=== PATIENT | male | born 1940 | race Caucasian/White ===

== ENCOUNTER 2017-12-27 15:54 | Emergency (ER) | payer MEDICARE ==
--- NOTE | 2017-12-27 16:52 | ED ---
HPI Cardiac - HPI Summary HPI Summary: This patient is a 77 year old M [facility] sister after his PCP sent him for an abnormal EKG. Pt saw Dr Tobias for a routine physical this morning and was sent here. The patient rates the pain 0/10 in severity. Patient denies SOB, CP, palpitations, fever, cough, ABD pain, LE edema , and recent illness. Pt has chronic ARRIETA s/p triple bypass. Pt states that he feels fine and has no complaints at this time. - History of Current Complaint Chief Complaint: EDDysrhythmPalp Stated Complaint: SENT OVER BY DR TOBIAS Time Seen by Provider: 12/27/17 16:41 Hx Obtained From: Patient Onset/Duration: Still Present Current Severity: None Pain Intensity: 0 Pain Scale Used: 0-10 Numeric Chest Pain Radiates: No Aggravating Factor(s): Nothing Alleviating Factor(s): Nothing Associated Signs and Symptoms: Positive: Negative - SOB, CP, palpitations, fever , cough, ABD pain, LE edema, and recent illness - Allergy/Home Medications Allergies/Adverse Reactions: Allergies Allergy/AdvReac Type Severity Reaction Status Date / Time No Known Allergies Allergy Verified 07/04/15 12:27 Home Medications: Home Medications Atorvastatin* [Lipitor*] 20 mg PO QPM 12/27/17 [History Confirmed 12/27/17] Cholecalciferol (Vitamin D3) [Vitamin D3] 1,000 unit PO DAILY 12/27/17 [History Confirmed 12/27/17] Cyanocobalamin INJ * [Vitamin B12 INJ *] 1,000 mcg IM .EVERY 3 MONTHS 12/27/17 [ History Confirmed 12/27/17] Glimepiride 1 mg PO AC 12/27/17 [History Confirmed 12/27/17] Lisinopril TAB* [Prinivil TAB*] 10 mg PO DAILY 12/27/17 [History Confirmed 12/27] Metoprolol Tartrate TAB* [Lopressor TAB*] 50 mg PO BID 12/27/17 [History Confirmed 12/27/17] amLODIPine TAB* [Norvasc 5 mg TAB*] 5 mg PO DAILY 12/27/17 [History Confirmed ] PMH/Surg Hx/FS Hx/Imm Hx Endocrine/Hematology History: Reports: Hx Diabetes - DM 2, Hx Thyroid Disease - HYPOTHYROIDISM Denies: Hx Systemic Lupus Erythematosus Cardiovascular History: Reports: Hx Coronary Artery Disease, Hx Hypercholesterolemia - HLD, Hx Hypertension - not on meds, Hx Valvular Heart Disease - SEVERE AORTIC REGURITATION, HX MECHANICAL (NOW BOVINE) VALVE, Other Cardiovascular Problems/Disorders - borderline diabetic, on metformin only Denies: Hx Congestive Heart Failure, Hx Pacemaker/ICD Respiratory History: Denies: Hx Asthma Musculoskeletal History: Denies: Hx Rheumatoid Arthritis Sensory History: Reports: Hx Hearing Aid - DOES NOT WEAR, Hx Hearing Problem - [place], HEARING AIDES NOT WITH PT Psychiatric History: Denies: Hx Panic Disorder - Surgical History Surgery Procedure, Year, and Place: CAROTID ARTERY (NO STENTS) SEPTEMBER 2014;. CABG 2002 WITH MECHANICAL AORTIC VALVE ;. MECHANICAL VALVE REPLACEMENT AT [facility] 10/2012 TO BOVINE VALVE; ( CURRENTLY ONLY HAS A BOVINE VALVE ) NO HEART STENTS CAN FIND THIS SURGERY INFORMATION IN SCANNED IN REPORTS; Hx Anesthesia Reactions: No Infectious Disease History: No Infectious Disease History: Denies: Traveled Outside the [place] in Last 30 Days - Social History Alcohol Use: None Substance Use Type: Reports: None Smoking Status (MU): Never Smoked Tobacco Review of Systems Negative: Fever Negative: Chest Pain Negative: Shortness Of Breath Negative: Abdominal Pain Negative: Edema All Other Systems Reviewed And Are Negative: Yes Physical Exam - Summary Physical Exam Summary: Appearance: Well-appearing, Well-nourished, lying in bed comfortably Skin: Warm, dry, no obvious rash Eyes: sclera anicteric, no conjunctival pallor ENT: mucous membranes moist, pharynx appears normal Neck: Supple, nontender Respiratory: Clear to auscultation, no signs of respiratory distress Cardiovascular: Normal S1, S2. No murmurs. Normal distal pulses in tibial and radial bilaterally. Abdomen: Soft, nontender, normal active bowel sounds present Musculoskeletal: Normal, Strength/ROM Intact Neurological: A&Ox3, awake and alert, mentation is normal, speech is fluent and appropriate Psychiatric: affect is normal, does not appear anxious or depressed Triage Information Reviewed: Yes Vital Signs On Initial Exam: Initial Vitals Temp Pulse Resp BP Pulse Ox 97.6 F 60 16 145/64 98 12/27/17 16:05 12/27/17 16:05 12/27/17 16:05 12/27/17 16:05 12/27/17 16:05 Vital Signs Reviewed: Yes Diagnostics - Vital Signs Vital Signs Temp Pulse Resp BP Pulse Ox 12/27/17 16:05 97.6 F 60 16 145/64 98 - Laboratory Result Diagrams: 12/27/17 16:56 12/27/17 16:56 Lab Statement: Any lab studies that have been ordered have been reviewed, and results considered in the medical decision making process. - EKG 1610 Cardiac Rate: NL EKG Rhythm: Sinus Bradycardia - at 63 BPM EKG Interpretation: diffuse t wave changes Disposition - Course Assessment/Plan: This patient is a 77 year old M presenting to [facility] accompanied by his sister after his PCP sent him for an abnormal EKG. Pt saw Dr Tobias for a routine physical this morning and was sent here. The patient rates the pain 0/10 in severity. Patient denies SOB, CP, palpitations, fever, cough, ABD pain, LE edema, and recent illness. Pt has chronic ARRIETA s/p triple bypass. Pt states that he feels fine and has no complaints at this time. An EKG reveals diffuse t wave inversions and NSR. Blood work obtained. Patient will be discharged follow up from PCP. The patient is agreeable with this plan. - Diagnoses Provider Diagnoses: Acute electrocardiogram changes Discharge - Sign-Out/Discharge Documenting (check all that apply): Patient Departure - Discharge Plan Condition: Good Disposition: HOME Patient Education Materials: Coronary Artery Disease (DC) Referrals: Amos Tobias MD [Primary Care Provider] - Additional Instructions: You have not had any symptoms referable to your heart recently and your blood tests are good, there is no sign of any heart damage recently. 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 - Attestation Statements Document Initiated by Scribe: Yes Documenting Scribe: Rm Pineda Provider For Whom Zakiya is Documenting (Include Credential): Chalo Mcknight MD Scribe Attestation: IRm, scribed for Chalo Mcknight MD on 12/27/17 at 1919.
[2017-12-27 17:09] LABS: ABS Basophils 0.1 10^3/ul (0-0.2); ABS Eosinophils 0.1 10^3/ul (0-0.6); ABS Lymphocytes 1.3 10^3/ul (1.0-4.8); ABS Monocytes 0.6 10^3/ul (0-0.8); ABS Neutrophils 3.3 10^3/ul (1.5-7.7); ABS Nucleated RBC 0 10^3/ul; Eosinophil % 2.3 % (0-6); Hematocrit 38 % (42-52); Hemoglobin 12.3 g/dl (14.0-18.0); Mean Corpuscular HGB Conc 33 g/dl (31-36); Mean Corpuscular Hemoglobin 32 pg (27-31); Mean Corpuscular Volume 97 fL (80-94); Mean Platelet Volume 7.3 um3 (7.4-10.4); Nucleated Red Blood Cells % 0.1; Platelet Count 188 10^3/ul (150-450); Red Blood Count 3.85 10^6/ul (4.00-5.40); Red Cell Distribution Width 15 % (10.5-15); White Blood Count 5.4 10^3/ul (3.5-10.8)
[2017-12-27 17:22] LABS: EGFR Non-African American 35.6 (>60)
[2017-12-27 20:33] VITALS: BP 152/84
== END 2017-12-27 20:20 | disposition home or self-care (01) ==
LOC: ED 15:54
DX: R94.31 Abnormal electrocardiogram [ECG] [EKG] (principal); R00.1 Bradycardia, unspecified; I25.10 Atherosclerotic heart disease of native coronary artery without angina pectoris; I10 Essential (primary) hypertension; E11.9 Type 2 diabetes mellitus without complications; E03.9 Hypothyroidism, unspecified; Z79.899 Other long term (current) drug therapy
CPT/HCPCS: 36415; 80048; 84484; 85025; 93005; 99284

== ENCOUNTER 2018-06-14 19:23 | Emergency (ER) | payer MEDICARE ==
[2018-06-14 19:37] VITALS: BP 125/58
== END 2018-06-14 23:28 | disposition left against medical advice (07) ==
LOC: ED 19:23
DX: R06.02 Shortness of breath (principal); Z53.21 Procedure and treatment not carried out due to patient leaving prior to being seen by health care provider

== ENCOUNTER 2018-06-15 08:16 | Inpatient (IN) | payer MEDICARE ==
--- NOTE | 2018-06-15 09:41 | ED ---
Shortness of Breath - HPI Summary HPI Summary: A 77 y/o male presents to [facility] with a chief complaint of SOB for the past few days. He reports that his left leg is swollen and his SOB is worsened when he walks and is better at rest. He denies chest pain. At triage he rated his pain as a 0/10 in severity. Vital signs while in room HR: 66bpm, O2 Sat: 92, BP: 110 /53 - History of Current Complaint Chief Complaint: EDShortnessOfBreath Time Seen by Provider: 06/15/18 08:55 Hx Obtained From: Patient Onset/Duration: Sudden Onset, Lasting Days Timing: Constant Current Severity: Mild Dyspnea At: Exertion Aggrevating Factors: Movement Alleviating Factors: Other - rest Associated Signs & Symptoms: Edema - Allergy/Home Medications Allergies/Adverse Reactions: Allergies Allergy/AdvReac Type Severity Reaction Status Date / Time No Known Allergies Allergy Verified 06/15/18 08:18 PMH/Surg Hx/FS Hx/Imm Hx Endocrine/Hematology History: Reports: Hx Diabetes - DM 2, Hx Thyroid Disease - HYPOTHYROIDISM Denies: Hx Systemic Lupus Erythematosus Cardiovascular History: Reports: Hx Coronary Artery Disease, Hx Hypercholesterolemia - HLD, Hx Hypertension - not on meds, Hx Valvular Heart Disease - SEVERE AORTIC REGURITATION, HX MECHANICAL (NOW BOVINE) VALVE, Other Cardiovascular Problems/Disorders - borderline diabetic, on metformin only Denies: Hx Congestive Heart Failure, Hx Pacemaker/ICD Respiratory History: Denies: Hx Asthma Musculoskeletal History: Denies: Hx Rheumatoid Arthritis Sensory History: Reports: Hx Hearing Aid - DOES NOT WEAR, Hx Hearing Problem - [place], HEARING AIDES NOT WITH PT Psychiatric History: Denies: Hx Panic Disorder - Surgical History Surgery Procedure, Year, and Place: CAROTID ARTERY (NO STENTS) SEPTEMBER 2014;. CABG 2002 WITH MECHANICAL AORTIC VALVE ;. MECHANICAL VALVE REPLACEMENT AT [facility] 10/2012 TO BOVINE VALVE; ( CURRENTLY ONLY HAS A BOVINE VALVE ) NO HEART STENTS CAN FIND THIS SURGERY INFORMATION IN SCANNED IN REPORTS; Hx Anesthesia Reactions: No Infectious Disease History: No Infectious Disease History: Denies: Traveled Outside the [place] in Last 30 Days - Family History Known Family History: Negative: Blood Disorder - Social History Alcohol Use: None Substance Use Type: Reports: None Smoking Status (MU): Never Smoked Tobacco Review of Systems Negative: Fever Negative: Chest Pain Positive: Shortness Of Breath All Other Systems Reviewed And Are Negative: Yes Physical Exam - Summary Physical Exam Summary: Appearance: The patient is well-nourished in no acute distress and in no acute pain. Skin: The skin is warm and dry and skin color reflects adequate perfusion. HEENT: The head is normocephalic and atraumatic. The pupils are equal and reactive. The conjunctivae are clear and without drainage. Nares are patent and without drainage. Mouth reveals moist mucous membranes and the throat is without erythema and exudate. The external ears are intact. The ear canals are patent and without drainage. The tympanic membranes are intact. Neck: The neck is supple with full range of motion and non-tender. There are no carotid bruits. There is no neck vein distension. Respiratory: Chest is non-tender. Crackles [address] bil[address]. Cardiovascular: Heart is borderline tachycardic. There is no murmur or rub auscultated. Pulses are symmetrical and equal. Abdomen: The abdomen is soft and non-tender. There are normal bowel sounds heard in all four quadrants and there is no organomegaly palpated. Musculoskeletal: There is no back tenderness noted. Extremities are non-tender with full range of motion. There is good capillary refill. Bilateral pitting edema, left leg is worse than right. Neurological: Patient is alert and oriented to person, place and time. The patient has symmetrical motor strength in all four extremities. Cranial nerves are grossly intact. Deep tendon reflexes are symmetrical and equal in all four extremities. Psychiatric: The patient has an appropriate affect and does not exhibit any anxiety or depression. Triage Information Reviewed: Yes Vital Signs On Initial Exam: Initial Vitals Temp Pulse Resp BP Pulse Ox 97.3 F 67 20 121/58 96 06/15/18 08:18 06/15/18 08:18 06/15/18 08:18 06/15/18 08:18 06/15/18 08:18 Vital Signs Reviewed: Yes Diagnostics - Vital Signs Vital Signs Temp Pulse Resp BP Pulse Ox 06/15/18 09:26 94 06/15/18 09:14 69 24 135/63 96 06/15/18 09:00 66 20 91 06/15/18 08:46 20 06/15/18 08:45 70 96 06/15/18 08:44 65 110/53 95 03/21/19 08:18 97.3 F 67 20 121/58 96 - Laboratory Result Diagrams: 06/15/18 09:40 06/15/18 09:40 Lab Statement: Any lab studies that have been ordered have been reviewed, and results considered in the medical decision making process. - Radiology CXR Radiology Interpretation Completed By: Radiologist Summary of Radiographic Findings: Pulmonary edema with associated RIGHT larger than LEFT pleural effusions new compared. with the prior exam. ED physician has reviewed this imaging report. - EKG 09:34 Cardiac Rate: NL - 68 bpm EKG Rhythm: Sinus Rhythm Ectopy: PVCs EKG Comparison: No Significant Change Summary of EKG Findings: Normal sinus rhythm at 68 bpm, PVCs, no change from previous EKG done 12/27/17. Course/Dx - Diagnoses Provider Diagnoses: CHF (congestive heart failure) - Physician Notifications Discussed Care of Patient With: Magalie Urias Time Discussed With Above Provider: 11:19 Instructed by Provider To: Admit As Inpatient Discharge - Sign-Out/Discharge Documenting (check all that apply): Patient Departure - admit Patient Received Moderate/Deep Sedation with Procedure: No - Discharge Plan Condition: Fair Disposition: ADMITTED TO [facility] Referrals: Amos Reed MD [Primary Care Provider] - - Attestation Statements Document Initiated by Scribe: Yes Documenting Scribe: Jef Blackwood Provider For Whom Scribe is Documenting (Include Credential): Chalo Alvarenga MD Scribe Attestation: Jef Mansfield, scribed for Chalo Alvarenga MD on 06/15/18 at 1121. Status of Scribe Document: Ready
[2018-06-15 10:13] LABS: ABS Basophils 0.1 10^3/ul (0-0.2); ABS Eosinophils 0.1 10^3/ul (0-0.6); ABS Lymphocytes 0.8 10^3/ul (1.0-4.8); ABS Monocytes 0.6 10^3/ul (0-0.8); ABS Neutrophils 4.2 10^3/ul (1.5-7.7); ABS Nucleated RBC 0 10^3/ul; Eosinophil % 1.3 %; Hematocrit 33 % (36-46); Hemoglobin 10.7 g/dL (14.0-18.0); Lymphocyte % 14.5 %; Mean Corpuscular HGB Conc 32 g/dL (31-36); Mean Corpuscular Hemoglobin 32 pg (27-31); Mean Corpuscular Volume 98 fL (80-94); Mean Platelet Volume 7.4 fL (7.4-10.4); Nucleated Red Blood Cells % 0.1; Platelet Count 195 10^3/uL (150-450); Red Blood Count 3.39 10^6 /uL (4.18-5.48); Red Cell Distribution Width 16 % (10.5-15); White Blood Count 5.8 10^3/uL (3.5-10.8)
[2018-06-15 10:37] LABS: ALT 23 U/L (7-52); AST 27 U/L (13-39); Albumin 3.6 g/dL (3.2-5.2); Albumin/Globulin Ratio 1.3 (1-3); Alkaline Phosphatase 141 U/L (34-104); BUN/Creatinine Ratio 22.4 (8-20); Blood Urea Nitrogen 46 mg/dL (6-24); C Reactive Protein 11.96 mg/L (<8.01); CO2 Carbon Dioxide 18 mmol/L (22-32); Calcium 8.7 mg/dL (8.6-10.3); Chloride 107 mmol/L (101-111); EGFR African American 38.3 (>60); EGFR Non-African American 31.6 (>60); Globulin 2.7 g/dL (2-4); Glucose 73 mg/dL (70-100); Sodium 134 mmol/L (135-145); Total Protein 6.3 g/dL (6.4-8.9)
[2018-06-15 11:03] LABS: Anion Gap 9 mmol/L (2-11); Potassium 5.6 mmol/L (3.5-5.0); Troponin I 0.04 ng/mL (<0.04)
[2018-06-15 11:46] LABS: Urine Appearance Clear; Urine Blood 1+ (Negative); Urine Color Yellow; Urine Ketones Negative (Negative); Urine Nitrite Negative (Negative); Urine Protein 1+(30 mg/dL) (Negative); Urine Urobilinogen Negative (Negative)
[2018-06-15 11:47] LABS: Urine Bilirubin Negative (Negative); Urine Glucose Negative (Negative)
[2018-06-15] MEDS ORDERED: Acetaminophen TAB* 325 MG PO PRN (12:16)
[2018-06-15] MEDS ORDERED: Dextrose 50% Syringe 50 ML* 25 GM/50 ML SYRINGE IV PUSH PRN (12:22)
[2018-06-15] MEDS ORDERED: Furosemide IV* 10 MG/ML 10 ML VIAL (100 MG) IV ONE (12:40)
--- NOTE | 2018-06-15 14:47 | ECHO ---
Patient: VITALIY KAY [facility] Rec#: [id number] : 1940 Date: 06/15/2018 Age: 77y Height: 163 cm / 64.2 in Weight: 86 kg / 189.5 lbs Sex: M BSA: 1.92 Room#: [facility] Admit Date#: 06/15/2018 Type: Inpatient Referring: Dione Woodard Reading: Quincy Carey MD Commercial Light Fixture Assembler: Sara Horvath RDCS CC: Amos Reed MD CC: Marcos Palencia MD Transthoracic Echocardiogram Indication: Congestive heart failure BP: 121/63 HR: 75 Rhythm: NSR with PVCs Findings History: DMII, hypothyroidism, CAD, HLD, HTN, AVR (Bovine) 2012, CABG. Technical Comments: The study quality is fair. Completed at 1400. Left Ventricle: The left ventricular chamber size is mildly dilated. Mild concentric left ventricular hypertrophy is observed. There are multiple regional wall motion abnormalities. There is moderately decreased left ventricular systolic function. The estimated ejection fraction is 35-40%. Post surgical hypokinesis of the interventricular septum is observed consistent with valve replacement. The assessment of diastolic function is non-diagnostic. Left Atrium: The left atrium is moderate to severely dilated. Right Ventricle: The right ventricle is mild to moderately dilated. The right ventricular global systolic function is moderately reduced. Right Atrium: The right atrium is moderate to severely dilated. Aortic Valve: The aortic valve structure is not well visualized. There is a trace of aortic regurgitation. There is mild aortic stenosis. The mean gradient of the aortic valve is 12 mmHg. The peak instantaneous gradient of the aortic valve is 23 mmHg. A bovine bio-prosthetic aortic valve is present. which appears to be normally functioning. Mitral Valve: There is mitral annular calcification. Mild mitral leaflet calcification is visualized. There is mild to moderate mitral regurgitation. Tricuspid Valve: The tricuspid valve leaflets are normal. There is mild to moderate tricuspid regurgitation. The right ventricular systolic pressure is estimated at 52 mmHg. There is evidence of moderate pulmonary hypertension. Pulmonic Valve: The pulmonic valve structure is not well visualized. There is no evidence of pulmonic regurgitation. There is no pulmonic stenosis. Pericardium: There is no significant pericardial effusion. Aorta: There is no dilatation of the ascending aorta. There is no dilatation of the aortic arch. The aortic root is normal in size. Pulmonary Artery: The main pulmonary artery is not well visualized. Venous: The inferior vena cava is not visualized. Conclusions There is moderately decreased left ventricular systolic function. The estimated ejection fraction is 35-40%. There are multiple regional wall motion abnormalities. The left ventricular chamber size is mildly dilated. Mild concentric left ventricular hypertrophy is observed. The left atrium is moderate to severely dilated. The right ventricle is mild to moderately dilated. The right ventricular global systolic function is moderately reduced. The right atrium is moderate to severely dilated. A bovine bio-prosthetic aortic valve is present which appears to be normally functioning. There is mild to moderate mitral regurgitation. There is mild to moderate tricuspid regurgitation. There is evidence of moderate pulmonary hypertension. Since the prior echocardiogram completed 08/19/16, pertinennt changes are prior normal right and left ventricular sized noted, prior normal right and left ventricular function noted and prior no pulmonary hypertension noted Measurements Name Value Normal Range RVIDd (AP) 2D 3.4 cm (0.9 - 2.6) RVDdMajor (2D) 5.2 cm (2.2 - 4.4) RAd ISD 4CH 6 cm (3.4 - 4.9) RA (A4C)W 5.3 cm (2.9 - 4.6) IVSd (2D) 1.1 cm (0.6 - 1) LVPWd (2D) 1.1 cm (0.6 - 1) LVIDd (2D) 5.6 cm (3.6 - 5.4) LVIDs (2D) 4.6 cm - LV FS (2D) 18 % (25 - 45) Aortic Annulus 2 cm (1.4 - 2.6) Ao root diameter (2D) 3 cm (2.1 - 3.5) Ascending Ao 3.2 cm (2.1 - 3.4) Aortic arch 3.1 cm (1.8 - 3.4) LA dimension (AP) 2D 4.9 cm (2.3 - 3.8) LAd ISD 4CH 6.5 cm (2.9 - 5.3) LA ISD 4CH W 5.8 cm (2.5 - 4.5) Name Value Normal Range LA ESV BP (A/L) index 49 ml/m2 - Name Value Normal Range MV E-wave Vmax 1.1 m/sec - MV deceleration time 162 msec - MV A-wave Vmax 0.4 m/sec - MV E:A ratio 3 ratio - LV septal e' Vmax 0.05 m/sec - LV lateral e' Vmax 0.06 m/sec - LV E:e' septal ratio 22 ratio - LV E:e' lateral ratio 18.3 ratio - Name Value Normal Range AV Vmax 2.4 m/sec - AV VTI 49 cm - AV peak gradient 23 mmHg - AV mean gradient 12 mmHg - LVOT diameter 2 cm - LVOT Vmax 0.6 m/sec - LVOT VTI 15 cm - LVOT peak gradient 2 mmHg - LVOT mean gradient 1 mmHg - DOI (VTI) 0.31 ratio - MIRELLA (continuity VTI) 0.93 cm2 - DARYL Vmax 1.5 m/sec - Name Value Normal Range MR Vmax 5.2 m/sec - MR VTI 155 cm - MR flow (PISA) 108.1 ml/sec - MR ERO 0.21 cm2 - MR PISA radius 0.7 cm - MR alias Vmax 35.1 cm/sec - Name Value Normal Range TR Vmax 3.3 m/sec - TR peak gradient 44 mmHg - RAP 8 mmHg - RVSP 52 mmHg - Name Value Normal Range PV Vmax 1.1 m/sec - PV peak gradient 5 mmHg -
[2018-06-15] MEDS: Aspirin EC TAB* 81 MG TAB.EC PO SCH (16:26)
[2018-06-15] MEDS: Heparin VIAL(*) 5000 UNITS/ML VIAL (FIVE THOUSAND) SUBCUT SCH ×2 (16:26→21:18)
[2018-06-15 16:36] LABS: Troponin I 0.05 ng/mL (<0.04)
--- NOTE | 2018-06-15 16:56 | HP ---
CC: Dr. Reed; Dr. Palencia * HISTORY AND PHYSICAL: DATE OF ADMISSION: 06/15/18 PROVIDER: Dione Woodard NP PRIMARY CARE PROVIDER: Dr. Reed. ATTENDING PHYSICIAN WHILE IN THE HOSPITAL: Dr. Magalie Urias * (dictated by Dione Woodard NP). CHIEF COMPLAINT: Shortness of breath. HISTORY OF PRESENT ILLNESS: Mr. Walker is a 77-year-old male with a past medical history significant for hypertension, hyperlipidemia, aortic valve replacement, chronic ischemic heart disease, congestive heart failure, CAD, atrial fibrillation, hypothyroid, diabetes and B12 deficiency anemia, who presented to the emergency room with complaints of shortness of breath with exertion x1 week. The patient denies any other symptoms. Denies any fever or chills. Denies any chest pain. He does report increased lower extremity swelling. No cough, hemoptysis. Does report shortness of breath with exertion. Denies any nausea, vomiting, or diarrhea. Denies any abdominal pain, hematuria, dysuria, focal weakness, or sensory loss. Denies any arthralgias, myalgias, difficulty swallowing. He does have scabbed abrasions noted to bilateral lower extremities. Due to his increased shortness of breath, we were asked to see and evaluate him for admission. PAST MEDICAL HISTORY: Significant for: 1. Hypertension. 2. Hyperlipidemia. 3. Aortic valve replacement. 4. Chronic ischemic heart disease. 5. Congestive heart failure. 6. CAD. 7. Atrial fibrillation. 8. Hypothyroid. 9. Diabetes. 10. Vitamin B12 deficiency anemia. PAST SURGICAL HISTORY: 1. Left carotid endarterectomy. 2. CABG in October 2012. 3. LASIK eye surgery. 4. Aortic valve replacement in October 2012. HOME MEDICATIONS: 1. Atorvastatin 20 mg p.o. daily. 2. Aspirin 81 mg p.o. daily. 3. Lisinopril 10 mg p.o. daily. 4. Levothyroxine 75 mcg p.o. daily. 5. Glimepiride 1 mg p.o. a.c. 6. Vitamin B12 injection 1000 mcg every 3 months, is due for injection in June. 7. Vitamin D3 1000 units p.o. daily. 8. Metformin 1000 mg p.o. b.i.d. 9. Amlodipine 5 mg p.o. daily. 10. Metoprolol tartrate 50 mg p.o. b.i.d. ALLERGIES: No known drug allergies. FAMILY HISTORY: No reported history of coronary artery disease. Mother with a history of diabetes. Father with a history of colon cancer, and two sisters with breast cancer. SOCIAL HISTORY: Denies any tobacco use. Occasional alcohol use. No illicit drug use. He is retired. He is single. He lives with his 2 sisters. Surrogate decision maker in the event he is unable to make his own decisions is his sister, Kassidy. He is a full code. REVIEW OF SYSTEMS: A 14-point review of systems was completed. All pertinent positives are mentioned in the HPI. PHYSICAL EXAMINATION GENERAL: At this time, Mr. Walker is a 77-year-old male, he is alert and oriented , very hard of hearing, resting on the stretcher in the emergency room. He is not in any acute distress. HEENT: Head is atraumatic, normocephalic. Eyes: EOMs are intact. Sclerae anicteric and not pale. Oral mucosa appeared to be moist. NECK: Supple. He does have positive JVD. LUNGS: Diminished with expiratory wheezes and crackles at the bases bilaterally. HEART: S1, S2. He has irregular rate and rhythm. ABDOMEN: Soft and nontender. Bowel sounds are present x4. EXTREMITIES: Lower extremities, pedal pulses are +1 bilaterally. He has got + 2 pitting edema to bilateral lower extremities. Left leg is worse than right. NEUROLOGIC: He is awake, alert, oriented x3. Speech is clear. He has a severe hearing deficit with bilateral hearing aids. He has no gross focal deficits. SKIN: He has scattered abrasions noted to bilateral lower extremities. DIAGNOSTIC STUDIES/LAB DATA: WBCs are 5.8, RBCs 3.39, hemoglobin 10.7, hematocrit 33, platelet count 195. D-dimer is greater than 1050. Sodium 134, potassium 5.6, chloride 107, carbon dioxide was 18, anion gap 9, BUN 46, creatinine 2.05, glucose was 73, lactic acid was 1.1. ASTs were 27, ALTs were 23, alkaline phosphatase was 141. Troponin was 0.04. C-reactive protein was 11.96. BNP was greater than 1300. Urine, pH was 5, specific gravity 1.020, urine protein was 1+, ketones were negative, urine blood was 1+. Nitrites, bilirubin, urobilinogen, leukocyte esterase and glucose were all negative. He had a chest x-ray, radiologist's impression: Pulmonary edema associated with right larger than left pleural effusions. EKG shows minimal depression in V2 and flipped Ts. T-wave inversions in lead I, V4, V5 and V6 which are chronic. He had a venous Doppler. No evidence of right or left lower extremity DVT. He had transthoracic echocardiogram, which showed estimated ejection fraction 35% to 40%, moderately decreased left ventricular systolic function, multiple regions of wall motion abnormality, left ventricular chamber size is mildly dilated, left atrium is moderate to severely dilated, right ventricle is moderate to severely dilated. Right ventricular global systolic function is moderately reduced. ASSESSMENT AND PLAN: Mr. Walker is a 77-year-old male who presented to the emergency room for complaints of increased shortness of breath with exertion x1 week and lower extremity swelling, found to have congestive heart failure. He will be admitted inpatient for: 1. Acute congestive heart failure. I suspect this is the cause of his exertional shortness of breath. His BNP was greater than 1300. He does have + 2 to +3 pitting edema to bilateral lower extremities. There is no reported weight gain. The patient does appear comfortable resting in bed. I will give him a small dose of Lasix 20 mg IV. We will monitor on telemetry. I will place him on strict I's and O's and daily weights. We have ordered a transthoracic echocardiogram, which does show a decreased ejection fraction. 2. Diabetes. I will place him on fingersticks a.c. with lispro sliding scale. I will hold his glimepiride and metformin at this time. 3. Hypertension. I will continue him on metoprolol and lisinopril. We are going to hold his lisinopril as we are giving him diuretics and continue his amlodipine at 5 mg p.o. daily. 4. Hyperlipidemia. We will continue his atorvastatin. 5. Coronary artery disease. We will continue on aspirin, statin and beta sanaz as previously prescribed. 6. Hypothyroid. I will continue on his levothyroxine at 75 mcg p.o. daily. 7. Hyperkalemia. His potassium is 5.6 on admission. I will repeat a potassium level at 8 p.m. this evening as he did receive Lasix and I suspect this will bring his potassium level down. If it does not, we will consider a dose of Kayexalate to help bring the potassium down. 8. Elevated D-dimer. The patient does have an elevated D-dimer of greater than 1050 with reports of increased shortness of breath x1 week. His Wells score is 0 giving him a low risk. He has a negative venous ultrasound of the bilateral lower extremities . 9. Code status: He is a full code. 10. DVT prophylaxis: I will place him on heparin subcu. 11. Disposition: He will be placed on observation on telemetry. TIME SPENT: Time spent on this admission was 60 minutes, greater than half that time was spent [id number] with the patient obtaining my history and physical, performing my physical exam, the other half of the time was spent implementing my plan of care and reviewing my plan of care. I have discussed this with my attending, Dr. Magalie Urias; she is in agreement with my plan. DIONE WOODARD, MARCELO [id number]/CPS #: [id number] MIKE
[2018-06-15] MEDS: Insulin LISPRO* 1 UNITS UNIT SUBCUT SCH (17:08)
[2018-06-15] MEDS: Atorvastatin* 20 MG TAB PO SCH (17:08)
[2018-06-15 20:19] LABS: Potassium 5.2 mmol/L (3.5-5.0)
[2018-06-15] MEDS: Metoprolol Tartrate TAB* 50 mg PO SCH (21:18)
[2018-06-16 01:01] LABS: Troponin I 0.05 ng/mL (<0.04)
[2018-06-16] MEDS: Levothyroxine TAB* 75 MCG TAB PO SCH (05:03)
[2018-06-16] MEDS: Heparin VIAL(*) 5000 UNITS/ML VIAL (FIVE THOUSAND) SUBCUT SCH ×3 (05:03→21:08)
[2018-06-16 06:41] LABS: ABS Basophils 0.1 10^3/ul (0-0.2); ABS Eosinophils 0.1 10^3/ul (0-0.6); ABS Lymphocytes 0.8 10^3/ul (1.0-4.8); ABS Monocytes 0.6 10^3/ul (0-0.8); ABS Neutrophils 4.5 10^3/ul (1.5-7.7); ABS Nucleated RBC 0 10^3/ul; Eosinophil % 1.2 %; Hematocrit 33 % (36-46); Lymphocyte % 12.9 %; Mean Corpuscular HGB Conc 33 g/dL (31-36); Mean Corpuscular Hemoglobin 32 pg (27-31); Mean Corpuscular Volume 97 fL (80-94); Mean Platelet Volume 7.6 fL (7.4-10.4); Nucleated Red Blood Cells % 0; Platelet Count 201 10^3/uL (150-450); Red Blood Count 3.46 10^6 /uL (4.18-5.48); Red Cell Distribution Width 16 % (10.5-15)
[2018-06-16 07:09] LABS: Calcium 9.1 mg/dL (8.6-10.3); EGFR African American 38.3 (>60); EGFR Non-African American 31.6 (>60)
[2018-06-16 07:11] LABS: Potassium 5.2 mmol/L (3.5-5.0)
[2018-06-16] MEDS: Insulin LISPRO* 1 UNITS UNIT SUBCUT SCH ×3 (07:54→16:09)
[2018-06-16] MEDS: Metoprolol Tartrate TAB* 50 mg PO SCH ×2 (08:36→21:08)
[2018-06-16] MEDS: Aspirin EC TAB* 81 MG TAB.EC PO SCH (08:37)
[2018-06-16] MEDS: amLODIPine TAB* 5 MG PO SCH (08:37)
[2018-06-16] MEDS ORDERED: Furosemide IV* 10 MG/ML VIAL (40 MG) IV ONE (14:34)
--- NOTE | 2018-06-16 14:38 | PN ---
Subjective Date of Service: 06/16/18 Interval History: Mr. Walker is feeling well today. He offers no complaints. He is not sure why he is in the hospital because he has "always been pretty healthy." He is not sure what medications he is taking as his sisters manage his meds. He denies CP, SOB , dizziness. No complaints or concerns from nursing. Family History: Unchanged from Admission Social History: Unchanged from Admission Past Medical History: Unchanged from Admission Objective Active Medications: Acetaminophen (Tylenol Tab*) 650 mg PO Q4H PRN FEVER/PAIN Amlodipine Besylate (Norvasc Tab*) 5 mg PO DAILY MICHELE Aspirin (Aspirin Ec Tab*) 81 mg PO DAILY MICHELE Atorvastatin Calcium (Lipitor*) 20 mg PO QPM [facility] Dextrose (D50w Syringe 50 Ml*) 12.5 gm IV PUSH .FOR FS < 60 - SS PRN FS < 60 Heparin Sodium (Porcine) (Heparin Vial(*)) 5,000 units SUBCUT Q8HR MICHELE Insulin Human Lispro (Humalog*) 0 units SUBCUT AC MICHELE; Protocol Levothyroxine Sodium (Synthroid Tab*) 75 mcg PO 0600 [facility] Metoprolol Tartrate (Lopressor Tab*) 50 mg PO BID [facility] Vital Signs - 8 hr 06/16/18 06/16/18 07:37 07:46 Temperature 97.8 F Pulse Rate 79 Respiratory 18 16 Rate Blood Pressure 145/68 (mmHg) O2 Sat by Pulse 91 Oximetry Oxygen Devices in Use Now: None Appearance: Elderly male laying in bed in NAD Eyes: No Scleral Icterus Ears/Nose/Mouth/Throat: Mucous Membranes Moist Neck: NL Appearance and Movements; NL JVP, Trachea Midline Respiratory: Symmetrical Chest Expansion and Respiratory Effort, - - Crackles to bilat bases, otherwise clear Cardiovascular: NL Sounds; No Murmurs; No JVD, RRR Abdominal: NL Sounds; No Tenderness; No Distention Extremities: - - +2 to +3 pitting BLE Neurological: - - Oriented to self and place Lines/Tubes/Other Access: Clean, Dry and Intact Peripheral IV Nutrition: Taking PO's Result Diagrams: 06/16/18 05:57 06/16/18 05:57 Assess/Plan/Problems-Billing Assessment: Mr. Walker is a 77 yo M with PMH of CHF, HTN, ischemic heart disease, CAD, afib, HLD, and DM2; who presented to the ED with c/o SOB and was found to have an acute CHF exacerbation. - Patient Problems (1) Acute on chronic systolic congestive heart failure Code(s): I50.23 - ACUTE ON CHRONIC SYSTOLIC (CONGESTIVE) HEART FAILURE Comment : - Presented with SOB and +2 pitting BLE - CXR shows pulmonary edema, bilat pleural effusions R>L - Echo shows EF 35-40% (previously 55-60%), new moderate pHTN, new L and R ventricle dilation - Lasix 40mg IV x1 today (2) Atrial fibrillation Code(s): I48.91 - UNSPECIFIED ATRIAL FIBRILLATION Comment: - Rate controlled - CHADS-VASC2 score is 6 and it is not clear why he is not on anticoagulation - Continue metoprolol (3) Hypertension Code(s): I10 - ESSENTIAL (PRIMARY) HYPERTENSION Comment: - Normotensive, SBP 110-140s - Continue amlodipine, metoprolol (4) CAD (coronary artery disease) Code(s): I25.10 - ATHSCL HEART DISEASE OF [place] CORONARY ARTERY W/O ANG PCTRS Comment: - Continue aspirin, atorvastatin (5) Chronic ischemic heart disease Code(s): I25.9 - CHRONIC ISCHEMIC HEART DISEASE, UNSPECIFIED Comment: - Stable, trop at baseline - Continue aspirin (6) Diabetes mellitus, type 2 Comment: - A1c pending - Takes metformin at home, but GFR is borderline for discontinuation of therapy so he should likely not resume this at d/c - Hold glimepiride - Continue Lispro SS (7) Stage 3 chronic kidney disease Code(s): N18.3 - CHRONIC KIDNEY DISEASE, STAGE 3 (MODERATE) Comment: - Creatinine appears to be around baseline - CrCl 35 (8) Anemia, B12 deficiency Code(s): D51.9 - VITAMIN B12 DEFICIENCY ANEMIA, UNSPECIFIED Comment: - Slightly more anemic than baseline - Continue to trend (9) Hypothyroidism Code(s): E03.9 - HYPOTHYROIDISM, UNSPECIFIED Comment: - Continue levothyroxine (10) DVT prophylaxis Comment: - Heparin SQ (11) Full code status Code(s): Z78.9 - OTHER SPECIFIED HEALTH STATUS Comment: Status and Disposition: Inpatient for continued diuresis. Anticipate d/c home when medically stable. Attending: Jo Perdue
[2018-06-16 16:51] LABS: Potassium 4.9 mmol/L (3.5-5.0)
[2018-06-16] MEDS: Atorvastatin* 20 MG TAB PO SCH (17:31)
[2018-06-17] MEDS: Levothyroxine TAB* 75 MCG TAB PO SCH (04:56)
[2018-06-17] MEDS: Heparin VIAL(*) 5000 UNITS/ML VIAL (FIVE THOUSAND) SUBCUT SCH (04:56)
[2018-06-17 06:36] LABS: ABS Basophils 0.1 10^3/ul (0-0.2); ABS Eosinophils 0.1 10^3/ul (0-0.6); ABS Lymphocytes 1.1 10^3/ul (1.0-4.8); ABS Monocytes 0.8 10^3/ul (0-0.8); ABS Neutrophils 4.2 10^3/ul (1.5-7.7); ABS Nucleated RBC 0 10^3/ul; Eosinophil % 2.2 %; Hematocrit 35 % (36-46); Hemoglobin 11.4 g/dL (14.0-18.0); Lymphocyte % 17.4 %; Mean Corpuscular HGB Conc 33 g/dL (31-36); Mean Corpuscular Hemoglobin 32 pg (27-31); Mean Corpuscular Volume 97 fL (80-94); Mean Platelet Volume 7.4 fL (7.4-10.4); Nucleated Red Blood Cells % 0.1; Platelet Count 206 10^3/uL (150-450); Red Blood Count 3.63 10^6 /uL (4.18-5.48); Red Cell Distribution Width 16 % (10.5-15); White Blood Count 6.3 10^3/uL (3.5-10.8)
[2018-06-17 06:59] LABS: BUN/Creatinine Ratio 18.1 (8-20); Calcium 9.3 mg/dL (8.6-10.3); EGFR African American 41.1 (>60); EGFR Non-African American 33.9 (>60)
[2018-06-17 07:04] LABS: Potassium 5.5 mmol/L (3.5-5.0)
[2018-06-17] MEDS: Insulin LISPRO* 1 UNITS UNIT SUBCUT SCH (08:46)
[2018-06-17] MEDS: amLODIPine TAB* 5 MG PO SCH (09:07)
[2018-06-17] MEDS: Metoprolol Tartrate TAB* 50 mg PO SCH (09:07)
[2018-06-17] MEDS: Aspirin EC TAB* 81 MG TAB.EC PO SCH (09:08)
--- NOTE | 2018-06-17 10:57 | PN ---
Subjective Date of Service: 06/17/18 Interval History: Mr. Walker reports feeling much better today. He denies chest pain or SOb. His lower extremity edema is much improved. His family concur that he looks much better today. Family History: Unchanged from Admission Social History: Unchanged from Admission Past Medical History: Unchanged from Admission Objective Active Medications: Acetaminophen (Tylenol Tab*) 650 mg PO Q4H PRN Amlodipine Besylate (Norvasc Tab*) 5 mg PO DAILY MICHELE Aspirin (Aspirin Ec Tab*) 81 mg PO DAILY MICHELE Atorvastatin Calcium (Lipitor*) 20 mg PO QPM [facility] Dextrose (D50w Syringe 50 Ml*) 12.5 gm IV PUSH .FOR FS < 60 - SS PRN Heparin Sodium (Porcine) (Heparin Vial(*)) 5,000 units SUBCUT Q8HR MICHE[facility] Insulin Human Lispro (Humalog*) 0 units SUBCUT AC MICHELE; Protocol Levothyroxine Sodium (Synthroid Tab*) 75 mcg PO 0600 [facility] Metoprolol Tartrate (Lopressor Tab*) 50 mg PO BID [facility] Vital Signs: Temp Pulse Resp BP Pulse Ox 98.1 F 81 20 151/61 92 06/17/18 07:33 06/17/18 07:33 06/17/18 07:33 06/17/18 07:33 06/17/18 07:33 Oxygen Devices in Use Now: None Appearance: Male sitting up in chair in NAD Eyes: No Scleral Icterus Ears/Nose/Mouth/Throat: Mucous Membranes Moist Neck: Trachea Midline Respiratory: Symmetrical Chest Expansion and Respiratory Effort, Clear to Auscultation Cardiovascular: NL Sounds; No Murmurs; No JVD, - - +1-2 pitting edema B LEs Abdominal: NL Sounds; No Tenderness; No Distention Skin: No Rash or Ulcers Neurological: Alert and Oriented x 3, NL Muscle Strength and Tone, - - very [place] Nutrition: Taking PO's Result Diagrams: 06/17/18 06:04 06/17/18 06:04 Assess/Plan/Problems-Billing Assessment: Mr. Walker is a 77 yo M with PMH of CHF, HTN, ischemic heart disease, CAD, afib, HLD, and DM2; who presented to the ED with c/o SOB and was found to have an acute CHF exacerbation. - Patient Problems (1) Acute on chronic systolic congestive heart failure Comment: - Resolving - Presented with SOB and +2 pitting BLE - CXR shows pulmonary edema, bilat pleural effusions R>L - Echo shows EF 35-40% (previously 55-60%), new moderate pHTN, new L and R ventricle dilation - Patient will need daily furosemide and close follow up with Dr. Palencia, family aware (2) Stage 3 chronic kidney disease Comment: - Creatinine at baseline (3) Hypertension Comment: - Normotensive, SBP 110-140s - Continue amlodipine, metoprolol (4) Atrial fibrillation Comment: - Rate controlled - CHADS-VASC2 score is 6 and it is not clear why he is not on anticoagulation - Continue metoprolol (5) CAD (coronary artery disease) Comment: - Continue aspirin, atorvastatin (6) History of aortic valve replacement Comment: - noted (7) Diabetes mellitus, type 2 Comment: - A1c 6.1 - Takes metformin at home, but GFR is borderline for discontinuation of therapy so he should likely not resume this at d/c - Hold glimepiride - Continue Lispro SS (8) Anemia, B12 deficiency Comment: - Stable (9) Hypothyroidism Comment: - Continue levothyroxine (10) DVT prophylaxis Current Visit: Yes Status: Acute Comment: - Heparin SQ (11) Full code status Comment: Status and Disposition: Inpatient for continued diuresis. Discharge to home.
[2018-06-17 11:39] VITALS: BP 111/56
--- NOTE | 2018-06-17 14:10 | DS ---
CC: Dr. Reed; Dr. Palencia * HOSPITAL MEDICINE DISCHARGE SUMMARY: DATE OF ADMISSION: 06/15/18 DATE OF DISCHARGE: 06/17/18 PRIMARY CARE PROVIDER: Dr. Reed. CRIMINAL INTELLIGENCE SPECIALIST: Dr. Palencia. ATTENDING PHYSICIAN: Dr. Jo Perdue * (dictation provided by Sharee Burton NP) . PRIMARY DIAGNOSIS: Acute on chronic systolic congestive heart failure. SECONDARY DIAGNOSES: 1. Coronary artery bypass grafting in 2012. 2. Bovine aortic valve replacement in 2012. 3. Hypertension. 4. Hyperlipidemia. 5. Chronic ischemic heart disease. 6. Chronic congestive heart failure. 7. Coronary artery disease. 8. Hypothyroidism. 9. Type 2 diabetes, noninsulin dependent. 10. Vitamin B12 deficiency. MEDICATIONS AT THE TIME OF DISCHARGE: 1. Furosemide 20 mg p.o. daily (new medication). 2. Atorvastatin 20 mg p.o. daily. 3. Aspirin 81 mg p.o. daily. 4. Lisinopril 10 mg p.o. daily. 5. Levothyroxine 75 mcg p.o. daily. 6. Glimepiride 1 mg p.o. q.a.c. 7. Vitamin B12 injections 1000 mcg every 3 months, due for injection in June. 8. Vitamin D3 1000 units p.o. daily. 9. Metoprolol tartrate 50 mg p.o. b.i.d. 10. Hold metformin due to creatinine of 1.93. 11. Amlodipine 5 mg p.o. daily. HOSPITAL COURSE: Mr. Walker is a 77-year-old male with past medical history as outlined above, who presented to the emergency room on 06/15/18 with concern for shortness of breath and lower extremity swelling. Please see the dictated H and P from Dione Woodard NP, for complete details. In brief, the patient had noticed the swelling and shortness of breath for a few days. In the ED, he had a chest x-ray which showed pulmonary edema with right greater than left pleural effusions. He had labs which showed a BNP of greater than 1300. Based on his presentation, I suspected that he had an acute on chronic congestive heart failure exacerbation. The remainder of his workup included troponin which was 0.05, the first check was 0.04, repeat check showed they were stable at 0.05 x2. His BUN and creatinine were at baseline. His C-reactive protein was 11.96. For lower extremity edema, he did have a venous Doppler study that showed no evidence for right or left lower extremity DVT. Mr. Walker was admitted to the hospital and treated with furosemide for his suspected CHF. He had a transthoracic echocardiogram that showed new changes including a new ejection fraction of 35% to 40%, multiple regional wall motion abnormalities, right and left atrial dilatation as well as new moderate pulmonary hypertension. These changes were new when compared to last echocardiogram 08/19/16. Mr. Walker has been doing well today. He has been up and ambulating in his room without any difficulty. He shows significant improvement in his lower extremity edema. He is not hypoxic and not short of breath with minimal activity. The patient's family has assistance with me and they agreed that he looks much better than yesterday. Mr. Walker is medically stable for discharge to home. He will be following very closely with Dr. Palencia in the outpatient setting for the changes noted on his echocardiogram and for consideration of stress testing or possible cardiac catheterization; however, at this time, the patient is stable. He is not having acute coronary syndrome and can be worked up in the outpatient setting. DISPOSITION: Home. DIET: Low fat, low salt, low carb. ACTIVITY: As tolerated. 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 FOLLOWUP PLANS: 1. Please follow up with Dr. Palencia. The patient's family has been recommended to call on Tuesday a.m. for an appointment. 2. Please follow up with Dr. Reed per routine. 3. I asked the patient's family to follow up with Dr. Palencia regarding possibility of initiation of anticoagulation for the patient's atrial fibrillation, he was not on this on admission. Mr. Walker is medically stable for discharge to home. TIME SPENT: Approximately 60 minutes was spent on the discharge of this patient , more than half the time was spent with the patient at the bedside, reviewing the events leading up to this hospitalization and during this hospitalization, performing the physical examination, and reviewing my plan of care. SHAREE BURTON NP [id number]/[facility] #: [id number] MIKE
== END 2018-06-17 14:15 | disposition home or self-care (01) | DRG 291 ==
LOC: ED 08:16 → MEDTELE 12:16
PROVIDERS: ADMIT Hospitalist; ATTEND Hospitalist
DX: I13.0 Hypertensive heart and chronic kidney disease with heart failure and stage 1 through stage 4 chronic kidney disease, or unspecified chronic kidney disease (principal); I50.23 Acute on chronic systolic (congestive) heart failure; E03.9 Hypothyroidism, unspecified; I25.10 Atherosclerotic heart disease of native coronary artery without angina pectoris; E78.00 Pure hypercholesterolemia, unspecified; I27.20 Pulmonary hypertension, unspecified; N18.3 Chronic kidney disease, stage 3 (moderate); E11.22 Type 2 diabetes mellitus with diabetic chronic kidney disease; D51.9 Vitamin B12 deficiency anemia, unspecified; E78.5 Hyperlipidemia, unspecified; E87.5 Hyperkalemia; H91.90 Unspecified hearing loss, unspecified ear; I25.9 Chronic ischemic heart disease, unspecified; I48.91 Unspecified atrial fibrillation; Z83.3 Family history of diabetes mellitus; Z95.3 Presence of xenogenic heart valve; Z95.1 Presence of aortocoronary bypass graft; Z72.89 Other problems related to lifestyle; Z80.0 Family history of malignant neoplasm of digestive organs; Z79.82 Long term (current) use of aspirin; Z79.84 Long term (current) use of oral hypoglycemic drugs
CPT/HCPCS: 36415; 71046; 74018; 80048; 80051; 80053; 81003; 81015; 83036; 83605; 83880; 84132; 84484; 85025; 85379; 86140; 93005; 93306; 93970; 99284; A9270-GY; J1644; J1940

== ENCOUNTER 2018-07-06 09:14 | Inpatient (IN) | payer MEDICARE ==
--- NOTE | 2018-07-06 10:28 | ED ---
HPI Chest Pain - HPI Summary HPI Summary: Patient is a 77-year-old male who presents emergency department for an episode of vomiting and chest pain prior to arrival. Patient resides with his sister who is present. Sister states they were going to get breakfast when patient had one episode of vomiting outside and then developed right-sided chest pain that has since resolved. Patient's sister notes that patient was admitted last month for CHF and was started on Lasix 20 mg at home. Pt. states that his leg swelling has persisted and he is still complaining of shortness of breath with activities. Patient is not wearing his hearing aids and majority of history of present illness was obtained from patient's history. Pt. denies recent illness, cough, fever, abd. pain, diarrhea, urinary sxs. Pt. currently denies CP or SOB in the ED. Symptoms are moderate in severity. No current modifying factors. - History of Current Complaint Chief Complaint: EDChestPainROMI Time Seen by Provider: 07/06/18 09:30 Hx Obtained From: Patient Pain Intensity: 4 - Additional Pertinent History Primary Care Physician: TERRY - Allergy/Home Medications Allergies/Adverse Reactions: Allergies Allergy/AdvReac Type Severity Reaction Status Date / Time No Known Allergies Allergy Verified 07/06/18 09:24 PMH/Surg Hx/FS Hx/Imm Hx Previously Healthy: Yes Endocrine/Hematology History: Reports: Hx Diabetes - DM 2, Hx Thyroid Disease - HYPOTHYROIDISM Denies: Hx Systemic Lupus Erythematosus Cardiovascular History: Reports: Hx Coronary Artery Disease, Hx Hypercholesterolemia - HLD, Hx Hypertension - not on meds, Hx Valvular Heart Disease - SEVERE AORTIC REGURITATION, HX MECHANICAL (NOW BOVINE) VALVE, Other Cardiovascular Problems/Disorders - borderline diabetic, on metformin only Denies: Hx Congestive Heart Failure, Hx Pacemaker/ICD Respiratory History: Denies: Hx Asthma Musculoskeletal History: Denies: Hx Rheumatoid Arthritis Sensory History: Reports: Hx Hearing Aid - DOES NOT WEAR, Hx Hearing Problem Denies: Hx Contacts or Glasses Opthamlomology History: Denies: Hx Contacts or Glasses Psychiatric History: Denies: Hx Panic Disorder - Surgical History Surgery Procedure, Year, and Place: CAROTID ARTERY (NO STENTS) SEPTEMBER 2014;. CABG 2002 WITH MECHANICAL AORTIC VALVE ;. MECHANICAL VALVE REPLACEMENT AT [facility] 10/2012 TO BOVINE VALVE; ( CURRENTLY ONLY HAS A BOVINE VALVE ) NO HEART STENTS CAN FIND THIS SURGERY INFORMATION IN SCANNED IN REPORTS; Hx Anesthesia Reactions: No Infectious Disease History: No Infectious Disease History: Denies: Traveled Outside the [place] in Last 30 Days - Family History Known Family History: Negative: Blood Disorder - Social History Lives: With Family Alcohol Use: None Substance Use Type: Reports: None Smoking Status (MU): Never Smoked Tobacco Review of Systems Constitutional: Negative Negative: Fever, Chills Eyes: Negative ENT: Negative Positive: Chest Pain. Negative: Palpitations Positive: Shortness Of Breath, Cough Positive: Vomiting. Negative: Abdominal Pain, Diarrhea Genitourinary: Negative Skin: Negative Neurological: Negative All Other Systems Reviewed And Are Negative: Yes Physical Exam Triage Information Reviewed: Yes Vital Signs On Initial Exam: Initial Vitals Temp Pulse Resp BP Pulse Ox 97.4 F 73 16 125/63 94 07/06/18 09:18 07/06/18 09:18 07/06/18 09:18 07/06/18 09:18 07/06/18 09:18 Vital Signs Reviewed: Yes Appearance: Positive: Well-Appearing - Pt. sitting up in bed in NAD. Sister present. Pleasant. Skin: Positive: Warm, Dry Head/Face: Positive: Normal Head/Face Inspection Eyes: Positive: Normal, EOMI Respiratory/Lung Sounds: Positive: Other - Diminished breath sounds in bases Cardiovascular: Positive: Normal, RRR Abdomen Description: Positive: Nontender, Soft Musculoskeletal: Positive: Other - +2 pitting edema bilaterally. Neurological: Positive: Normal, CN Intact II-III Psychiatric: Positive: Affect/Mood Appropriate Diagnostics - Vital Signs Vital Signs Temp Pulse Resp BP Pulse Ox 07/06/18 10:00 71 13 94/59 93 07/06/18 09:46 92 07/06/18 09:30 77 99/65 93 07/06/18 09:18 97.4 F 73 16 125/63 94 - Laboratory Result Diagrams: 07/06/18 10:19 07/06/18 10:19 Lab Statement: Any lab studies that have been ordered have been reviewed, and results considered in the medical decision making process. Chest Pain Course/Dx - Course Course Of Treatment: Patient presenting for evaluation after an episode of chest pain and emesis. Patient currently denies chest pain or shortness of breath in the ER. He is afebrile. Oxygen saturation low 90s on room air. Patient was placed on monitor and workup ordered. ECG done at 0948 shows a sinus rhtyhm of 74bpm, left axis deviation, inverted t waves, no STEMI, similar to prior tracing. Labs show normal WBC, chronic anemia, renal insufficiency, troponin elevated at 0.05, BNP greater than 1300. Patient was given a dose of aspirin. Chest x-ray shows pleural effusion on the right, reading per radiology. IV lasix ordered. I spoke with Dr. Callaway and pt. has been accepted to her service. - Chest Pain Differential Diagnosis/HQI/PQRI: Acute RI, ACS, Angina, CHF, Lower Respiratory Infection - Diagnoses Provider Diagnoses: CHF (congestive heart failure), Elevated troponin I level Discharge - Sign-Out/Discharge Documenting (check all that apply): Patient Departure Patient Received Moderate/Deep Sedation with Procedure: No - Discharge Plan Condition: Stable Disposition: ADMITTED TO [facility] - Billing Disposition and Condition Condition: STABLE Disposition: Admitted to [facility]
[2018-07-06 10:36] LABS: Activated Partial Thrombo Time 30.5 seconds (26.0-36.3); INR 1.15 (0.77-1.02)
[2018-07-06 10:39] LABS: ABS Basophils 0.1 10^3/ul (0-0.2); ABS Eosinophils 0 10^3/ul (0-0.6); ABS Lymphocytes 0.8 10^3/ul (1.0-4.8); ABS Monocytes 0.8 10^3/ul (0-0.8); ABS Neutrophils 5.4 10^3/ul (1.5-7.7); ABS Nucleated RBC 0 10^3/ul; Eosinophil % 0.4 %; Hematocrit 30 % (36-46); Hemoglobin 10.1 g/dL (14.0-18.0); Lymphocyte % 10.7 %; Mean Corpuscular HGB Conc 33 g/dL (31-36); Mean Corpuscular Hemoglobin 32 pg (27-31); Mean Corpuscular Volume 96 fL (80-94); Mean Platelet Volume 7.4 fL (7.4-10.4); Nucleated Red Blood Cells % 0; Platelet Count 211 10^3/uL (150-450); Red Blood Count 3.15 10^6 /uL (4.18-5.48); Red Cell Distribution Width 16 % (10.5-15)
[2018-07-06 10:47] LABS: ALT 27 U/L (7-52); AST 25 U/L (13-39); Albumin 3.4 g/dL (3.2-5.2); Albumin/Globulin Ratio 1.1 (1-3); Alkaline Phosphatase 167 U/L (34-104); Anion Gap 8 mmol/L (2-11); BUN/Creatinine Ratio 22.6 (8-20); Blood Urea Nitrogen 45 mg/dL (6-24); CO2 Carbon Dioxide 24 mmol/L (22-32); Calcium 8.9 mg/dL (8.6-10.3); Chloride 105 mmol/L (101-111); EGFR African American 39.6 (>60); EGFR Non-African American 32.7 (>60); Glucose 147 mg/dL (70-100); Sodium 137 mmol/L (135-145); Total Protein 6.4 g/dL (6.4-8.9)
[2018-07-06 10:51] LABS: Troponin I 0.05 ng/mL (<0.04)
[2018-07-06] MEDS ORDERED: Aspirin 81 mg CHEW TAB* 81 MG TAB.CHEW PO ONE (11:23)
[2018-07-06] MEDS ORDERED: Furosemide IV* 10 MG/ML 2 ML VIAL (20 MG) IV SLOW PU ONE (11:29)
[2018-07-06 13:18] LABS: Troponin I 0.05 ng/mL (<0.04)
[2018-07-06] MEDS ORDERED: Acetaminophen TAB* 325 MG PO PRN (13:34)
[2018-07-06] MEDS: Heparin VIAL(*) 5000 UNITS/ML VIAL (FIVE THOUSAND) SUBCUT SCH ×2 (15:33→21:11)
--- NOTE | 2018-07-06 16:12 | HP ---
CC: Dr. Reed; Dr. Palencia * HISTORY AND PHYSICAL: DATE OF ADMISSION: 07/06/18 PROVIDER: Dione Woodard NP PRIMARY CARE PROVIDER: Dr. Reed. ATTENDING PHYSICIAN WHILE IN THE HOSPITAL: Dr. Lara King * (dictated by Dione Woodard NP). CHIEF COMPLAINT: Shortness of breath. HISTORY OF PRESENT ILLNESS: Mr. Walker is a 77-year-old male with past medical history significant for hypertension, hyperlipidemia, aortic valve replacement, chronic ischemic heart disease, history of diastolic congestive heart failure, CAD, atrial fibrillation, hypothyroid, diabetes, vitamin B12 deficiency and anemia, who presented to the emergency room by private vehicle with his sister whom he lives with, with the reported complaint per the sister of shortness of breath and right-sided chest pain after an episode of vomiting. The sister reports that the vomiting was reported by a neighbor as the patient was outside. The sister also reports that the patient complained of increased swelling to his lower legs. He denies any fever or chills. Currently denies any chest pain. He currently denies any shortness of breath. He denies any cough or hemoptysis. The sister does report that the patient does have memory issues. The patient denies any abdominal pain, hematuria, dysuria, focal weakness or sensory loss. Denies any joint or muscle aches, difficulty swallowing. He does have scab lesion noted to bilateral lower extremities. Due to the shortness of breath and right-sided chest pain, we were asked to see and evaluate him for admission. The sister also reports that [facility]. She does report when he walks, he does have to stop frequently to rest and catch his breath. The patient denies any shortness of breath with ambulation or exertion. The sister also reports that the patient was able to participate in his weekly bowling match yesterday without any difficulty. While in the emergency room, the patient had routine lab work drawn and was given Lasix 20 mg IV and aspirin 324 mg p.o. The patient reports that he is feeling well and that he does not feel short of breath. He is profoundly hard of hearing. The patient was recently admitted for diastolic congestive heart failure on 06/15/18. At that time, he was started on Lasix and his symptoms improved. He did follow up with Dr. Palencia on 06/20/18 and at that time, Dr. Palencia had recommended to continue Lasix 20 mg p.o. daily and a repeat echocardiogram in 4 weeks. At this time, Mr. Walker would be admitted for acute on chronic diastolic congestive heart failure. PAST MEDICAL HISTORY: Significant for: 1. Hypertension. 2. Hyperlipidemia. 3. Aortic valve replacement. 4. Chronic ischemic heart disease. 5. Diastolic congestive heart failure. 6. Coronary artery disease. 7. Atrial fibrillation 8. Hypothyroid. 9. Diabetes. 10. Vitamin D deficiency. 11. Chronic kidney disease. PAST SURGICAL HISTORY: 1. Left carotid endarterectomy. 2. CABG in October 2012. 3. LASIK eye surgery. 4. Aortic valve replacement in October 2012. HOME MEDICATIONS: Include: 1. Atorvastatin 20 mg p.o. daily. 2. Aspirin 81 mg p.o. daily. 3. Lisinopril 10 mg p.o. daily. 4. Levothyroxine 75 mcg p.o. daily. 5. Glimepiride 1 mg p.o. a.c. 6. Vitamin B12 injections 1000 mcg every 3 months. 7. Vitamin D3 1000 units p.o. daily. 8. Amlodipine 5 mg p.o. daily. 9. Metoprolol 50 mg p.o. b.i.d. ALLERGIES: No known drug allergies. FAMILY HISTORY: No reported history of coronary artery disease. Mother with a history of diabetes. Father with a history of colon cancer and 2 sisters with breast cancer. SOCIAL HISTORY: Denies any tobacco. Does report occasional alcohol use. Denies any illicit drug use. He is retired. He is single. He lives with his 2 sisters. Surrogate decision maker in the event he is unable to make his own decisions is his sister, Kassidy. He is a full code. REVIEW OF SYSTEMS: A 14-point review of systems was completed, all pertinent positives are mentioned in the HPI PHYSICAL EXAMINATION GENERAL: At this time, Mr. Walker is 77-year-old male. He is alert and oriented with some difficulty with short-term memory, very profoundly hard of hearing, sitting on the stretcher in the emergency room. He does appear to have some mild respiratory distress. HEENT: Head is atraumatic, normocephalic. Eyes: EOMs are intact. Sclerae anicteric, not pale. Oral mucosa appears to be moist. NECK: Supple. LUNGS: Diminished correction up on the right with crackles on the left base. HEART: S1 and S2, regular rate and rhythm. ABDOMEN: Soft and nontender. Bowel sounds are present x4. EXTREMITIES: Lower extremities, pedal pulses are +1 bilaterally. He does have +2 to +3 pitting edema in his bilateral lower extremities, left leg is worse than the right. NEUROLOGIC: He is awake, alert and oriented x3. His speech is clear. He does have a severe hearing deficit. He does not have any gross focal deficits. Thought process is intact. He does appear to have some memory issues, short term. SKIN: He does have scattered abrasions noted to bilateral lower extremities that are healing without redness. DIAGNOSTIC STUDIES/LAB DATA: WBCs are 7.0, RBC 3.15, hemoglobin 10.1, hematocrit 30, platelet count 211, INR 1.15. Sodium 137, potassium 5.0, chloride 105, carbon dioxide 24, anion gap was 8, BUN 45 and creatinine 1.99, which is at his baseline. GFR was 32.7, glucose is 147, lactic acid was 1.1, calcium 8.9, magnesium was 2.0, T-bilirubin was 1.5. ASTs are 25, ALTs are 27, alkaline phosphatase was 67. Troponin is 0.05 x2. BNP was greater than 1300. He had an x-ray of his chest, radiologist's impression: Cardiomegaly, pulmonary interstitial edema, right pleural effusion that is small to moderate with fluid tracking along the minor fissure. He had an electrocardiogram, which showed sinus rhythm at a rate of 74. He does have T-wave inversion in lead [address]- depression in V5 which appears to be consistent with his previous EKG on 06/15/18. ASSESSMENT AND PLAN: Mr. Walker is 77-year-old male, who presented to the emergency room with complaints of lower extremity swelling and shortness of breath. He was found to have acute diastolic congestive heart failure with a right pleural effusion. He will be admitted for: 1. Acute diastolic congestive heart failure. I suspect this is the cause of his shortness of breath. His BNP is greater than 1300. He does have +2 to +3 pitting edema to bilateral lower extremities, left worse than right. He does appear to have some mild shortness of breath. He was given Lasix 20 mg IV in the emergency room. We will monitor him on the telemetry. I will place him on strict Is and Os, daily weights. He recently had transthoracic echocardiogram during his last admission on 06/15/18, which showed a decreased EF of 35 to 40% . He also has an elevated troponin at 0.05 suspect this is related to demand ischemia from fluid overload. Will continue diuretics based on response and tolerance to the dose given in the ER. 2. Right pleural effusion. We will continue with diuresis. We may have to consider a thoracentesis if the patient's respiratory symptoms do not improve. 3. Diabetes. I will place him on fingersticks a.c. with lispro sliding scale. I am going to hold his glimepiride at this time. 4. Hypertension. I will continue him on metoprolol. I am going to hold his lisinopril. We will continue him on amlodipine 5 mg with holding parameters for systolic blood pressure less than 120. 5. Hyperlipidemia. I will continue on his atorvastatin. 6. Coronary artery disease. We will continue him on aspirin, statin, beta blockers as previously prescribed. 7. Hypothyroidism. He will continue on his levothyroxine 75 mcg p.o. daily. 8. Code status. He is full code. 9. DVT prophylaxis. We will place him on heparin subcu. 10. FEN. The patient can have heart-healthy, caffeine-okay diet. 11. Disposition. He will be placed in observation on telemetry. Condition on admission is guarded. TIME SPENT: Time spent on this admission was 60 minutes, greater than half the time was spent [id number] with the patient obtaining my history and physical, performing my physical exam, the other half time was spent implementing my plan of care and reviewing my plan of care. I have discussed this with my attending, Dr. Lara King, she is in agreement with my plan. DIONE EULALIA, CARTON CATCHER [id number]/[facility] #: [id number] MIKE
[2018-07-06 16:13] LABS: Troponin I 0.05 ng/mL (<0.04)
[2018-07-06] MEDS ORDERED: Dextrose 50% Syringe 50 ML* 25 GM/50 ML SYRINGE IV PUSH PRN (16:27)
[2018-07-06] MEDS: Insulin LISPRO* 1 UNITS UNIT SUBCUT SCH (17:13)
[2018-07-06] MEDS: Atorvastatin* 20 MG TAB PO SCH (17:13)
[2018-07-06] MEDS: Metoprolol Tartrate TAB* 50 mg PO SCH (21:11)
[2018-07-07] MEDS: Levothyroxine TAB* 75 MCG TAB PO SCH (05:41)
[2018-07-07] MEDS: Heparin VIAL(*) 5000 UNITS/ML VIAL (FIVE THOUSAND) SUBCUT SCH ×3 (05:41→20:26)
[2018-07-07] MEDS: Insulin LISPRO* 1 UNITS UNIT SUBCUT SCH ×3 (09:19→17:00)
[2018-07-07] MEDS: Cholecalciferol TAB* 1000 UNITS PO SCH (09:45)
[2018-07-07] MEDS: Aspirin EC TAB* 81 MG TAB.EC PO SCH (09:45)
[2018-07-07] MEDS: amLODIPine TAB* 5 MG PO SCH (09:48)
[2018-07-07] MEDS: Metoprolol Tartrate TAB* 50 mg PO SCH ×2 (09:51→20:26)
[2018-07-07] MEDS: Atorvastatin* 20 MG TAB PO SCH (17:45)
--- NOTE | 2018-07-07 17:55 | PN ---
Subjective Date of Service: 07/07/18 Interval History: Pt is feeling ok. He states he does not feel SOB. His aide today states he has walked several times and denies SOB each time. He has been coughing some, not bringing up any sputum. No abdominal issues. He notes his legs are still quite swollen. Objective Active Medications: Acetaminophen (Tylenol Tab*) 650 mg PO Q4H PRN PRN Reason: FEVER/PAIN Amlodipine Besylate (Norvasc Tab*) 5 mg PO DAILY [facility] Last Admin: 07/07/18 09:48 Dose: Not Given Aspirin (Aspirin Ec Tab*) 81 mg PO DAILY [facility] Last Admin: 07/07/18 09:45 Dose: 81 mg Atorvastatin Calcium (Lipitor*) 20 mg PO QPM [facility] Last Admin: 07/07/18 17:45 Dose: 20 mg Cholecalciferol (Vitamin D Tab*) 1,000 units PO DAILY [facility] Last Admin: 07/07/18 09:45 Dose: 1,000 units Dextrose (D50w Syringe 50 Ml*) 12.5 gm IV PUSH .FOR FS < 60 - SS PRN PRN Reason: FS < 60 Heparin Sodium (Porcine) (Heparin Vial(*)) 5,000 units SUBCUT Q8HR [facility] Last Admin: 07/07/18 14:09 Dose: 5,000 units Insulin Human Lispro (Humalog*) 0 units SUBCUT AC [facility]; Protocol Last Admin: 07/07/18 17:00 Dose: Not Given Levothyroxine Sodium (Synthroid Tab*) 75 mcg PO 0600 [facility] Last Admin: 07/07/18 05:41 Dose: 75 mcg Metoprolol Tartrate (Lopressor Tab*) 50 mg PO BID [facility] Last Admin: 07/07/18 09:51 Dose: 50 mg Vital Signs - 8 hr 07/07/18 07/07/18 14:21 15:19 Temperature 98.4 F 98.4 F Pulse Rate 82 73 Respiratory 16 20 Rate Blood Pressure 104/50 108/50 (mmHg) O2 Sat by Pulse 93 93 Oximetry Oxygen Devices in Use Now: Nasal Cannula Appearance: Elderly male sitting up in a chair, NAD Eyes: No Scleral Icterus Ears/Nose/Mouth/Throat: Mucous Membranes Moist Respiratory: Symmetrical Chest Expansion and Respiratory Effort, Clear to Auscultation - mildly diminished breath sounds in the bases Cardiovascular: RRR, - - II/ systolic murmur, 3+ LE edema Abdominal: NL Sounds; No Tenderness; No Distention Extremities: No Clubbing, Cyanosis Skin: No Nodules or Sclerosis Neurological: Alert and Oriented x 3 Result Diagrams: 07/06/18 10:19 07/06/18 10:19 Assess/Plan/Problems-Billing Mr Walker is a 77 yo M who has a h/o systolic CHF, HTN, CAD, CKD, afib and type II DM who presented to the ER with c/o SOB and was admitted for a diastolic CHF exacerbation. - Patient Problems (1) Acute on chronic systolic congestive heart failure Current Visit: Yes Status: Acute Code(s): I50.23 - ACUTE ON CHRONIC SYSTOLIC (CONGESTIVE) HEART FAILURE SNOMED Code(s): 841695914 Comment: SOB is improved though he continues to have marked LE edema. Will continue IV lasix. Possibly home tomorrow. (2) Atrial fibrillation Current Visit: Yes Status: Acute Code(s): I48.91 - UNSPECIFIED ATRIAL FIBRILLATION SNOMED Code(s): 14172609 Comment: HR is controlled. Continue metoprolol and ASA. Need to discuss with pt's sister why he is not on anticoagulation. (3) CAD (coronary artery disease) Current Visit: Yes Status: Acute Code(s): I25.10 - ATHSCL HEART DISEASE OF [place] CORONARY ARTERY W/O ANG PCTRS SNOMED Code(s): 20889403 Comment: Troponin mildly elevated likely secondary to demand ischemia. Continue aspirin, atorvastatin (4) Diabetes mellitus, type 2 Current Visit: Yes Status: Acute Comment: Continue glimepiride. Monitor FSBG and continue lispro sliding scale. (5) Hypertension Current Visit: Yes Status: Acute Code(s): I10 - ESSENTIAL (PRIMARY) HYPERTENSION SNOMED Code(s): 82354133 Comment: BP in good range. Continue current medication regimen. (6) Stage 3 chronic kidney disease Current Visit: Yes Status: Acute Code(s): N18.3 - CHRONIC KIDNEY DISEASE, STAGE 3 (MODERATE) SNOMED Code(s): 832340350 Comment: Creatinine at baseline-recheck BMP tomorrow. (7) Hypothyroidism Current Visit: Yes Status: Acute Code(s): E03.9 - HYPOTHYROIDISM, UNSPECIFIED SNOMED Code(s): 73275743 Comment: Continue levothyroxinen at current dose. (8) DVT prophylaxis Current Visit: Yes Status: Acute Code(s): MVU1257 - SNOMED Code(s): 241517073 Comment: Heparin SQ (9) Full code status Current Visit: Yes Status: Acute Code(s): Z78.9 - OTHER SPECIFIED HEALTH STATUS SNOMED Code(s): 128604414 Comment:
[2018-07-07] MEDS ORDERED: Furosemide IV* 10 MG/ML VIAL (40 MG) IV SLOW PU ONE (17:57)
[2018-07-07 22:07] LABS: Urine Appearance Clear; Urine Bilirubin Negative (Negative); Urine Blood Negative (Negative); Urine Color Straw; Urine Glucose Negative (Negative); Urine Ketones Negative (Negative); Urine Nitrite Negative (Negative); Urine Protein Negative (Negative); Urine Specific Gravity 1.006 (1.010-1.030); Urine Urobilinogen Negative (Negative)
[2018-07-08] MEDS: Levothyroxine TAB* 75 MCG TAB PO SCH (06:08)
[2018-07-08] MEDS: Heparin VIAL(*) 5000 UNITS/ML VIAL (FIVE THOUSAND) SUBCUT SCH ×3 (06:09→21:30)
[2018-07-08 06:34] LABS: BUN/Creatinine Ratio 25.6 (8-20); EGFR African American 40.6 (>60); EGFR Non-African American 33.5 (>60)
[2018-07-08] MEDS: Insulin LISPRO* 1 UNITS UNIT SUBCUT SCH ×3 (07:18→16:12)
[2018-07-08] MEDS: amLODIPine TAB* 5 MG PO SCH (08:38)
[2018-07-08] MEDS: Cholecalciferol TAB* 1000 UNITS PO SCH (08:39)
[2018-07-08] MEDS: Metoprolol Tartrate TAB* 50 mg PO SCH ×2 (08:39→21:29)
[2018-07-08] MEDS: Furosemide IV* 10 MG/ML VIAL (40 MG) IV SCH (08:39)
[2018-07-08] MEDS: Aspirin EC TAB* 81 MG TAB.EC PO SCH (08:39)
--- NOTE | 2018-07-08 16:53 | PN ---
Subjective Date of Service: 07/08/18 Interval History: Reports some improvement in breathing. Desaturated without oxygen on ambulation Objective Active Medications: Acetaminophen (Tylenol Tab*) 650 mg PO Q4H PRN PRN Reason: FEVER/PAIN Amlodipine Besylate (Norvasc Tab*) 5 mg PO DAILY [facility] Last Admin: 07/08/18 08:38 Dose: Not Given Aspirin (Aspirin Ec Tab*) 81 mg PO DAILY [facility] Last Admin: 07/08/18 08:39 Dose: 81 mg Atorvastatin Calcium (Lipitor*) 20 mg PO QPM [facility] Last Admin: 07/07/18 17:45 Dose: 20 mg Cholecalciferol (Vitamin D Tab*) 1,000 units PO DAILY [facility] Last Admin: 07/08/18 08:39 Dose: 1,000 units Dextrose (D50w Syringe 50 Ml*) 12.5 gm IV PUSH .FOR FS < 60 - SS PRN PRN Reason: FS < 60 Furosemide (Lasix Iv*) 40 mg IV DAILY [facility] Last Admin: 07/08/18 08:39 Dose: 40 mg Heparin Sodium (Porcine) (Heparin Vial(*)) 5,000 units SUBCUT Q8HR [facility] Last Admin: 07/08/18 12:46 Dose: 5,000 units Insulin Human Lispro (Humalog*) 0 units SUBCUT AC [facility]; Protocol Last Admin: 07/08/18 16:12 Dose: Not Given Levothyroxine Sodium (Synthroid Tab*) 75 mcg PO 0600 [facility] Last Admin: 07/08/18 06:08 Dose: 75 mcg Metoprolol Tartrate (Lopressor Tab*) 50 mg PO BID [facility] Last Admin: 07/08/18 08:39 Dose: 50 mg Vital Signs - 8 hr 07/08/18 07/08/18 07/08/18 11:46 15:16 15:29 Temperature 97.6 F 97.9 F Pulse Rate 70 68 Respiratory 14 16 Rate Blood Pressure 109/56 116/70 (mmHg) O2 Sat by Pulse 100 97 Oximetry Oxygen Devices in Use Now: Nasal Cannula Eyes: No Scleral Icterus Neck: NL Appearance and Movements; NL JVP Respiratory: Symmetrical Chest Expansion and Respiratory Effort, - - min crackles bases Cardiovascular: NL Sounds; No Murmurs; No JVD, RRR Abdominal: NL Sounds; No Tenderness; No Distention Extremities: - - 2+ Edema bilaterally Result Diagrams: 07/06/18 10:19 07/08/18 06:02 Assess/Plan/Problems-Billing Mr Walker is a 77 yo M who has a h/o systolic CHF, HTN, CAD, CKD, afib and type II DM who presented to the ER with c/o SOB and was admitted for a diastolic CHF exacerbation. - Patient Problems (1) Acute on chronic systolic congestive heart failure Current Visit: Yes Status: Acute Code(s): I50.23 - ACUTE ON CHRONIC SYSTOLIC (CONGESTIVE) HEART FAILURE SNOMED Code(s): 000664905 Comment: SOB is improved though he continues to have marked LE edema. Will continue IV lasix. Repeat CXR in am (2) Atrial fibrillation Current Visit: Yes Status: Acute Code(s): I48.91 - UNSPECIFIED ATRIAL FIBRILLATION SNOMED Code(s): 21330590 Comment: HR is controlled. Continue metoprolol and ASA. Need to discuss with pt's sister why he is not on anticoagulation. (3) CAD (coronary artery disease) Current Visit: Yes Status: Acute Code(s): I25.10 - ATHSCL HEART DISEASE OF [place] CORONARY ARTERY W/O ANG PCTRS SNOMED Code(s): 27989372 Comment: Troponin mildly elevated likely secondary to demand ischemia. Continue aspirin, atorvastatin (4) Diabetes mellitus, type 2 Current Visit: Yes Status: Acute Comment: Continue glimepiride. Monitor FSBG and continue lispro sliding scale. (5) Hypertension Current Visit: Yes Status: Acute Code(s): I10 - ESSENTIAL (PRIMARY) HYPERTENSION SNOMED Code(s): 05110630 Comment: BP in good range. Continue current medication regimen. (6) Hypothyroidism Current Visit: Yes Status: Acute Code(s): E03.9 - HYPOTHYROIDISM, UNSPECIFIED SNOMED Code(s): 78116367 Comment: Continue levothyroxinen at current dose. (7) Stage 3 chronic kidney disease Current Visit: Yes Status: Acute Code(s): N18.3 - CHRONIC KIDNEY DISEASE, STAGE 3 (MODERATE) SNOMED Code(s): 809495439 Comment: Creatinine at baseline-recheck BMP tomorrow.
[2018-07-08] MEDS: Atorvastatin* 20 MG TAB PO SCH (16:54)
[2018-07-09] MEDS: Levothyroxine TAB* 75 MCG TAB PO SCH (05:30)
[2018-07-09] MEDS: Heparin VIAL(*) 5000 UNITS/ML VIAL (FIVE THOUSAND) SUBCUT SCH ×3 (05:30→21:13)
[2018-07-09 07:20] LABS: ABS Basophils 0.1 10^3/ul (0-0.2); ABS Eosinophils 0.1 10^3/ul (0-0.6); ABS Lymphocytes 1.4 10^3/ul (1.0-4.8); ABS Monocytes 0.8 10^3/ul (0-0.8); ABS Neutrophils 3.4 10^3/ul (1.5-7.7); ABS Nucleated RBC 0 10^3/ul; Eosinophil % 2.3 %; Hematocrit 33 % (36-46); Hemoglobin 10.8 g/dL (14.0-18.0); Lymphocyte % 24.3 %; Mean Corpuscular HGB Conc 33 g/dL (31-36); Mean Corpuscular Hemoglobin 32 pg (27-31); Mean Corpuscular Volume 96 fL (80-94); Mean Platelet Volume 7.7 fL (7.4-10.4); Nucleated Red Blood Cells % 0.1; Platelet Count 219 10^3/uL (150-450); Red Blood Count 3.41 10^6 /uL (4.18-5.48); Red Cell Distribution Width 15 % (10.5-15); White Blood Count 5.9 10^3/uL (3.5-10.8)
[2018-07-09 07:36] LABS: BUN/Creatinine Ratio 26.6 (8-20); Calcium 9.1 mg/dL (8.6-10.3); EGFR African American 45.4 (>60); EGFR Non-African American 37.5 (>60)
[2018-07-09 07:39] LABS: Potassium 5.1 mmol/L (3.5-5.0)
[2018-07-09] MEDS: Insulin LISPRO* 1 UNITS UNIT SUBCUT SCH ×3 (10:17→17:28)
[2018-07-09] MEDS: amLODIPine TAB* 5 MG PO SCH (10:18)
[2018-07-09] MEDS: Cholecalciferol TAB* 1000 UNITS PO SCH (10:22)
[2018-07-09] MEDS: Metoprolol Tartrate TAB* 50 mg PO SCH ×2 (10:22→21:13)
[2018-07-09] MEDS: Furosemide IV* 10 MG/ML VIAL (40 MG) IV SCH ×2 (10:22→17:39)
[2018-07-09] MEDS: Aspirin EC TAB* 81 MG TAB.EC PO SCH (10:22)
--- NOTE | 2018-07-09 13:27 | PN ---
Subjective Date of Service: 07/09/18 Interval History: Was ambulated yesterday and was sob. On iv lasix. Objective Active Medications: Acetaminophen (Tylenol Tab*) 650 mg PO Q4H PRN PRN Reason: FEVER/PAIN Amlodipine Besylate (Norvasc Tab*) 5 mg PO DAILY [facility] Last Admin: 07/09/18 10:18 Dose: Not Given Aspirin (Aspirin Ec Tab*) 81 mg PO DAILY [facility] Last Admin: 07/09/18 10:22 Dose: 81 mg Atorvastatin Calcium (Lipitor*) 20 mg PO QPM [facility] Last Admin: 07/08/18 16:54 Dose: 20 mg Cholecalciferol (Vitamin D Tab*) 1,000 units PO DAILY [facility] Last Admin: 07/09/18 10:22 Dose: 1,000 units Dextrose (D50w Syringe 50 Ml*) 12.5 gm IV PUSH .FOR FS < 60 - SS PRN PRN Reason: FS < 60 Furosemide (Lasix Iv*) 40 mg IV DAILY [facility] Last Admin: 07/09/18 10:22 Dose: 40 mg Heparin Sodium (Porcine) (Heparin Vial(*)) 5,000 units SUBCUT Q8HR [facility] Last Admin: 07/09/18 05:30 Dose: 5,000 units Insulin Human Lispro (Humalog*) 0 units SUBCUT AC [facility]; Protocol Last Admin: 07/09/18 12:41 Dose: 1 units Levothyroxine Sodium (Synthroid Tab*) 75 mcg PO 0600 [facility] Last Admin: 07/09/18 05:30 Dose: 75 mcg Metoprolol Tartrate (Lopressor Tab*) 50 mg PO BID [facility] Last Admin: 07/09/18 10:22 Dose: 50 mg Vital Signs - 8 hr 07/09/18 07/09/18 07:53 11:27 Temperature 97.5 F 97.4 F Pulse Rate 72 73 Respiratory 16 16 Rate Blood Pressure 112/61 99/53 (mmHg) O2 Sat by Pulse 96 96 Oximetry Oxygen Devices in Use Now: Nasal Cannula Eyes: No Scleral Icterus Ears/Nose/Mouth/Throat: NL Teeth, Lips, Gums Neck: NL Appearance and Movements; NL JVP Respiratory: Symmetrical Chest Expansion and Respiratory Effort, - - min crackles bases dec bilateral air entry Cardiovascular: NL Sounds; No Murmurs; No JVD, RRR Abdominal: NL Sounds; No Tenderness; No Distention Lymphatic: No Cervical Adenopathy Extremities: No Edema, - - 2+ Edema bilaterally Neurological: Alert and Oriented x 3 Result Diagrams: 07/09/18 06:27 07/09/18 06:27 Assess/Plan/Problems-Billing Mr Walker is a 77 yo M who has a h/o systolic CHF, HTN, CAD, CKD, afib and type II DM who presented to the ER with c/o SOB and was admitted for a diastolic CHF exacerbation. - Patient Problems (1) Acute on chronic systolic congestive heart failure Current Visit: Yes Status: Acute Code(s): I50.23 - ACUTE ON CHRONIC SYSTOLIC (CONGESTIVE) HEART FAILURE SNOMED Code(s): 799166236 Comment: Repeat CXR with ongoing interstial edema LE edema ongoing Will increase lasix to 40 mg iv bid today and can decide on further dosing based on response Prior echo with poor ef 35-40% with dilated LA and cardiomyopathy Will repeat Echo If stablized can possibly go home in 1-2 days (2) Atrial fibrillation Current Visit: Yes Status: Acute Code(s): I48.91 - UNSPECIFIED ATRIAL FIBRILLATION SNOMED Code(s): 45456324 Comment: HR is controlled. Continue metoprolol and ASA. Need to discuss with pt's sister why he is not on anticoagulation. (3) CAD (coronary artery disease) Current Visit: Yes Status: Acute Code(s): I25.10 - ATHSCL HEART DISEASE OF [place] CORONARY ARTERY W/O ANG PCTRS SNOMED Code(s): 64654536 Comment: Troponin mildly elevated likely secondary to demand ischemia. Continue aspirin, atorvastatin (4) Diabetes mellitus, type 2 Current Visit: Yes Status: Acute Comment: Continue glimepiride. Monitor FSBG and continue lispro sliding scale. (5) Hypertension Current Visit: Yes Status: Acute Code(s): I10 - ESSENTIAL (PRIMARY) HYPERTENSION SNOMED Code(s): 34819626 Comment: BP in good range. Continue current medication regimen. (6) Hypothyroidism Current Visit: Yes Status: Acute Code(s): E03.9 - HYPOTHYROIDISM, UNSPECIFIED SNOMED Code(s): 81114088 Comment: Continue levothyroxinen at current dose. (7) Stage 3 chronic kidney disease Current Visit: Yes Status: Acute Code(s): N18.3 - CHRONIC KIDNEY DISEASE, STAGE 3 (MODERATE) SNOMED Code(s): 818557054 Comment: Creatinine at baseline-recheck BMP tomorrow.
[2018-07-09] MEDS: Atorvastatin* 20 MG TAB PO SCH (17:39)
[2018-07-10] MEDS: Heparin VIAL(*) 5000 UNITS/ML VIAL (FIVE THOUSAND) SUBCUT SCH (06:03)
[2018-07-10] MEDS: Levothyroxine TAB* 75 MCG TAB PO SCH (06:04)
[2018-07-10 07:03] LABS: ABS Basophils 0.1 10^3/ul (0-0.2); ABS Eosinophils 0.1 10^3/ul (0-0.6); ABS Lymphocytes 1.4 10^3/ul (1.0-4.8); ABS Neutrophils 3.9 10^3/ul (1.5-7.7); ABS Nucleated RBC 0 10^3/ul; Eosinophil % 1.6 %; Hematocrit 34 % (36-46); Lymphocyte % 21.4 %; Mean Corpuscular HGB Conc 33 g/dL (31-36); Mean Corpuscular Hemoglobin 31 pg (27-31); Mean Corpuscular Volume 96 fL (80-94); Mean Platelet Volume 7.3 fL (7.4-10.4); Nucleated Red Blood Cells % 0; Platelet Count 235 10^3/uL (150-450); Red Blood Count 3.55 10^6 /uL (4.18-5.48); Red Cell Distribution Width 16 % (10.5-15); White Blood Count 6.4 10^3/uL (3.5-10.8)
[2018-07-10 07:07] LABS: Calcium 9.4 mg/dL (8.6-10.3); Potassium 4.7 mmol/L (3.5-5.0)
[2018-07-10 07:13] LABS: EGFR African American 40.3 (>60); EGFR Non-African American 33.3 (>60)
[2018-07-10] MEDS: Insulin LISPRO* 1 UNITS UNIT SUBCUT SCH ×2 (08:39→13:03)
[2018-07-10] MEDS: Furosemide IV* 10 MG/ML VIAL (40 MG) IV SCH (08:40)
[2018-07-10] MEDS: Aspirin EC TAB* 81 MG TAB.EC PO SCH (09:44)
[2018-07-10] MEDS: Metoprolol Tartrate TAB* 50 mg PO SCH (09:44)
[2018-07-10] MEDS: Cholecalciferol TAB* 1000 UNITS PO SCH (09:44)
[2018-07-10] MEDS: amLODIPine TAB* 5 MG PO SCH (09:45)
[2018-07-10 12:54] VITALS: BP 112/34
== END 2018-07-10 13:00 | disposition home or self-care (01) | DRG 291 ==
LOC: ED 09:14 → MEDTELE 13:34 → ED 14:20 → MEDTELE 16:45 → OBSVTOIN 07-08 13:09
PROVIDERS: ADMIT Internal Medicine; ATTEND Internal Medicine
DX: I13.0 Hypertensive heart and chronic kidney disease with heart failure and stage 1 through stage 4 chronic kidney disease, or unspecified chronic kidney disease (principal); I50.43 Acute on chronic combined systolic (congestive) and diastolic (congestive) heart failure; E03.9 Hypothyroidism, unspecified; I25.10 Atherosclerotic heart disease of native coronary artery without angina pectoris; E78.00 Pure hypercholesterolemia, unspecified; E78.5 Hyperlipidemia, unspecified; H91.90 Unspecified hearing loss, unspecified ear; I25.9 Chronic ischemic heart disease, unspecified; I48.91 Unspecified atrial fibrillation; E11.22 Type 2 diabetes mellitus with diabetic chronic kidney disease; N18.3 Chronic kidney disease, stage 3 (moderate); Z97.4 Presence of external hearing-aid; Z95.1 Presence of aortocoronary bypass graft; Z95.3 Presence of xenogenic heart valve; Z83.3 Family history of diabetes mellitus; Z80.0 Family history of malignant neoplasm of digestive organs; Z72.89 Other problems related to lifestyle
CPT/HCPCS: 36415; 71045; 71046; 80048; 80053; 81003; 83605; 83735; 83880; 84484; 85025; 85610; 85730; 93005; 99284; A9270-GY; G8978-GP-CI; G8979-GP-CI; G8980-GP-CI; G8987-GO-CI; G8988-GO-CI; J1644; J1940

== ENCOUNTER 2018-08-06 22:21 | Observation (INO) | payer MEDICARE ==
--- NOTE | 2018-08-06 22:44 | ED ---
Syncope/Near Syncope - HPI Summary HPI Summary: This patient is a 77 year old M brought in by ambulance to [facility] accompanied by sister due to a syncopal event prior to arrival. Sister states she heard the fall and found the patient face down on the ground unresponsive for a few minutes. He sustained an abrasion to the forehead. After, he vomited once with some dry heaving. She did not notice urine or stool. Patient does not recall the event. Sister states he has been acting normal and has made no complaints today. PMHx of dementia. Sister states current confusion is his baseline. - History Of Current Complaint Chief Complaint: EDSyncope Time Seen by Provider: 08/06/18 22:29 Hx Obtained From: Family/Shuttler Car Hx From Patient Unobtainable Due To: Dementia Onset/Duration: Sudden Onset, Lasting Minutes Timing: Minutes Context: Witnessed, Loss Of Consciousness Activity At Onset: Exertion Associated Head Trauma: Yes Alleviating Factor(s): Spontaneous Resolution Associated Signs And Symptoms: Vomiting - Allergies/Home Medications Allergies/Adverse Reactions: Allergies Allergy/AdvReac Type Severity Reaction Status Date / Time No Known Allergies Allergy Verified 07/06/18 09:24 PMH/Surg Hx/FS Hx/Imm Hx Endocrine/Hematology History: Reports: Hx Diabetes, Hx Thyroid Disease - HYPOTHYROIDISM, Hx Anemia Denies: Hx Systemic Lupus Erythematosus Cardiovascular History: Reports: Hx Coronary Artery Disease, Hx Hypercholesterolemia - HLD, Hx Hypertension, Hx Valvular Heart Disease - SEVERE AORTIC REGURITATION, HX MECHANICAL (NOW BOVINE) VALVE, Other Cardiovascular Problems/Disorders - borderline diabetic, on metformin only Denies: Hx Congestive Heart Failure, Hx Pacemaker/ICD Respiratory History: Denies: Hx Asthma Musculoskeletal History: Denies: Hx Rheumatoid Arthritis Sensory History: Reports: Hx Hearing Aid - DOES NOT WEAR, Hx Hearing Problem Denies: Hx Contacts or Glasses Opthamlomology History: Denies: Hx Contacts or Glasses Neurological History: Reports: Other Neuro Impairments/Disorders - FORGETFULNESS Psychiatric History: Denies: Hx Panic Disorder - Surgical History Surgery Procedure, Year, and Place: CAROTID ARTERY (NO STENTS) SEPTEMBER 2014;. CABG 2002 WITH MECHANICAL AORTIC VALVE ;. MECHANICAL VALVE REPLACEMENT AT [facility] 10/2012 TO BOVINE VALVE; ( CURRENTLY ONLY HAS A BOVINE VALVE ) NO HEART STENTS CAN FIND THIS SURGERY INFORMATION IN SCANNED IN REPORTS; Hx Anesthesia Reactions: No Infectious Disease History: No Infectious Disease History: Denies: Traveled Outside the [place] in Last 30 Days - Family History Known Family History: Negative: Blood Disorder - Social History Alcohol Use: None Substance Use Type: Reports: None Smoking Status (MU): Never Smoked Tobacco Review of Systems Positive: Vomiting Positive: no symptoms reported Positive: Other - abrasion to forehead Positive: Syncope All Other Systems Reviewed And Are Negative: Yes Physical Exam - Summary Physical Exam Summary: VITAL SIGNS: Reviewed. GENERAL: Patient is a well-developed and nourished male who is lying comfortable in the stretcher. Patient is not in any acute respiratory distress. HEAD AND FACE: No signs of trauma. No ecchymosis, hematomas or skull depressions. No sinus tenderness. EYES: PERRLA, EOMI x 2, No injected conjunctiva, no nystagmus. EARS: Hearing grossly intact. Ear canals and tympanic membranes are within normal limits. MOUTH: Oropharynx within normal limits. NECK: Supple, trachea is midline, no adenopathy, no JVD, no carotid bruit, no c- spine tenderness, neck with full ROM CHEST: Symmetric, no tenderness at palpation LUNGS: Clear to auscultation bilaterally. No wheezing or crackles. CVS: Regular rate and rhythm, S1 and S2 present, no murmurs or gallops appreciated. ABDOMEN: Soft, non-tender. No signs of distention. No rebound no guarding, and no masses palpated. Bowel sounds are normal. EXTREMITIES: FROM in all major joints, no edema, no cyanosis or clubbing. NEURO: Alert and oriented x 2 (name and place). No acute neurological deficits. Speech is normal and follows commands. SKIN: Dry and warm, minor abrasion to the forehead Triage Information Reviewed: Yes Vital Signs On Initial Exam: Initial Vitals Temp Pulse Resp BP Pulse Ox 97.9 F 69 18 142/74 94 08/06/18 22:27 08/06/18 22:27 08/06/18 22:27 08/06/18 22:27 08/06/18 22:27 Vital Signs Reviewed: Yes - Charlee Coma Scale Best Eye Response: 4 - Spontaneous Best Motor Response: 6 - Obeys Commands Best Verbal Response: 5 - Oriented Coma Scale Total: 15 Diagnostics - Vital Signs Vital Signs Temp Pulse Resp BP Pulse Ox 08/06/18 22:27 97.9 F 69 18 142/74 94 - Laboratory Result Diagrams: 08/06/18 22:58 08/06/18 22:58 Lab Statement: Any lab studies that have been ordered have been reviewed, and results considered in the medical decision making process. - Radiology CXR Radiology Interpretation Completed By: Radiologist Summary of Radiographic Findings: Bilateral venous congestion. Pending offical report. - CT Brain CT CT Interpretation Completed By: Radiologist Summary of CT Findings: 1. No acute intracranial hemorrhage. No intracranial mass or obstructive. hydrocephalus. 2. Areas of decreased density involving the subcortical and periventricular. white matter consistent with a microvascular leukoencephalopathy. This is most. apparent involving the left occipital and parietal lobe. Suggest obtaining old. films for comparison. If no old films are available. Consider MRI study with. contrast. ED Physician has reviewed this report. - EKG 2230 Cardiac Rate: NL - 67 BPM EKG Rhythm: Sinus Rhythm Summary of EKG Findings: T wave inversion in lead 1 and aVL Course/Dx Course Of Treatment: 77 year old M brought in by ambulance to [facility] accompanied by sister due to a syncopal event prior to arrival. Sister states she heard the fall and found the patient face down on the ground unresponsive for a few minutes. Bloodwork reveals troponin of 0.10. CXR reveals bilateral venous congestion. EKG reveals NSR at 70 BPM with T wave inversion in lead [address] reveals, "1. No acute intracranial hemorrhage. No intracranial mass or obstructive. hydrocephalus. 2. Areas of decreased density involving the subcortical and periventricular. white matter consistent with a microvascular leukoencephalopathy. This is most. apparent involving the left occipital and parietal lobe. Suggest obtaining old. films for comparison. If no old films are available. Consider MRI study with. contrast. ". At 23:30, Case discussed with Dr. Walker, hospitalist, who agrees to admission. Results and plan discussed with patient and family. - Diagnoses Provider Diagnoses: Syncope Discharge - Sign-Out/Discharge Documenting (check all that apply): Patient Departure - admit - Discharge Plan Condition: Stable Disposition: ADMITTED TO [facility] Referrals: Amos Reed MD [Primary Care Provider] - - Attestation Statements Document Initiated by Scribe: Yes Documenting Scribe: Sera Coombs Provider For Whom Scribe is Documenting (Include Credential): Montse Bañuelos MD Scribe Attestation: Sera Mansfield, scribed for Montse Bañuelos MD on 08/07/18 at 0000. Status of Scribe Document: Ready
[2018-08-06 23:06] LABS: ABS Basophils 0.1 10^3/ul (0-0.2); ABS Eosinophils 0.1 10^3/ul (0-0.6); ABS Lymphocytes 0.9 10^3/ul (1.0-4.8); ABS Monocytes 0.7 10^3/ul (0-0.8); ABS Neutrophils 5.1 10^3/ul (1.5-7.7); Eosinophil % 1.3 %; Hematocrit 33 % (42-52); Hemoglobin 10.7 g/dL (14.0-18.0); Lymphocyte % 13.3 %; Mean Corpuscular HGB Conc 33 g/dL (31-36); Mean Corpuscular Hemoglobin 32 pg (27-31); Mean Corpuscular Volume 96 fL (80-94); Mean Platelet Volume 7.6 fL (7.4-10.4); Nucleated Red Blood Cells % 0.1; Platelet Count 153 10^3/uL (150-450); Red Cell Distribution Width 16 % (10.5-15); White Blood Count 6.9 10^3/uL (3.5-10.8)
[2018-08-06 23:18] LABS: Activated Partial Thrombo Time 28.1 seconds (26.0-36.3); INR 1.29 (0.82-1.09)
[2018-08-06 23:25] LABS: ALT 26 U/L (7-52); AST 22 U/L (13-39); Albumin 3.6 g/dL (3.2-5.2); Albumin/Globulin Ratio 1.1 (1-3); Alkaline Phosphatase 185 U/L (34-104); Anion Gap 10 mmol/L (2-11); BUN/Creatinine Ratio 24.6 (8-20); Blood Urea Nitrogen 47 mg/dL (6-24); CO2 Carbon Dioxide 22 mmol/L (22-32); Calcium 8.9 mg/dL (8.6-10.3); Chloride 104 mmol/L (101-111); EGFR African American 41.5 (>60); EGFR Non-African American 34.3 (>60); Globulin 3.2 g/dL (2-4); Glucose 177 mg/dL (70-100); Potassium 4.8 mmol/L (3.5-5.0); Sodium 136 mmol/L (135-145); Total Protein 6.8 g/dL (6.4-8.9)
--- OUTSIDE RECORDS SUMMARY | 2018-08-06 23:34 | XMS REPORT | Continuity of Care Document ---
:1940 External Reference #:[id number] Author Name Tammy Rodríguez Care Team Providers Name Role Phone Amos Reed MD Primary Care Physician Unavailable Payers Date Identification Numbers Payment Provider Subscriber Effective: 2012 Policy Number: [id number] Medicare Blue Ppo [employer] Number: [id number] [address] [address] PayID: [id number] [place] [address] Advance Directives Description No Information Available Problems Active Problems Provider Date Aortic valve disorder Marcos Palencia M.D. Onset: 12/15/2012 Chronic ischemic heart disease Marcos Palencia M.D. Onset: 12/15/2012 Arteriosclerosis of autologous vein coronary Marcos Palencia M.D. Onset: artery bypass graft Carotid artery occlusion Rose Ho M.D. Onset: 10/02/2014 Heart valve replacement Rose Ho M.D. Onset: 10/02/2014 Hyperlipidemia Rose Ho M.D. Onset: 10/02/2014 Benign essential hypertension Rose Ho M.D. Onset: 10/02/2014 Lumbar spondylosis Gus Fan M.D. 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 [place] Tobacco Use Start: Unknown Never Smoked Cigarettes Smoking Status Reviewed: 07/26/18 Never Smoked Cigarettes ETOH Use Occasionally consumes beer Tobacco Use Start: Unknown Patient has never smoked Recreational Drug Use Denies Drug Use Exercise Type/Frequency Exercises regularly Allergies, Adverse Reactions, Alerts Description No Known Drug Allergies Medications Active Medications SIG Qnty Indications Ordering Date Provider Lisinopril 2 by mouth every Marcos Herrera 07/26/2018 20mg Tablets day [place] Pal[place] Furosemide 2 by mouth every 90tabs Marcos Herrera 06/19/2018 20mg Tablets day [place] Pal[place] Lipitor one tab by mouth 90tabs Marcos D. 11/07/2017 20mg Tablets every night at [facility] Palencia bedtime Aspir-Low 1 po qd 30tabs Unknown 81mg Tablets DR D3-1000 1 po qd Unknown 1000Unit Capsules Levothyroxine Sodium 1 po qd Unknown 75mcg Tablets Metoprolol Tartrate 1 po bid 180tabs Unknown 50mg Tablets Vitamin B12 shot every 3 Unknown mths History Medications Lisinopril 1 by mouth every 90tabs Marcos Palencia, 12/15/2012 - 10mg Tablets day M.DLindsay 07/26/2018 Simvastatin 1 by mouth every 90tabs Marcos Palencia, 12/15/2012 - 80mg day Rose.DLindsay 11/07/2017 Tablets Digoxin 1 tablet po qday 90units Unknown - 0.25mg/ml 12/15/2012 Solution Amlodipine Besylate 1 po qd 90tabs Unknown - 5mg 07/25/2018 Tablets Metformin HCL 1 po bid 180tabs Unknown - 1000mg 06/20/2018 Tablets Hydrocodone 1-2 tablets as 100tabs Unknown - 10-750mg needed 04/02/2015 Tablets Glimepiride 1 tab every day Unknown - 1mg Tablets before meals 07/25/2018 Medications Administered in Office Medication SIG Qnty Indications Ordering Provider Date Depomedrol 80MG Kaelyn Zhou M.D. 05/23/2013 Injection Immunizations Description No Information Available Vital Signs Date Vital Result Comment 07/26/2018 7:48am Height 62 inches 5'2" Weight 170.00 lb w/o shoes Heart Rate 67 /min BP Systolic 112 mmHg Rue reg cuff BP Diastolic 58 mmHg Rue reg cuff BP Systolic Sitting 110 mmHg Rue reg cuff BP Diastolic Sitting 60 mmHg Rue reg cuff Respiratory Rate 16 /min BMI (Body Mass Index) 31.1 kg/m2 Ejection Fraction 35-40% 07/25/18 echo 06/20/2018 1:40pm Height 62 inches 5'2" Weight 177.25 lb with shoes Heart Rate 64 /min BP Systolic Sitting 105 mmHg Lue, regular cuff BP Diastolic Sitting 68 mmHg Lue, regular cuff Respiratory Rate 20 /min BMI (Body Mass Index) 32.4 kg/m2 01/11/2018 3:41pm Height 62 inches 5'2" Weight 189.00 lb Heart Rate 66 /min BP Systolic Sitting 126 mmHg lue lg cuff BP Diastolic Sitting 60 mmHg lue lg cuff BP Systolic Standing 136 mmHg BP Diastolic Standing 70 mmHg Respiratory Rate 18 /min BMI (Body Mass Index) 34.6 kg/m2 Ejection Fraction 55-60% 08/19/2016 03/09/2017 7:47am Height 62 inches 5'2" Weight 189.00 lb No shoes Heart Rate 64 /min BP Systolic Sitting 130 mmHg Rue reg cuff BP Diastolic Sitting 64 mmHg Rue reg cuff BP Systolic Standing 128 mmHg Rue reg cuff BP Diastolic Standing 62 mmHg Rue reg cuff Respiratory Rate 18 /min BMI (Body Mass Index) 34.6 kg/m2 Ejection Fraction 55-60% 08/19/2016-echo 01/03/2017 9:43am Height 62 inches 5'2" Weight 194.00 lb BP Systolic 122 mmHg BP Diastolic 66 mmHg Respiratory Rate 20 /min Body Temperature 97.6 F Pain Level 0 BMI (Body Mass Index) 35.5 kg/m2 08/13/2016 9:38am Height 62 inches 5'2" Weight 194.00 lb with shoes Heart Rate 62 /min BP Systolic Sitting 128 mmHg Rue reg cuff BP Diastolic Sitting 72 mmHg Rue reg cuff BP Systolic Standing 122 mmHg Rue reg cuff BP Diastolic Standing 70 mmHg Rue reg cuff Respiratory Rate 17 /min BMI (Body Mass Index) 35.5 kg/m2 Ejection Fraction 61% 01/26/2013-echo 08/01/2015 8:09am Height 62 inches 5'2" Weight 187.00 lb with shoes Heart Rate 60 /min regular BP Systolic Sitting 142 mmHg right arm reg cuff BP Diastolic Sitting 76 mmHg right arm reg cuff BP Systolic Standing 144 mmHg right arm reg cuff BP Diastolic Standing 78 mmHg right arm reg cuff Respiratory Rate 18 /min BMI (Body Mass Index) 34.2 kg/m2 01/22/2015 1:01pm Height 62 inches 5'2" Weight 184.00 lb Heart Rate 64 /min BP Systolic Sitting 160 mmHg BP Diastolic Sitting 90 mmHg Pain Level 5 back BMI (Body Mass Index) 33.7 kg/m2 10/02/2014 2:26pm Height 62 inches 5'2" Weight 190.00 lb with shoes Heart Rate 68 /min BP Systolic Sitting 118 mmHg Ra lg cuff BP Diastolic Sitting 60 mmHg Ra lg cuff BP Systolic Standing 128 mmHg Ra lg cuff BP Diastolic Standing 60 mmHg Ra lg cuff Respiratory Rate 16 /min BMI (Body Mass Index) 34.7 kg/m2 Ejection Fraction 61 % date 01/26/13 ECHO 08/09/2014 9:19am Height 62 inches 5'2" Weight 186.00 lb w/o shoes Heart Rate 64 /min reg BP Systolic Sitting 114 mmHg LA, reg cuff BP Diastolic Sitting 60 mmHg LA, reg cuff BP Systolic Standing 116 mmHg LA BP Diastolic Standing 70 mmHg LA Respiratory Rate 18 /min BMI (Body Mass Index) 34.0 kg/m2 Ejection Fraction 61% 01/26/2013 08/24/2013 3:03pm Height 62 inches 5'2" Weight 192.00 lb without shoes Heart Rate 68 /min BP Systolic Sitting 142 mmHg LA reg cuff BP Diastolic Sitting 90 mmHg LA reg cuff BP Systolic Standing 136 mmHg LA reg cuff BP Diastolic Standing 82 mmHg LA reg cuff Respiratory Rate 16 /min BMI (Body Mass Index) 35.1 kg/m2 06/13/2013 1:04pm Height 62 inches 5'2" Heart Rate 65 /min BP Systolic 139 mmHg BP Diastolic 71 mmHg 05/23/2013 1:23pm Height 62 inches 5'2" Weight 183.00 lb Heart Rate 74 /min BMI (Body Mass Index) 33.5 kg/m2 01/31/2013 9:02am Height 62.5 inches 5'2.50" Weight 181.00 lb no change Heart Rate 72 /min BP Systolic Sitting 112 mmHg LA reg cuff BP Diastolic Sitting 62 mmHg LA reg cuff BP Systolic Standing 114 mmHg LA BP Diastolic Standing 68 mmHg LA Respiratory Rate 16 /min BMI (Body Mass Index) 32.6 kg/m2 12/15/2012 11:16am Height 63.5 inches 5'3.50" Weight 181.00 lb Heart Rate 82 /min BP Systolic Sitting 128 mmHg LA reg cuff BP Diastolic Sitting 64 mmHg LA reg cuff BP Systolic Standing 120 mmHg LA BP Diastolic Standing 58 mmHg LA Respiratory Rate 16 /min BMI (Body Mass Index) 31.6 kg/m2 Results Test Date Facility Test Result H/L Range Note Basic Metabolic 06/20/2018 [facility] Sodium 137 mmol/L N 135- [address] [place] [address] [phone] Potassium 4.7 mmol/L N 3.5-5.0 Chloride 105 mmol/L N 101-111 Co2 Carbon Dioxide 26 mmol/L N 22-32 Anion Gap 6 mmol/L N 2-11 Glucose 125 mg/dL High 70-100 Blood Urea Nitrogen 35 mg/dL High 6-24 Creatinine 1.75 mg/dL High 0.67-1.17 BUN/Creatinine Ratio 20.0 N 8-20 Calcium 8.8 mg/dL N 8.6-10.3 Egfr Non- 38.0 >60 Egfr 46.0 >60 1 Basic Metabolic 12/25/2012 [facility] Sodium 132 mmol/L Low 133-145 Panel [address] [place] [address] [phone] Potassium 4.6 mmol/L 3.5-5.0 Chloride 100 mmol/L Low 101-111 Co2 Carbon Dioxide 24.0 mmol/L 22-32 Anion Gap 8.0 mmol/L 2-11 Glucose 212 mg/dL High 70-100 Blood Urea Nitrogen 14 mg/dL 6-24 Creatinine 1.10 mg/dL 0.50-1.40 BUN/Creatinine Ratio 12.7 8-20 Calcium 9.0 mg/dL 8.1-9.9 Egfr Non- 65.8 >60 Egfr 84.6 >60 2 1 Because ethnic data is not always readily available, this report includes an eGFR for both -Americans and non- Americans. The National Kidney Disease Education Program (NKDEP) does not endorse the use of the MDRD equation for patients that are not between the ages of 18 and 70, are , have extremes of body size, muscle mass, or nutritional status, or are non- or non-. According to the National Kidney Foundation, irrespective of diagnosis, the stage of the disease is based on the level of kidney function: Stage Description GFR(mL/min/1.73 m(2)) 1 Kidney damage with normal or decreased GFR 90 2 Kidney damage with mild decrease in GFR 60-89 3 Moderate decrease in GFR 30-59 4 Severe decrease in GFR 15-29 5 Kidney failure <15 (or dialysis) 2 Because ethnic data is not always readily available, this report includes an eGFR for both -Americans and non- Americans. The National Kidney Disease Education Program (NKDEP) does not endorse the use of the MDRD equation for patients that are not between the ages of 18 and 70, are , have extremes of body size, muscle mass, or nutritional status, or are non- or non-. According to the National Kidney Foundation, irrespective of diagnosis, the stage of the disease is based on the level of kidney function: Stage Description GFR(mL/min/1.73 m(2)) 1 Kidney damage with normal or decreased GFR 90 2 Kidney damage with mild decrease in GFR 60-89 3 Moderate decrease in GFR 30-59 4 Severe decrease in GFR 15-29 5 Kidney failure <15 (or dialysis) Procedures Date Code Description Status 07/26/2018 17397 EKG Tracing & Interpretation Completed 06/15/2018 30263 ECHO Transthorasic Realtime 2D W Doppler & Color Flow Hosp Completed 01/11/2018 51147 EKG Tracing & Interpretation Completed 03/09/2017 74733 EKG Tracing & Interpretation Completed 08/19/2016 63053 ECHO Transthoracic, Real-Time 2D With Doppler And Color Completed Flow 08/13/2016 46929 EKG Tracing & Interpretation Completed 08/01/2015 50368 EKG Tracing & Interpretation Completed 10/02/2014 76962 EKG Tracing & Interpretation Completed 08/09/2014 81135 EKG Tracing & Interpretation Completed 05/23/2013 52902 Rad Exam; Knee, Ap&L Completed 05/23/2013 26074 Rad Exam; Knee, Ap&L Completed 05/23/2013 31203 Inject/Drain Joint/Bursa Major W/O US Completed 01/26/2013 45665 ECHO Transthoracic, Real-Time 2D With Doppler And Color Completed Flow 12/15/2012 01161 EKG Tracing & Interpretation Completed 11/18/2012 89641 Left Heart Cath. Incl S/I Coronaries, Angio S/I V Gram If Completed Done 11/18/2012 35936 EKG, Interpretation Only Completed 11/16/2012 33009 EKG Tracing & Interpretation Completed Encounters Type Date Location Provider Dx Diagnosis Office Visit 07/09/2018 [facility] I50.23 Acute on chronic 9:13a taina Khan MD systolic Hospitalists (congestive) heart failure I48.91 Unspecified atrial fibrillation I25.10 Athscl heart disease of [place] coronary artery w/o ang pctrs E11.9 Type 2 diabetes mellitus without complications I10 Essential (primary) hypertension E03.9 Hypothyroidism, unspecified Office Visit 07/08/2018 [facility] I50.23 Acute on chronic 9:13a taina Khan MD systolic Hospitalists (congestive) heart failure I48.91 Unspecified atrial fibrillation I25.10 Athscl heart disease of [place] coronary artery w/o ang pctrs E11.9 Type 2 diabetes mellitus without complications I10 Essential (primary) hypertension E03.9 Hypothyroidism, unspecified N18.3 Chronic kidney disease, stage 3 (moderate) Office Visit 07/06/2018 [facility] Dione I50.31 Acute diastolic 9:12a taina Khan NP (congestive) Hospitalists heart failure J91.8 Pleural effusion in other conditions classified elsewhere E11.9 Type 2 diabetes mellitus without complications I10 Essential (primary) hypertension E78.5 Hyperlipidemia, unspecified I25.10 Athscl heart disease of [place] coronary artery w/o ang pctrs E03.9 Hypothyroidism, unspecified Office Visit 06/20/2018 1:45p [facility] Marcos Herrera I50.33 Acute on chronic Of [employer] [facility] Palencia M.D. 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 diastolic Hospitalists (congestive) heart failure I10 Essential (primary) hypertension E78.5 Hyperlipidemia, unspecified I25.9 Chronic ischemic heart disease, unspecified I25.10 Athscl heart disease of [place] coronary artery w/o ang pctrs E03.9 Hypothyroidism, unspecified E11.9 Type 2 diabetes mellitus without complications E53.9 Vitamin B deficiency, unspecified Office Visit 06/16/2018 [facility] Brinda Graciela, I50.23 Acute on chronic 10:22a Assoc,pc [employer] systolic Hospitalists (congestive) heart failure I48.91 Unspecified atrial fibrillation I10 Essential (primary) hypertension I25.10 Athscl heart disease of [place] coronary artery w/o ang pctrs I25.9 Chronic ischemic heart disease, unspecified E11.9 Type 2 diabetes mellitus without complications N18.3 Chronic kidney disease, stage 3 (moderate) D51.9 Vitamin B12 deficiency anemia, unspecified E03.9 Hypothyroidism, unspecified Office Visit 06/15/2018 [facility] Dione I50.21 Acute systolic 10:21a Assoc,taina Woodard [employer] (congestive) Hospitalists heart failure E11.9 Type 2 diabetes mellitus without complications I10 Essential (primary) hypertension E78.5 Hyperlipidemia, unspecified I25.10 Athscl heart disease of [place] coronary artery w/o ang pctrs E03.9 Hypothyroidism, unspecified E87.5 Hyperkalemia R79.1 Abnormal coagulation profile Office Visit 01/11/2018 4:00p [facility] Shyam Herrera I35.0 Nonrheumatic Of Qamar Palencia M.D. 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 CABG w/o angina [employer] pectoris I35.0 Nonrheumatic aortic (valve) stenosis Z95.2 Presence of prosthetic heart valve Office Visit 01/03/2017 9:30a Orthopedic Jose Walters, M76.52 Patellar Services Of [facility] tendinitis, left C.M.A. knee M25.562 Pain in left knee Office Visit 08/13/2016 Mary Herrera I25.810 Atherosclerosis of 10:00a Cardiology Ana Palencia M.D. CABG w/o angina [employer] pectoris Z95.2 Presence of prosthetic heart valve I35.0 Nonrheumatic aortic (valve) stenosis I73.9 Peripheral vascular disease, unspecified Office Visit 08/01/2015 Mary Herrera I25.810 Atherosclerosis of 8:15a Cardiology Ana Palencia M.D. CABG w/o angina [employer] pectoris Z95.2 Presence of prosthetic heart valve I35.0 Nonrheumatic aortic (valve) stenosis Office Visit 01/22/2015 Neurosurgery Gus Dorantes M47.816 Spondylosis w/o 1:00p Services Of Qamar Fan M.D. myelopathy or radiculopathy, lumbar region Office Visit 10/02/2014 [facility] Rose Ho, 414.02 Coronary 2:45p Of Qamar Chong Atherosclerosis Autologous Vein Bypass Graft 424.1 Aortic Valve Disorder 433.10 Occlusion & Stenosis Carotid Artery W/O Cerebral Infarction V43.3 Heart Valve Replaced By Other Means 250.00 Diabetes Mellitus W/O Compl Type II Or Unspec Controlled 272.4 Hyperlipidemia Other Unspec 401.1 Hypertension Benign V72.81 Examination Preoperative Cardiovascular Office Visit 08/09/2014 Mary Herrera 414.02 Coronary 9:30a Cardiology Ana Palencia M.D. Atherosclerosis [employer] Autologous Vein Bypass Graft 424.1 Aortic Valve Disorder Office Visit 08/24/2013 Mary Herrera 414.01 Coronary 3:00p Cardiology Ana Palencia M.D. Atherosclerosis [facility] Jamul 414.02 Coronary Atherosclerosis Autologous Vein Bypass Graft 424.1 Aortic Valve Disorder Office Visit 06/13/2013 Orthopedic Kaelyn Zhou, 715.96 Osteoarthrosis 12:45p Services Of Rao Chong Unspec Genlzd Or Localized Lower Leg Office Visit 05/23/2013 Orthopedic Kaelyn Zhou 715.96 Osteoarthrosis 1:00p Services Of Rao Chong Unspec Genlzd Or Localized Lower Leg Office Visit 03/26/2013 [facility] 008.8 Enteritis Due To 9:35a Assoc,taina Lombardo, N.P. Other Organism Not Hospitalists Elsewhere Class 250.00 Diabetes Mellitus W/O Compl Type II Or Unspec Controlled 276.51 Dehydration 414.00 Coronary Atherosclerosis Unspec Type Vessel Jamul/Graft Office Visit 01/31/2013 9:00a [facility] Shyam Herrera 424.1 Aortic Valve Of Qamar Palencia M.D. Disorder 414.9 Ischemic Heart Disease Chronic Unspec 414.02 Coronary Atherosclerosis Autologous Vein Bypass Graft Office Visit 12/15/2012 11:15a [facility] Marcos Herrera 424.1 Aortic Valve Of Qamar Palencia M.D. Disorder 414.9 Ischemic Heart Disease Chronic Unspec 414.02 Coronary Atherosclerosis Autologous Vein Bypass Graft Office Visit 11/18/2012 1:00p [facility] Magalie 786.05 Shortness Of Assoc,taina Urias D.O. Breath Hospitalists 518.4 Edema Lung Acute Unspec 786.51 Pain Precordial v43.3 Heart Valve Replaced By Other Means Office Visit 11/18/2012 9:43a [facility] Marcos Herrera 785.51 Shock Cardiogenic Of Qamar Palencia M.D. 424.1 Aortic Valve Disorder 428.0 Congestive Heart Failure Unspecified 414.9 Ischemic Heart Disease Chronic Unspec Office Visit 11/16/2012 3:45p [facility] Marcos Herrera 424.1 Aortic Valve Of Qamar Palencia M.D. Disorder 786.50 Pain Chest Unspec 414.9 Ischemic Heart Disease Chronic Unspec 785.9 Cardiovascular Symptoms Other Plan of Treatment Future Appointment(s):02/09/2019 9:45 am - Marcos Palencia M.D. at [facility]01/26/2019 9:00 am - Traveling ECHO 2 at [facility]07/26/2018 - Marcos Palencia M.D.I25.10 Atherosclerotic heart disease of [place] coronary artery withNew Orders:Echocardiogram, Ordered: 07/26/18Follow up :6 [id number] Essential (primary) [id number] Nonrheumatic aortic (valve) ejoxzgwrE94.2 Presence of prosthetic heart izuaiI11.9 Chronic ischemic heart disease, unspecified
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
[2018-08-06 23:40] LABS: TSH (Thyroid Stimulating Horm) 3.83 mcIU/mL (0.34-5.60)
[2018-08-07] MEDS ORDERED: Furosemide IV* 10 MG/ML VIAL (40 MG) IV ONE (00:39)
--- NOTE | 2018-08-07 03:18 | HP ---
HISTORY AND PHYSICAL: DATE OF ADMISSION: 08/07/18 ADMITTING PROVIDER: Edmund Walker MD. PRIMARY CARE PROVIDER: Dr. Reed. OUTPATIENT STOCKING INSPECTOR: Dr. Palencia. CHIEF COMPLAINT: Unwitnessed syncope and loss of consciousness for between 3 and 4 minutes. HISTORY OF PRESENT ILLNESS: Grupo Walker is a 77-year-old male with a past medical history of systolic CHF, hypertension, hyperlipidemia, prosthetic aortic valve replacement, CAD; status post CABG, atrial fibrillation(not on anticoagulation), hypothyroidism, ocy-nakgyuf-gvvhpnpbn diabetes mellitus, vitamin B12 deficiency, anemia. He is a poor historian given significant memory loss and dementia, but his sister whom he lives with, Kassidy Mina, is at bedside. She heard a thump around 9:30 p.m. on 08/06/18. Grupo was found in the kitchen on the ground with some blood on the floor near his forehead, lying face down; he was nonresponsive for 3 to 4 minutes. EMS was called. 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 His BNP is greater than 1300. Troponin is 0.10. He is in normal sinus rhythm with no ischemic changes on EKG. Denies any chest pain. He was referred to hospitalist service for admission for syncope and prolonged loss of consciousness. Of note, he often will not take his medications unless his sister strictly enforces it and given that it was Mother's Day, she just left them on the table while going out to celebrate. He did not take his medications today and, in fact, he has been off of his Lasix for the last 3 days as apparently his prescription ran out and they have not been able to get a refill ordered. Grupo is without complaints. Currently, denies any shortness of breath or headache (though did ask the pillow just to be removed because it was apparently causing a headache per his sister), abdominal pain, hematochezia, melena, fevers, chills, shortness of breath, or coughing. PAST MEDICAL HISTORY: 1. Systolic CHF with ejection fraction of 35% to 40% with moderate diffuse hypokinesis. This is from echo 06/28/18. 2. Aortic valve replacement (porcine with good function). 3. CAD, status post CABG. 4. Hypertension. 5. Hyperlipidemia. 6. Paroxysmal atrial fibrillation, not on anticoagulation. 7. Sgb-vzomwae-outtvkfrb diabetes mellitus (last A1c actually was 6.1% on 06/16). 8. B12 deficiency. 9. Anemia. 10. Chronic kidney disease stage 3B. PAST SURGICAL HISTORY: 1. Left carotid endarterectomy (unclear date, but sister suspects maybe within about a year ago). 2. Coronary artery bypass graft with mechanical aortic valve replacement 2002 3 Aortic valve replacement revision (this time bovine bioprosthetic October 2012 (transferred to [facility]) after presenting with severe aortic regurg with one mechanical leaflet stuck in position secondary to thrombosis. 4. LASIK eye surgery. MEDICATIONS: Include: 1. Metoprolol 50 mg p.o. b.i.d. 2. Lisinopril 10 mg daily. 3. Levothyroxine 75 mcg p.o. daily. 4. Lasix 40 mg p.o. daily (he missed several days). 5. Vitamin B12 injections every 3 months. 6. Vitamin D 1000 units p.o. daily. 7. Atorvastatin 20 mg p.o. daily. 8. Aspirin 81 mg daily. ALLERGIES: No known drug allergies. SOCIAL HISTORY: No alcohol or drug use. No smoking history. He is retired, single, lives with his 2 sisters. His sister, Kassidy Mina, is his medical surrogate. FAMILY HISTORY: Mother had diabetes. Father with colon cancer. Two sisters with breast cancer. REVIEW OF SYSTEMS: A complete 14-point review of systems is negative, except as per HPI. PHYSICAL EXAMINATION GENERAL APPEARANCE: No acute distress. VITAL SIGNS: Temperature 97.9, pulse 73, respiratory rate 20, satting 93% on room air, blood pressure 134/86. HEENT: Normocephalic. There is a small abrasion on his forehead, not currently bleeding. Moist mucous membranes. NECK: Supple. No bony stepoffs or pain to palpation of his cervical spine. LUNGS: With bilateral rales at the mid lungs down. CARDIOVASCULAR: Regular rate and rhythm. No murmurs, rubs, or gallops. ABDOMEN: Soft, nontender, nondistended. No rebound, no guarding. EXTREMITIES: Warm, well perfused. There is 1+ to 2+ pitting edema in his ankles in the lower extremities. NEURO: Cranial nerves II through XII intact. [employer] strength intact. Hip flexion, dorsiflexion, plantar flexion intact. Sensation intact. Finger-to- nose intact. No pronator drift. DIAGNOSTIC STUDIES/LAB DATA: Labs: White count 6.9, hemoglobin 10.7, hematocrit 33, platelets 153. INR 1.29. Sodium 136, potassium 4.8, chloride 104 , carbon dioxide 22, BUN 47, creatinine 1.91, glucose 177, lactic acid 1.4, magnesium 2.0. Total bili 1.4, AST 22, ALT 26, alk phos 185. Troponin 0.10. BNP greater than 1300. Albumin 3.6. TSH 3.83. Imaging: Chest x-ray, formal read pending but which seems to show cardiogenic pulmonary edema. Also has a similar fluid-like density in his right fissure, no focal infiltrates. CT head demonstrated no acute intracranial hemorrhage, no intracranial mass or obstructive hydrocephalus. There are areas of decreased density involving the subcortical and periventricular white matter consistent with microvascular leukoencephalopathy. This is most apparent involving the left occipital and parietal lobes, suggesting obtaining old films for comparison. If no old films are available, consider MRI study with contrast. EKG showing normal sinus rhythm, left axis deviation, no ST elevations or depressions. There are PACs, poor R-wave progression. ASSESSMENT AND PLAN: Grupo Walker is a 77-year-old male with a past medical history of systolic congestive heart failure with 2 recent admissions for congestive heart failure exacerbation, atrial fibrillation; not on anticoagulation, coronary artery disease; status post coronary artery bypass graft, hypertension, hyperlipidemia, dementia, and gms-gsiccms-ctysnsqka diabetes mellitus. He presents with unobserved syncope (though he is such a limited historian secondary to dementia that it is hard to exclude that he may have had a mechanical fall - though less likely) and 4 minutes of unresponsiveness. He is without focal neurological deficits here, but very forgetful and not oriented as is his baseline. He has been off of his diuretics for a few days and has evidence of acute congestive heart failure, though he is not hypoxic or complaining of shortness of breath. 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 He is being admitted to observation status. He also has elevated troponin of 0.10, but denies any chest pain. We will trend his troponins every 4 hours or until peak to rule out any ischemic causes of his syncope. He has just had an echocardiogram both on 06/16/18 and just 2 weeks ago on 07/25/18 and I am not going to reorder one of those now. He does have reported history of atrial fibrillation and is not on anticoagulation(for unclear reason, Sister did not know). Stroke remains in the differential, though again he has no focal neurological deficits. I am going to get an EEG. There could be consideration for MRI either as an inpatient or as an outpatient to further rule out cerebrovascular accident or other abnormalities. I will order physical therapy. He was not orthostatic on vital sign checks as vasovagal is in the differential or even a mechanical fall followed by concussion. For his congestive heart failure, off of diuretics recently, I am going to give him 40 IV Lasix now and 60 mg p.o. Lasix daily starting in the morning. Strict Is and Os, daily weights. For his hypertension, continue his lisinopril 10, his metoprolol 50 b.i.d. For his hyperlipidemia, continue his Lipitor. We will continue his aspirin, his levothyroxine. He is a full code. He can eat a heart -healthy diet. His medical surrogate is his sister, Kassidy Mina. Starting him on heparin for DVT prophylaxis. [id number]/[facility] #: [id number] [facility]
[2018-08-07 03:28] LABS: Troponin I 0.09 ng/mL (<0.04)
[2018-08-07] MEDS: Levothyroxine TAB* 75 MCG TAB PO SCH (05:20)
[2018-08-07] MEDS: Heparin VIAL(*) 5000 UNITS/ML VIAL (FIVE THOUSAND) SUBCUT SCH ×3 (05:20→20:48)
[2018-08-07 07:29] LABS: Troponin I 0.08 ng/mL (<0.04)
[2018-08-07] MEDS: Furosemide TAB* 20 MG PO SCH (08:54)
[2018-08-07] MEDS: Metoprolol Tartrate TAB* 50 mg PO SCH ×2 (08:54→20:44)
[2018-08-07] MEDS: Aspirin EC TAB* 81 MG TAB.EC PO SCH (08:54)
[2018-08-07] MEDS: Lisinopril TAB* 10 MG PO SCH (08:54)
[2018-08-07] MEDS ORDERED: Atorvastatin* 20 MG TAB PO SCH (18:00)
--- NOTE | 2018-08-07 18:33 | PN ---
Subjective Date of Service: 08/07/18 Interval History: Patient seen and examined. Extremely demented and confused but otherwise pleasant. No complaints. Offers a vague recollection of passing out in the kitchen when prompted about reason for his hospitalization but then drifts while talking. Objective Active Medications: Aspirin (Aspirin Ec Tab*) 81 mg PO DAILY [facility] Last Admin: 08/07/18 08:54 Dose: 81 mg Atorvastatin Calcium (Lipitor*) 20 mg PO QPM [facility] Last Admin: 08/07/18 17:07 Dose: 20 mg Furosemide (Lasix Tab*) 60 mg PO DAILY [facility] Last Admin: 08/07/18 08:54 Dose: 60 mg Heparin Sodium (Porcine) (Heparin Vial(*)) 5,000 units SUBCUT Q8HR [facility] Last Admin: 08/07/18 13:43 Dose: 5,000 units Levothyroxine Sodium (Synthroid Tab*) 75 mcg PO 0600 [facility] Last Admin: 08/07/18 05:20 Dose: 75 mcg Lisinopril (Prinivil Tab*) 10 mg PO DAILY [facility] Last Admin: 08/07/18 08:54 Dose: 10 mg Metoprolol Tartrate (Lopressor Tab*) 50 mg PO BID [facility] Last Admin: 08/07/18 08:54 Dose: 50 mg Vital Signs - 8 hr 08/07/18 15:37 Temperature 98.1 F Pulse Rate 68 Respiratory 18 Rate Blood Pressure 131/55 (mmHg) O2 Sat by Pulse 98 Oximetry Oxygen Devices in Use Now: None Appearance: alert, NAD Eyes: No Scleral Icterus, PERRLA Ears/Nose/Mouth/Throat: NL Teeth, Lips, Gums, Mucous Membranes Moist Neck: NL Appearance and Movements; NL JVP, Trachea Midline Respiratory: Symmetrical Chest Expansion and Respiratory Effort, Clear to Auscultation, - - clear apices, no rhonchi, fine rales bilaterally Cardiovascular: NL Sounds; No Murmurs; No JVD, RRR, No Edema Abdominal: NL Sounds; No Tenderness; No Distention Extremities: No Edema, No Clubbing, Cyanosis Skin: - - areas of bumpy/crusty excoriation on anterior shins with scabbing, dry , no erythema or exudate noted Neurological: - - confused, no agitation Nutrition: Taking PO's Result Diagrams: 08/06/18 22:58 08/06/18 22:58 Assess/Plan/Problems-Billing Assessment: This is a 77 year old male withe history of chronic systolic HF, dementia, DM, HTN, HLP, CAD/CABG, Afib that presented to ED after unwitnessed syncopal episode. - Patient Problems (1) Syncope and collapse Code(s): R55 - SYNCOPE AND COLLAPSE SNOMED Code(s): 010443530 Comment: - Unwitnessed, EEG pending, may have been unwitnessed seizure - Recent ECHO, known HF, CAD and valvular disease - Not orthostatic, was off his meds for a few days and may be contributing - Has hx of afib and not on AC, may be neurovascular event - Continue tele and home cardiac meds (2) Chronic systolic heart failure Code(s): I50.22 - CHRONIC SYSTOLIC (CONGESTIVE) HEART FAILURE SNOMED Code(s): 227797527 Comment: - BNP >1300, was also high at last admission - Not hypoxic, no respiratory distress - continue lasix 60mg Po daily and BB, ASA and YEVGENIY (3) Atrial fibrillation Code(s): I48.91 - UNSPECIFIED ATRIAL FIBRILLATION SNOMED Code(s): 13350546 Comment: - Not on AC? Should be discussed with patient's sister why AC has been declined (was also not on anticoagulation at last 2 admissions per notes with CHADsVaSC=6) - Rate controlled on BB (4) CAD (coronary artery disease) Code(s): I25.10 - ATHSCL HEART DISEASE OF [place]' CORONARY ARTERY W/O ANG PCTRS SNOMED Code(s): 68378687 Comment: - Mild troponinemia, likely demand in setting of syncope and renal disease, no anginal equivalents - Troponins have been elevated on last 2 admissions - Unclear if patient has had a recent stress test, may be worth discussing with patient's sister/POA if she wishes to pursue stress test, last 2 ECHOs with no changes in May and June this year - continue ASA and statin (5) Diabetes mellitus, type 2 Comment: - Restart glimepiride. (6) Hypertension Code(s): I10 - ESSENTIAL (PRIMARY) HYPERTENSION SNOMED Code(s): 65354871 Comment: - Stable on BB and YEVGENIY (7) Stage 3 chronic kidney disease Code(s): N18.3 - CHRONIC KIDNEY DISEASE, STAGE 3 (MODERATE) SNOMED Code(s): 246725834 Comment: - Remains at baseline (8) DVT prophylaxis Code(s): UQW3286 - SNOMED Code(s): 143585106 Comment: Heparin SQ (9) Full code status Code(s): Z78.9 - OTHER SPECIFIED HEALTH STATUS SNOMED Code(s): 792426516 Comment: Status and Disposition: Observation, dispo to home 1-2 days.
--- NOTE | 2018-08-07 23:25 | EEG ---
ELECTROENCEPHALOGRAPHY REPORT: DATE OF STUDY: 08/07/18 - ROOM #450 DATE OF READ: 08/07/18 ORDERED BY: Edmund Walker MD CLINICAL PROBLEM: Mr. Walker is a 77-year-old man who has history of dementia. He had an episode of unresponsiveness that lasted for 3-4 minutes. This EEG was requested to evaluate for epileptiform abnormalities or electrographic seizures. CLINICAL STATE: Waking and drowsy. MEDICATIONS: 1. Aspirin. 2. Lasix. 3. Prinivil. 4. Lopressor. 5. Heparin. 6. Lipitor. 7. Synthroid. REPORT: The background consisted of mixed frequency slowing in the delta and theta range with areas of appropriate organization and clearly defined anterior- posterior voltage and gradients. There was a slow waking background rhythm of 7 Hz which was symmetrical and showed normal reactivity. Anteriorly, there was an expected pattern of lower voltage, irregular mixed faster frequencies. Attenuation of the occipital rhythm accompanied drowsiness. The sleep background was disorganized with persistent theta frequency and brief runs of sleep spindles and vertex waves. These sleep transients showed appropriate morphology and are bilaterally synchronous and symmetrical. Hyperventilation and photic stimulation were not performed. Single electrode EKG showed a normal sinus rhythm with a rate of 75 beats per minute. Throughout the recording, there were no epileptiform discharges or electrographic seizures. CLINICAL IMPRESSION: This is an abnormal waking and drowsy EEG due to slow posterior dominant rhythm. Otherwise, there was retained organization and reactivity. These findings are suggestive of a mild nonspecific encephalopathy , which can be seen in the setting of toxic-metabolic disturbance, cortical atrophy, neurodegenerative disorder, or medication effect. Clinical correlation is recommended. [id number]/[facility] #: [id number] [facility] HOSPITALSharath
[2018-08-08 01:43] LABS: Urine Appearance Clear; Urine Bacteria Absent (Absent); Urine Bilirubin Negative (Negative); Urine Blood 1+ (Negative); Urine Color Yellow; Urine Glucose Negative (Negative); Urine Ketones Negative (Negative); Urine Nitrite Negative (Negative); Urine Protein Negative (Negative); Urine Red Blood Cell Trace(0-2/hpf) (Absent); Urine Specific Gravity 1.012 (1.010-1.030); Urine Squamous Epithelial Cell Present (Absent); Urine Urobilinogen Negative (Negative); Urine White Blood Cell Absent (Absent)
[2018-08-08] MEDS: Levothyroxine TAB* 75 MCG TAB PO SCH (05:23)
[2018-08-08] MEDS: Heparin VIAL(*) 5000 UNITS/ML VIAL (FIVE THOUSAND) SUBCUT SCH (05:23)
[2018-08-08] MEDS: Metoprolol Tartrate TAB* 50 mg PO SCH (08:10)
[2018-08-08] MEDS: Aspirin EC TAB* 81 MG TAB.EC PO SCH (08:11)
[2018-08-08] MEDS: Lisinopril TAB* 10 MG PO SCH (08:11)
[2018-08-08] MEDS: Furosemide TAB* 20 MG PO SCH (08:11)
[2018-08-08] MEDS ORDERED: CMCS:Glimepiride (NF) 2 MG TAB PO SCH (08:30)
--- NOTE | 2018-08-08 10:17 | PN ---
Subjective Date of Service: 08/08/18 Interval History: Mr. Walker has dementia but denies complaint this morning. Physical therapy noted that he ambulated independently. His sister notes that he was recently started on donepezil though he did not take it Tuesday morning. Objective Active Medications: Aspirin (Aspirin Ec Tab*) 81 mg PO DAILY MICHELE Atorvastatin Calcium (Lipitor*) 20 mg PO QPM MICHELE Furosemide (Lasix Tab*) 60 mg PO DAILY MICHELE Glimepiride (Glimepiride (Nf)) 1 mg PO DAILY WITH MEAL MICHELE Heparin Sodium (Porcine) (Heparin Vial(*)) 5,000 units SUBCUT Q8HR MICHELE Levothyroxine Sodium (Synthroid Tab*) 75 mcg PO 0600 MICHELE Lisinopril (Prinivil Tab*) 10 mg PO DAILY MICHELE Metoprolol Tartrate (Lopressor Tab*) 50 mg PO BID MICHELE Vital Signs: Temp Pulse Resp BP Pulse Ox 99.1 F 82 17 143/77 97 08/08/18 08:12 08/08/18 08:12 08/08/18 08:12 08/08/18 08:12 08/08/18 08:12 Oxygen Devices in Use Now: None Appearance: Male sitting up on edge of bed in NAD, sister at bedside Eyes: No Scleral Icterus Ears/Nose/Mouth/Throat: Mucous Membranes Moist Neck: Trachea Midline Respiratory: Symmetrical Chest Expansion and Respiratory Effort, Clear to Auscultation Cardiovascular: NL Sounds; No Murmurs; No JVD, No Edema Abdominal: NL Sounds; No Tenderness; No Distention Extremities: No Edema Skin: No Rash or Ulcers Neurological: NL Muscle Strength and Tone, - - Alert, [place] B[place], oriented to self Nutrition: Taking PO's Result Diagrams: 08/06/18 22:58 08/06/18 22:58 Assess/Plan/Problems-Billing Assessment: Mr. Walker is a 77 year old male withe history of chronic systolic HF, dementia, DM, HTN, HLP, CAD/CABG, Afib that presented to ED after unwitnessed syncopal episode. - Patient Problems (1) Syncope and collapse Comment: - Unwitnessed - Question if could be related to recently starting donepezil, recommended that he discontinue it to his sister. - CT brain and EEG negative. Recent ECHO, known HF, CAD and valvular disease. Not orthostatic, was off his meds for a few days and may be contributing. Has hx of afib and not on AC, telemetry monitoring without worrisome arrhythmia. (2) Chronic systolic heart failure Comment: - BNP >1300, was also high at last admission - Not hypoxic, no respiratory distress - continue lasix 60mg Po daily and BB, ASA and YEVGENIY (3) CAD (coronary artery disease) Comment: - Mild troponinemia, likely demand in setting of syncope and renal disease, no anginal equivalents - Troponins have been elevated on last 2 admissions - Unclear if patient has had a recent stress test, may be worth discussing with patient's sister/POA if she wishes to pursue stress test, last 2 ECHOs with no changes in May and June this year - continue ASA and statin (4) Atrial fibrillation Comment: - Not on AC? Follows with Dr. Palencia routinely - Rate controlled on BB (5) Diabetes mellitus, type 2 Comment: - BG reasonably well controlled. - Continue glimepiride. (6) History of aortic valve replacement Comment: - noted (7) Hypertension Comment: - SBP 110-140s. - Continue furosemide, lisinopril, and metoprolol. (8) Stage 3 chronic kidney disease Comment: - Remains at baseline (9) Hypothyroidism Comment: - Continue levothyroxine at current dose. (10) DVT prophylaxis Comment: - Heparin SQ (11) Full code status Comment: Status and Disposition: Discharge to home.
[2018-08-08 11:33] VITALS: BP 106/46
--- NOTE | 2018-08-08 13:02 | DS ---
CC: Dr. Reed; Dr. Palencia* DISCHARGE SUMMARY: DATE OF ADMISSION: 08/07/18 DATE OF DISCHARGE: 08/08/18 PRIMARY CARE PHYSICIAN: Dr. Reed. ECONOMETRICIAN: Dr. Palencia. ATTENDING PHYSICIAN: Dr. Lan Floyd* (dictated provided by Sharee Burton NP). PRIMARY DIAGNOSIS: Syncope, suspected secondary to donepezil. SECONDARY DIAGNOSES: 1. History of chronic systolic congestive heart failure, stable. 2. Hypertension. 3. Hyperlipidemia. 4. Coronary artery disease. 5. Diabetes, diet controlled. 6. Aortic valve replacement, porcine. 7. Paroxysmal atrial fibrillation, not on anticoagulation. 8. Vitamin B12 deficiency. 9. Anemia. 10. Chronic kidney disease stage 3 B. 11. Dementia. MEDICATIONS: That are unchanged: 1. Metoprolol 50 mg p.o. b.i.d. 2. Lisinopril 10 mg p.o. daily. 3. Levothyroxine 75 mcg p.o. daily. 4. Lasix 40 mg p.o. daily. 5. Vitamin B12 injections q.3 months. 6. Vitamin D of 1000 units p.o. daily. 7. Atorvastatin 20 mg p.o. daily. 8. Aspirin 81 mg p.o. daily (stop donepezil). HOSPITAL COURSE: Mr. Walker is a 77-year-old male with a past medical history of advanced dementia who presented to the hospital on 08/07/18 with concern for an unwitnessed syncopal episode with loss of consciousness for about 3 to 4 minutes. Mr. Walker had an unwitnessed fall at about 9:30 p.m. on 08/06/18. He was found on the floor unresponsive by his sister with whom he lives. He was unresponsive for about 3 to 4 minutes. He was up on his hands and knees and had vomited by the time EMS arrived. By the time he arrived to the emergency room he had no complaints. In the emergency room, Mr. Walker had labs which showed a baseline anemia with hemoglobin 10.7, his creatinine was also at baseline. He had a mild elevation in his troponin to 0.10, but this is not inconsistent with his previous history of troponinemia going back to at least 2018. The patient had an elevated BNP at greater than 1300, but this was consistent with previous as well. He had a CT brain which showed no acute abnormality. He had a chest x-ray that showed CHF; however, Mr. Walker had no shortness of breath or lower extremity edema. He went on to have an EEG which just read generalized slowing consistent with a ___ ___ dementia. In reviewing the situation with his sister, she makes note of the fact that he was recently started on donepezil. He did not take this medication on Tuesday, but did take it on Tuesday. I question whether or not the addition of donepezil could have led to arrhythmia with syncope and have asked that they discontinue this medication as I also think it would be of limited benefit for his dementia. Mr. Walker has been up and ambulating in the hallway with physical therapy with no deficits today. He has had no abnormalities noted on the uppers edge burnisher. I think he is medically stable for discharge back to home, to follow up closely with Dr. Reed and Dr. Palencia. DISPOSITION: Home. DIET: Low-salt, low-carb. ACTIVITY: As tolerated. FOLLOWUP PLANS: 1. Please followup with Dr. Reed within the next week. 2. Please followup with Dr. Palencia within the next month. The patient could consider outpatient telemetry or outpatient cardiac monitoring although given the recent addition of the donepezil I think this is the most likely culprit. TIME SPENT: Approximately 60 minutes was spent on the discharge of this patient , more than half the time spent with the patient at the bedside reviewing the events leading up to and during this hospitalization, performing the physical examination, and reviewing the plan of care. SHAREE BURTON NP [id number]/[facility] #: [id number] MIKE
== END 2018-08-08 11:55 | disposition home or self-care (01) ==
LOC: ED 22:21 → MEDTELE 08-07 00:01
PROVIDERS: ADMIT Internal Medicine; ATTEND Student in an Organized Health Care Education/Training Program
DX: R55 Syncope and collapse (principal); I50.22 Chronic systolic (congestive) heart failure; E78.5 Hyperlipidemia, unspecified; I25.10 Atherosclerotic heart disease of native coronary artery without angina pectoris; Z95.2 Presence of prosthetic heart valve; I48.0 Paroxysmal atrial fibrillation; E53.8 Deficiency of other specified B group vitamins; D64.9 Anemia, unspecified; I12.9 Hypertensive chronic kidney disease with stage 1 through stage 4 chronic kidney disease, or unspecified chronic kidney disease; E11.22 Type 2 diabetes mellitus with diabetic chronic kidney disease; N18.3 Chronic kidney disease, stage 3 (moderate); F03.90 Unspecified dementia, unspecified severity, without behavioral disturbance, psychotic disturbance, mood disturbance, and anxiety; Z79.82 Long term (current) use of aspirin; E78.00 Pure hypercholesterolemia, unspecified; R11.10 Vomiting, unspecified
CPT/HCPCS: 36415; 70450; 71045; 80053; 81003; 81015; 83605; 83735; 83880; 84443; 84484; 85025; 85610; 85730; 93005; 95816; 96372; 96374; 99283; A9270-GY; G0378; G8978-GP-CH; G8979-GP-CH; G8980-GP-CH; J1644; J1940

== ENCOUNTER 2019-04-09 10:55 | Observation (INO) | payer MEDICARE ==
--- NOTE | 2019-04-09 11:08 | ED ---
Palpitations / Dysrhythmia - HPI Summary HPI Summary: This pt is a 78 Y/O M [facility] for syncope that occurred while he was at [facility]. Per EMS the pt was found unable to stand and diaphoretic with HRs in the 50s. EMS states that he had one episode of syncope prior to being placed in the ambulance. En route to [facility] the pt reportedly had an episode of diaphoresis, N/V, and no notable radial pulse. EMS states that the lowest pulse was in the low 40s. Patient denies current complaints. He denies any CP, SOB, and headaches. He has no known aggravating or alleviating factors. He has a PMHx of a pacemaker that was placed for a short time per the pt, aortic valve replacement, CAD, HTN, and DM. Per review of records, patient had a recent labs showing a significantly elevated creatinine from baseline is also elevated BUN. - History of Current Complaint Chief Complaint: EDDysrhythmPalp Time Seen by Provider: 04/09/19 11:01 Hx Obtained From: Patient, EMS Onset/Duration: Sudden Onset, Still Present Timing: Constant Severity Initially: Moderate Severity Currently: Moderate Character: Slow Aggravating: Nothing Alleviating: Nothing Associated Signs & Symptoms: Negative - CP, SOB, and headaches, Syncope, Diaphoresis, Nausea, Vomiting - Allergy/Home Medications Allergies/Adverse Reactions: Allergies Allergy/AdvReac Type Severity Reaction Status Date / Time No Known Allergies Allergy Verified 07/06/18 09:24 Home Medications: Home Medications Cholecalciferol (Vitamin D3) [[place] Vitamin D3] 1,000 unit PO DAILY 04/09/19 [History Confirmed 04/09/19] Lisinopril TAB* [Prinivil TAB*] 40 mg PO DAILY 04/09/19 [History Confirmed 04/09] PMH/Surg Hx/FS Hx/Imm Hx Previously Healthy: Yes Endocrine/Hematology History: Reports: Hx Diabetes, Hx Thyroid Disease - HYPOTHYROIDISM, Hx Anemia Denies: Hx Systemic Lupus Erythematosus Cardiovascular History: Reports: Hx Coronary Artery Disease, Hx Hypercholesterolemia - HLD, Hx Hypertension, Hx Valvular Heart Disease - SEVERE AORTIC REGURITATION, HX MECHANICAL (NOW BOVINE) VALVE, Other Cardiovascular Problems/Disorders - borderline diabetic, on metformin only Denies: Hx Congestive Heart Failure, Hx Pacemaker/ICD Respiratory History: Denies: Hx Asthma Musculoskeletal History: Denies: Hx Rheumatoid Arthritis Sensory History: Reports: Hx Hearing Problem Denies: Hx Contacts or Glasses, Hx Hearing Aid Opthamlomology History: Denies: Hx Contacts or Glasses Neurological History: Reports: Other Neuro Impairments/Disorders - FORGETFULNESS Psychiatric History: Denies: Hx Panic Disorder - Cancer History Hx Chemotherapy: No Hx Radiation Therapy: No - Surgical History Surgical History: Yes Surgery Procedure, Year, and Place: CAROTID ARTERY (NO STENTS) SEPTEMBER 2014;. CABG 2002 WITH MECHANICAL AORTIC VALVE ;. MECHANICAL VALVE REPLACEMENT AT [facility] 10/2012 TO BOVINE VALVE; ( CURRENTLY ONLY HAS A BOVINE VALVE ) NO HEART STENTS CAN FIND THIS SURGERY INFORMATION IN SCANNED IN REPORTS; Hx Anesthesia Reactions: No - Immunization History Immunizations Up to Date: Yes Infectious Disease History: Denies: Traveled Outside the [place] in Last 30 Days - Family History Known Family History: Negative: Blood Disorder - Social History Occupation: Retired Lives: Alone Alcohol Use: None Hx Substance Use: No Substance Use Type: Reports: None Hx Tobacco Use: No Smoking Status (MU): Never Smoked Tobacco Review of Systems Positive: Skin Diaphoresis Positive: Palpitations - bradycardia per EMS. Negative: Chest Pain Negative: Shortness Of Breath Positive: Vomiting, Nausea Negative: Headache All Other Systems Reviewed And Are Negative: Yes Physical Exam - Summary Physical Exam Summary: Constitutional: Well-developed, Well-nourished, Alert. (-) Distressed Skin: Warm, Dry HENT: Normocephalic; Atraumatic Eyes: Conjunctiva normal Neck: Musculoskeletal ROM normal neck. (-) JVD, (-) Stridor, (-) Nuchal rigidity Cardio: Rhythm regular, Bradycardia, Heart sounds normal; Intact distal pulses; Radial pulses are 2+ and symmetric. (-) Murmur Pulmonary/Chest wall: Effort normal. (-) Respiratory distress, (-) Wheezes, (-) Rales. Old chest wall scar Abd: Soft, (-) tenderness, (-) Distension, (-) Guarding, (-) Rebound Musculoskeletal: (-) Edema Lymph: (-) Cervical adenopathy Neuro: Alert, Oriented x3 Psych: Mood and affect Normal Triage Information Reviewed: Yes Vital Signs On Initial Exam: Temp Pulse Resp BP SpO2 FiO2 Vital Signs Reviewed: Yes Procedures - Sedation Patient Received Moderate/Deep Sedation with Procedure: No Diagnostics - Laboratory Result Diagrams: 04/09/19 11:15 04/09/19 11:15 Lab Statement: Any lab studies that have been ordered have been reviewed, and results considered in the medical decision making process. - Radiology CXR Radiology Interpretation Completed By: Radiologist Summary of Radiographic Findings: * Mild prominence of the vascular markings may be ocean import representative of early interstitial pulmonary edema. * Postoperative changes as above. ED physician has reviewed this report. - EKG 1058 Cardiac Rate: Bradycardia - 57 BPM EKG Rhythm: Sinus Bradycardia ST Segment: Other EKG Comparison: No Significant Change - 08/06/2018 Summary of EKG Findings: EKG taken at 1058 shows Sinus Bradycardia at 57 BPM with T wave inversions in I and AVL, when compared to prior EKG taken on 2018 there is no significant changes. Interpreted by Dr. Wiseman, on 2019 1102. Course/Dx - Course Course Of Treatment: 78-year-old male history of diabetes, aortic valve replacement, coronary artery disease, CK 80 presenting with syncopal event. - on arrival to ED, patient bradycardic. Patient denies complaints. GCS 15. - most concerning is patient's cardiac history, concern for cardiac causes syncope. EKG did not show any acute changes. - Labs will for mildly elevated troponin to 0.04, significantly elevated creatinine of 3.8 from baseline of 2. Also elevated BUN in the 130s. Given worsening renal failure, facilities maintenance manager consulted who states patient is appropriate for admission to [facility] and does not emergent dialysis. - patient given 500 cc of normal saline, urine electrolytes sent. - Diagnoses Provider Diagnoses: Syncope, CKD (chronic kidney disease), Hyperkalemia Discharge ED - Sign-Out/Discharge Documenting (check all that apply): Patient Departure - admitted - Discharge Plan Condition: Stable Disposition: ADMITTED TO [facility] Referrals: Amos Reed MD [Primary Care Provider] - - Billing Disposition and Condition Condition: STABLE Disposition: Admitted to [facility] - Attestation Statements Document Initiated by Scribe: Yes Documenting Scribe: Prasanth Huynh Provider For Whom Scribe is Documenting (Include Credential): Ephraim Wiseman MD Scribe Attestation: Prasanth Mansfield, scribed for Ephraim Wiseman MD on 04/09/19 at 1446. Scribe Documentation Reviewed: Yes Provider Attestation: The documentation as recorded by the scribe, Prasanth Amina accurately reflects the service I personally performed and the decisions made by me, Ephraim Wiseman MD Status of Scribe Document: Viewed Consult Consult: Dr. Urias, Hospitalist, requested a consult with Dr. Crisostomo, Nephrology, to discuss the pt's new or possibly worsening renal failure and inquire about emergency dialysis. Dr. Crisostomo, Nephrology, stated that the pt is in no need for emergency dialysis and that he is acceptable for admittance to [facility]. Dr. Urias accepts the pt.
[2019-04-09 11:33] LABS: ABS Basophils 0.1 10^3/ul (0-0.2); ABS Eosinophils 0.1 10^3/ul (0-0.6); ABS Lymphocytes 0.9 10^3/ul (1.0-4.8); ABS Monocytes 0.5 10^3/ul (0-0.8); ABS Neutrophils 5.4 10^3/ul (1.5-7.7); Eosinophil % 1.9 %; Hematocrit 35 % (42-52); Lymphocyte % 12.9 %; Mean Corpuscular HGB Conc 34 g/dL (31-36); Mean Corpuscular Hemoglobin 33 pg (27-31); Mean Corpuscular Volume 98 fL (80-94); Mean Platelet Volume 7.5 fL (7.4-10.4); Platelet Count 147 10^3/uL (150-450); Red Blood Count 3.61 10^6 /uL (4.18-5.48); Red Cell Distribution Width 13 % (10-15); White Blood Count 7.1 10^3/uL (3.5-10.8)
[2019-04-09 11:55] LABS: Troponin I 0.04 ng/mL (<0.03)
[2019-04-09 11:58] LABS: ALT 49 U/L (7-52); AST 34 U/L (13-39); Albumin 3.8 g/dL (3.2-5.2); Albumin/Globulin Ratio 1.2 (1-3); Alkaline Phosphatase 141 U/L (34-104); BUN/Creatinine Ratio 33.6 (8-20); Blood Urea Nitrogen 130 mg/dL (6-24); CO2 Carbon Dioxide 16 mmol/L (22-32); Calcium 8.8 mg/dL (8.6-10.3); Chloride 106 mmol/L (101-111); EGFR African American 18.3 (>60); EGFR Non-African American 15.2 (>60); Globulin 3.1 g/dL (2-4); Glucose 229 mg/dL (70-100); Sodium 133 mmol/L (135-145); Total Protein 6.9 g/dL (6.4-8.9)
[2019-04-09 12:28] LABS: Anion Gap 11 mmol/L (2-11)
[2019-04-09] MEDS ORDERED: NS 0.9% 500 ML* 500 ML IV SCH (13:00)
[2019-04-09 13:38] LABS: Urine Potassium Concentration 25.1 mmol/L
[2019-04-09 13:40] LABS: Urine Appearance Cloudy; Urine Bilirubin Negative (Negative); Urine Blood 1+ (Negative); Urine Color Straw; Urine Glucose 1+(50 mg/dL) (Negative); Urine Ketones Negative (Negative); Urine Nitrite Negative (Negative); Urine Protein Negative (Negative); Urine Specific Gravity 1.009 (1.010-1.030); Urine Urobilinogen Negative (Negative)
[2019-04-09] MEDS ORDERED: Sodium Polystyrene ORAL.SOL* 15 GM/60 ML BTL PO ONE ×2 (14:52→16:57)
--- NOTE | 2019-04-09 15:38 | CONSULT ---
Consult Consult: Consult requested for: DAJUAN. Consult requested by: Dr. Wiseman, ED Performed by Dr. Rose Crisostomo, [facility] Nephrology 04/09/2019 78 yo WM He was admitted with inability to stand, possible Syncope, via EMS, found in DAJUAN. DAJUAN was there on blood test last week, ordered by PCP. DAJUAN is slightly better today! He has dementia and hes hard of hearing, and a poor historian. He claimed good health and hes oblivious to his kidney function results. Denied any current symptoms. He was given 1.5L IVF & UOP 500 cc in few hours. No CP, NVD, SOB at rest, Edema or difficulty urinating! sCr baseline 2.0, stable for years. Last BUN/sCr 130/3.87~04/09/2019, was 143/ 4.65~04/02/2019. CXR in ED~04/09/2019: Mild prominence of the vascular markings, early pulmonary edema. No PLEF. UA in ED negative Protein. Of note, at home he's on Lisinopril 40 mg qd PMH: CKD sCr 2.0 HTN DM Type II on Insulin on OHD Dyslipidemia HFrEF CAD AFib Aortic Valve replacement Hypothyroidism HomeMeds: Medication Instructions Recorded Confirmed Type Levothyroxine TAB* [Synthroid 75 75 mcg PO QAM 11/18/12 04/09/19 History MCG TAB*] Aspirin EC TAB* [Ecotrin EC Low 81 mg PO DAILY 03/26/13 04/09/19 History Dose 81 MG*] Atorvastatin* [Lipitor 20 MG*] 20 mg PO BEDTIME 12/27/17 04/09/19 History Metoprolol Tartrate TAB* 50 mg PO BID 12/27/17 04/09/19 History [Lopressor TAB*] Cholecalciferol (Vitamin D3) 1,000 unit PO DAILY 04/09/19 04/09/19 History [[place] Vitamin D3] Lisinopril TAB* [Prinivil TAB*] 40 mg PO DAILY 04/09/19 04/09/19 History Hospital Meds: Aspirin (Aspirin Ec Tab*) 81 mg PO DAILY MICHELE Atorvastatin Calcium (Lipitor*) 20 mg PO BEDTIME MICHELE Heparin Sodium (Porcine) (Heparin Vial(*)) 5,000 units SUBCUT Q8HR MICHELE Sodium Chloride (Ns 0.9% 500 Ml*) 500 mls @ 175 mls/hr IV PER RATE [facility] Last Admin: 04/09/19 13:01 Dose: 175 mls/hr Levothyroxine Sodium (Synthroid Tab*) 75 mcg PO QAM@0600 [facility] Metoprolol Tartrate (Lopressor Tab*) 25 mg PO BID [facility] Allergies: No Known Allergies Allergy (Verified 07/06/18 09:24) Social History: Denied Alcohol. No IVDA. Retired. Lives with his sisters. Family History: Negative for Dialysis, ESRD or Renal Transplant. Positive for HTN & DM 12-Point Review of System obtained: Constitutional: No fever no weight loss Eyes No blurry vision. No red eye CV: No SOB at rest no chest pain no syncope or edema Respiratory: No SOB at rest no cough no wheezing G.I: no diarrhea no nausea no vomiting no pain no blood per rectum no burning no obstruction symptoms Skin no rash Neurology Syncope. Occasional lightheadedness Endocrine diabetes, no heat or cold intolerance Hem/Lymphatic no bleeding no lymph nodes swelling Immune/Allergy no allergic reactions Musculoskeletal: No arthritis, no swelling Psych no anxiety no depression no hallucination Objective: 10 Point multi system exam: Constitutional Awake and comfortable. Remembered ids HEENT: No Conjunctivitis Abdomen Soft Abdomen No Ascites Heart: NSR, No LE Edema, No murmur Lungs: Clear to auscultation Extremities: No edema, no rash Skin no rash Neurology No deficit. CN intact Hem/Lymph: no palpable lymph nodes Musculoskeletal: No joint swelling Laboratory Reviewed Sodium 133 mmol/L (135-145) L 04/09/19 11:15 Potassium 6.0 mmol/L (3.5-5.0) H 04/09/19 11:15 BUN 130 mg/dL (6-24) H 04/09/19 11:15 Creatinine 3.87 mg/dL (0.67-1.17) H 04/09/19 11:15 Calcium 8.8 mg/dL (8.6-10.3) 04/09/19 11:15 AST 34 U/L (13-39) 04/09/19 11:15 ALT 49 U/L (7-52) 04/09/19 11:15 Assessment and Plan: 1)DAJUAN, recurrent, etiology? 1st, rule out obstruction, advise Renal U/S If kidneys are very small on US, likely advanced CKD rather than DAJUAN on CKD. Monitoring sCr will tell, but the longer sCr remains at the new worse level, the less likely it's going to improve 2)Hyponatremia, water restriction < 2L/d. Family mentioned he drinks large amounts of water and soft drinks daily. Advise limiting dilute fluids including milk and Ice Chips. 3)Hyperkalemia, agree with 1 dose of SPS, try 60 gm, and note that stopping RAAS , Lisinopril will help. 4)Acidosis, start Na-HCO3 1300 mg TID 5)BP slightly high but Ok. Nifedipine ER 30 mg qd or Amlodipine 5 mg qd 6)Fluid overload on CXR, still makes good urine. Agree with holding IVF, may continue Lasix 7)Awaiting UA and Urine Protein to Creatinine. CPK Case discussed with Dr. Urias
--- NOTE | 2019-04-09 16:12 | HP ---
CC: Dr. Reed; Dr. Palencia * HISTORY AND PHYSICAL: DATE OF ADMISSION: 04/09/19 PRIMARY CARE PROVIDER: Dr. Reed. SENIOR TAX ANALYST: Dr. Palencia. CHIEF COMPLAINT: Syncope. HISTORY OF PRESENT ILLNESS: Mr. Walker is a 78-year-old male who had been in his usual state of health on the morning of admission, who ultimately presented to the emergency room after having a syncopal episode. The patient and his sister were out to breakfast at [employer] when the patient's head slumped. She asked him what was wrong and he stated that he felt like he went too fast. She took that to mean he felt dizzy. He had eaten just a little bit prior to that; however, following that episode he did not eat very much. She then noticed that he lost conscious completely. She described him sitting up and shaking. He was out for a couple minutes. He did not vomit at [employer]. Reportedly, the patient vomited in the ambulance. He had a period of time where his heart rate dipped into the 50s. At this point, the patient's sister states that he is at baseline. The patient himself has pretty significant dementia and is unable to provide any history. PAST MEDICAL HISTORY: 1. Stage 3 chronic kidney disease. 2. Chronic systolic congestive heart failure. 3. CAD. 4. Hypothyroidism. 5. Hypertension. 6. Paroxysmal atrial fibrillation. 7. Diet-controlled type 2 diabetes. 8. B12 deficiency. PAST SURGICAL HISTORY: 1. Left carotid endarterectomy. 2. CABG with mechanical aortic valve replacement, status post thrombosed mechanical valve requiring bioprosthetic aortic valve replacement. 3. LASIK eye surgery. MEDICATIONS: 1. Levothyroxine 75 mcg p.o. daily. 2. Lisinopril 40 mg p.o. daily. 3. Lasix 40 mg p.o. daily. 4. Metoprolol tartrate 50 mg p.o. twice daily. 5. Vitamin D3 1000 units p.o. daily. 6. Aspirin 81 mg p.o. daily. 7. Lipitor 20 mg p.o. q.h.s. ALLERGIES: No known drug allergies. FAMILY HISTORY: Mom had diabetes and breast cancer. Dad of rectal cancer. The patient's sister had breast cancer. SOCIAL HISTORY: The patient is a nonsmoker. He may have smoked when he was younger. He does not drink alcohol. 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 He is . He has no children. He never filled out a healthcare proxy form, but his sister would be his surrogate decision maker. REVIEW OF SYSTEMS: The patient denies any fevers or chills. Appetite has been good. He denies any chest pain or shortness of breath. He has no swelling of his legs. No abdominal pain. No constipation or diarrhea. Rest of the review of systems is deferred as the patient is severely hard of hearing and does not seem to completely understand the questions that I am asking him. PHYSICAL EXAMINATION GENERAL: The patient is a well-developed, elderly male seen sitting up in the stretcher, appearing to be in no acute distress. VITAL SIGNS: Blood pressure 117/76, pulse 66, respiratory rate 14, temp 98.7, O2 sat 95% on room air. HEENT: Pupils are equal. Extraocular muscles are intact. There is evidence of prior eye surgery. Oropharynx is clear and moist. The patient wears dentures. NECK: There is no submandibular, cervical, or supraclavicular adenopathy. PULMONARY: Lungs are clear to auscultation bilaterally. CARDIAC: Normal S1, S2. Heart rate is regular. There is no lower extremity edema. ABDOMEN: Bowel sounds are present. Abdomen is soft, nontender, nondistended. MUSCULOSKELETAL: There is no cyanosis or clubbing of the digits. There is full active range of motion of all 4 extremities. NEURO: Cranial nerves II through XII are grossly intact. Sensation is intact to light touch throughout. Strength is 5/5 and symmetric in both upper and lower extremities bilaterally. PSYCH: The patient is alert. He is oriented to self. Affect appears appropriate. SKIN: Visible areas of skin are warm, dry and without rash. He does have numerous excoriations and scabs on his lower legs. DIAGNOSTIC STUDIES/LAB DATA: WBC 7.1, hemoglobin 12.0, hematocrit 35, platelets 147. Sodium 133, potassium , chloride 106, CO2 16, BUN 130, creatinine 3.87, glucose 229, calcium 8.8. Bilirubin 0.4, AST 34, ALT 49, alk phos 141. Troponin 0.04. Albumin 3.8. Urinalysis reveals cloudy urine with specific gravity of 1.009. EKG reveals sinus bradycardia. There is perhaps a millimeter of ST elevation in the inferior leads, III and aVF. This EKG ST elevation in III and aVF is slightly different than EKG obtained on 08/06/18. 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 ASSESSMENT AND PLAN: Mr. Walker is a 78-year-old male with numerous medical problems including hypertension, paroxysmal atrial fibrillation, type 2 diabetes , stage 3 chronic kidney disease, chronic systolic congestive heart failure, and coronary artery disease, who presented to the emergency room after having a syncopal episode at [facility]. 1. Syncope. The etiology behind this is not clear. In the ER, the patient is found to have heart rate that drops into the high 40s at times. He appeared to be asymptomatic with this; however, he was lying back in the stretcher. He will be monitored on telemetry overnight. I am going to cut back his metoprolol dose from 50 mg twice daily to 25 mg p.o. twice daily. Transthoracic echocardiogram has also been ordered. The patient has no focal neurologic deficits; therefore, I am going to hold off on getting a CT of the brain. We will get the patient up and ambulating to ensure that he is asymptomatic. 2. Acute on chronic renal failure. The patient's baseline creatinine is typically around 2. As of 04/02/19, his creatinine had over doubled to 4.65. Today, it is back down to 3.87. I am going to hold his Lasix. I am going to also hold his lisinopril. Can utilize amlodipine for hypertension if his blood pressure does not normalize. Nephrology has been consulted by the ER. The patient is mildly hyperkalemic with a potassium of 6. We will give Kayexalate 15 g p.o. x1. The patient has received 500 mL of fluid in the emergency room. By report from the patient's sister, the patient drinks either Coke Zero or water all day long. 3. Chronic systolic congestive heart failure. At this time, Grupo appears to be euvolemic. I am going to hold his Lasix, so we will need to monitor his fluid status closely. 4. Hypothyroidism. Continue current dose of Synthroid. 5. Hypertension. As above, I am discontinuing the patient's lisinopril for now. He will continue on a reduced dose of metoprolol given his episodes of bradycardia. If his blood pressures increase, he should be started on amlodipine. 6. Paroxysmal atrial fibrillation. The patient is currently in sinus rhythm. He is not on any anticoagulants. 7. Type 2 diabetes. The patient has a history of diet-controlled diabetes. He is currently not on any medications for diabetes. His blood sugar on presentation to the emergency room was high, though this was after eating. I will check a hemoglobin A1c. If his A1c is up, we will start a lispro sliding scale with fingersticks a.c. and h.s. 8. DVT prophylaxis: According to the Adult Thrombosis Prophylaxis Risk Factor Assessment Guide, the patient has a total risk factor score of 5, making him the highest risk. He will be placed on heparin 5000 units subcutaneous q.8 hours. 9. Code status is full. TIME SPENT: Sixty-five minutes was spent admitting this patient. [id number]/[facility] #: [id number] MIKE
[2019-04-09] MEDS ORDERED: amLODIPine TAB* 5 MG PO ONE (16:58)
[2019-04-09 17:35] LABS: Creatine Kinase 206 U/L (10-223)
[2019-04-09] MEDS ORDERED: Atorvastatin* 20 MG TAB PO SCH (21:00)
[2019-04-09] MEDS: Metoprolol Tartrate TAB* 25 MG PO SCH (21:24)
[2019-04-09] MEDS: Sodium Bicarbonate (ANTACID)* 650 MG TAB PO SCH (21:24)
[2019-04-09] MEDS: Heparin VIAL(*) 5000 UNITS/ML VIAL (FIVE THOUSAND) SUBCUT SCH (21:24)
[2019-04-10] MEDS: Heparin VIAL(*) 5000 UNITS/ML VIAL (FIVE THOUSAND) SUBCUT SCH ×2 (05:22→14:03)
[2019-04-10] MEDS ORDERED: Levothyroxine TAB* 75 MCG TAB PO SCH (06:00)
[2019-04-10 06:59] LABS: CO2 Carbon Dioxide 16 mmol/L (22-32); Calcium 8.6 mg/dL (8.6-10.3); Chloride 110 mmol/L (101-111); Sodium 136 mmol/L (135-145)
[2019-04-10 07:04] LABS: BUN/Creatinine Ratio 34.8 (8-20); Blood Urea Nitrogen 119 mg/dL (6-24); EGFR African American 21.2 (>60); EGFR Non-African American 17.5 (>60); Glucose 146 mg/dL (70-100)
[2019-04-10 07:11] LABS: Anion Gap 10 mmol/L (2-11)
--- NOTE | 2019-04-10 08:22 | PN ---
Progress Note - Progress Note Date of Service: 04/10/19 Note: Inpatient Nephrology FU Note: Performed by Dr. Rose Crisostomo, [facility] Nephrology 04/10/2019 78 yo WM Admitted with fall & Syncope-Near Syncope Hes in DAJUAN. Improving, non Oliguric Of note, hes hard of hearing, with dementia and a poor historian. sCr baseline 2.0, was stable for years. Last BUN/sCr 119/3.42~04/10/2019 improved from 130/3.87~04/09/2019 & 143/4.65~. sCr improved as Lisinopril was stopped, and given 1.5L in ED. Of note, Lasix on hold too. Renal US 04/09/2019 Rt 9.2 cm, Lt 9.8 cm. No HN. PVR 120 cc. Lt renal 1.3 cm Cyst. Volume status mild fluid overload, on CXR 04/09/2019 Active Medications: Amlodipine Besylate (Norvasc Tab*) 5 mg PO DAILY [facility] Aspirin (Aspirin Ec Tab*) 81 mg PO DAILY [facility] Atorvastatin Calcium (Lipitor*) 20 mg PO BEDTIME [facility] Last Admin: 04/09/19 21:24 Dose: 20 mg Heparin Sodium (Porcine) (Heparin Vial(*)) 5,000 units SUBCUT Q8HR [facility] Last Admin: 04/10/19 05:22 Dose: 5,000 units Levothyroxine Sodium (Synthroid Tab*) 75 mcg PO QAM@0600 [facility] Last Admin: 04/10/19 05:22 Dose: 75 mcg Metoprolol Tartrate (Lopressor Tab*) 25 mg PO BID [facility] Last Admin: 04/09/19 21:24 Dose: 25 mg Sodium Bicarbonate (Sodium Bicarbonate (Antacid)*) 1,300 mg PO TID [facility] Last Admin: 04/09/19 21:24 Dose: 1,300 mg Objective: Vital Signs Temp 97.6 F 04/10/19 07:25 Pulse 75 04/10/19 07:25 Resp 18 04/10/19 07:25 BP 133/58 04/10/19 07:25 Pulse Ox 99 04/10/19 07:25 Abdomen Soft Abdomen No Ascites Heart: NSR, No LE Edema, No murmur Lungs: Clear to auscultation Extremities: No edema, no rash Skin no rash Musculoskeletal: No joint swelling Laboratory Reviewed Sodium 136 mmol/L (135-145) 04/10/19 06:21 Potassium TNP 04/10/19 06:21 BUN 119 mg/dL (6-24) H 04/10/19 06:21 Creatinine 3.42 mg/dL (0.67-1.17) H 04/10/19 06:21 Hemoglobin A1c 8.5 % (4.0-5.6) H 04/09/19 11:15 Calcium 8.6 mg/dL (8.6-10.3) 04/10/19 06:21 AST 34 U/L (13-39) 04/09/19 11:15 ALT 49 U/L (7-52) 04/09/19 11:15 Assessment and Plan: DAJUAN, etiology? Lisinopril, ATN, dehydration?! BUN/sCr better s/p IVF and off of ACEI Renal U/S no HN & Kidney size is not too atrophic. I strongly believe this is predominantly DAJUAN on CKD. Na better. Hyperkalemia, s/p SPS, off Lisinopril. Need repeat K today Pending UA & UPCR No indication for HD I'll try to speak to family once here
[2019-04-10] MEDS ORDERED: Aspirin EC TAB* 81 MG TAB.EC PO SCH (09:00)
[2019-04-10] MEDS ORDERED: amLODIPine TAB* 5 MG PO SCH (09:00)
[2019-04-10] MEDS ORDERED: Lisinopril TAB* 10 MG PO SCH (09:00)
[2019-04-10] MEDS ORDERED: Perflutren Lipid Microsphere* 3 ML VIAL ONE (09:03)
[2019-04-10] MEDS: Metoprolol Tartrate TAB* 25 MG PO SCH (10:00)
[2019-04-10] MEDS: Sodium Bicarbonate (ANTACID)* 650 MG TAB PO SCH (10:00)
[2019-04-10 11:25] VITALS: BP 109/57
--- NOTE | 2019-04-10 11:29 | ECHO ---
*[facility]* [place] [address] Fax #: [phone] Transthoracic Echocardiogram Patient: Grupo Walker : 1940 Study Date: 04/10/2019 Age: 78 Gender: M HR: 60 bpm Height: 62 in /157.5 cm BSA: 1.87 m^2 Weight: 169.6 lb /77.1 kg BMI: 31.1 kg/m^2 *Facilities Custodian: Tashia Rodas [facility] *Referring Physician: * Magalie UriasReading Physician: * Marcos Palencia MD Indications: Syncope. History: Coronary artery disease. Congestive heart failure. Risk factors: Hypertension. Diabetes mellitus. Dyslipidemia. Labs, prior tests, procedures, and surgery: Permanent pacemaker system implantation. Coronary artery bypass grafting. Aortic valve replacement with a bovine bioprosthetic valve. Conclusions Summary: - Left ventricle: Systolic function is mildly reduced. The estimated ejection fraction is 45-50%. Hypokinesis of the mid-apicalanterolateral myocardium. - Right ventricle: Systolic function is normal. - Mitral valve: The Mitral valve annulus appears calcified. The leaflets are mildly thickened. There is trace to mild regurgitation. - Aortic valve: There is a bioprosthetic valve. The findings are consistent with mild stenosis. There is moderate regurgitation. The mean systolic gradient is 14.0 mm Hg. The valve area by the velocity-time integral method is 1.10 cm^2. The valve area by the peak velocity method is 0.90 cm^2. - Tricuspid valve: There is trace regurgitation. - Pulmonary arteries: Systolic pressure can not be accurately estimated. - Compared to study of 02/08/19, there is little change. Study data: Transthoracic echocardiogram. Procedure: Transthoracic echocardiography was performed. Image quality was adequate. Intravenous Definity , 4 mlswas administered. Complete 2D, spectral Doppler, and color flow Doppler. Location: Bedside. Patient status: Inpatient. Patient room number: 446. Rhythm: Normal sinus rhythm. Findings Left ventricle: The cavity size is normal. Wall thickness is moderately increased. Systolic function is mildly reduced. The estimated ejection fraction is 45-50%. Regional wall motion abnormalities: Hypokinesis of the mid-apicalanterolateral myocardium. Doppler parameters are consistent with abnormal left ventricular relaxation (grade 1 diastolic dysfunction). Right ventricle: The cavity size is normal. Systolic function is normal. Left atrium: The atrium is severely dilated. Right atrium: The atrium is mildly dilated. Pacer wire noted in right atrium. Mitral valve: The Mitral valve annulus appears calcified. The leaflets are mildly thickened. The findings are consistent with trivial stenosis. There is trace to mild regurgitation. Aortic valve: Not well visualized. There is a bioprosthetic valve. The annulus is calcified. The findings are consistent with mild stenosis. There is moderate regurgitation. Tricuspid valve: The leaflets are normal thickness. There is no evidence of stenosis. There is trace regurgitation. Pulmonic valve: The leaflets are normal thickness. There is no evidence of stenosis. There is trace regurgitation. Aorta: Aortic root: The aortic root is appears normal. Ascending aorta: The ascending aorta is mildly dilated. Aortic arch: The aortic arch is appears normal. Pericardium: There is no significant pericardial effusion. Pulmonary arteries: The main pulmonary artery is normal-sized. Systolic pressure can not be accurately estimated. Systemic veins: Inferior vena cava: Not well visualized. Measurements Left ventricle Value Ref Aortic valve continued Value Ref LISS, LAX 4.9 cm 4.2 - 5.8 Peak v, S 3.2 m/sec ---- ESD, LAX 3.4 cm 2.5 - 4.0 VTI, S 61.0 cm ---- FS, LAX 31 % 25 - 43 Mean grad, S 14.0 mm Hg ---- PW, ED, LAX (H) 1.5 cm 0.6 - 1.0 Peak grad, S 41.0 mm Hg ---- E', lat geri, TDI (L) 4.3 cm/sec >=10.0 LVOT/AV, VTI ratio 0.3 ---- E/e', lat geri, TDI 14 --------- MIRELLA, VTI 1.10 cm^2 -- -- MIRELLA, Vmax 0.90 cm^2 ---- LVOT Value Ref AR peak v 2.68 m/sec ---- Diam, S 2.00 cm --------- AR decel time 1188 ms ---- Peak gurmeet, S 0.9 m/sec --------- AR PHT 345 ms ---- VTI, S 21.0 cm --------- AR peak grad 29 mm Hg ---- Peak grad, S 3 mm Hg --------- Mean grad, S 2 mm Hg --------- Mitral valve Value Ref Peak E 0.6 m/sec ---- Ventricular septum Value Ref Peak A 0.9 m/sec ---- IVS, ED (H) 2.0 cm 0.6 - 1.0 Decel time 254 ms ---- Peak E/A ratio 0.7 ---- Right ventricle Value Ref LISS, LAX 2.8 cm --------- Pulmonic valve Value Ref LISS major ax, A4C (L) 4.4 cm 5.9 - 8.3 Peak v, S 0.9 m/sec ---- Peak grad, S 3.2 mm Hg ---- Left atrium Value Ref ML dim, A4C 4.0 cm --------- Aortic root Value Ref SI dim, A4C 6.3 cm --------- Root diam 3.1 cm <4.0 Vol/bsa, ES, 2-p (H) 55 ml/m^2 16 - 34 Ascending aorta Value Ref Right atrium Value Ref AAo AP diam, S 3.5 cm ---- SI dim, ES 5.1 cm 3.4 - 5.3 AAo AP diam/bsa, S 1.9 cm/m^2 ---- ML dim, ES, A4C (H) 4.6 cm 2.6 - 4.4 Estimated RAP 8 mm Hg --------- Aortic arch Value Ref Arch diam 2.4 cm ---- Aortic valve Value Ref Geri diam, ED 2.1 cm --------- Decending aorta Value Ref Geri diam/bsa, ED 1.1 cm/m^2 --------- Faviola peak gurmeet 0.62 m/sec ---- Legend: (L) and (H) lv values outside specified reference range. Prepared and electronically signed by Marcos Palencia MD 04/10/2019 11:28
[2019-04-10] MEDS ORDERED: Sodium Polystyrene ORAL.SOL* 15 GM/60 ML BTL PO ONE (11:30)
[2019-04-10] MEDS ORDERED: Tamsulosin CAP* 0.4 MG PO SCH (12:00)
[2019-04-10 13:25] LABS: EGFR Non-African American 17.5 (>60)
[2019-04-10 13:26] LABS: Calcium 8.8 mg/dL (8.6-10.3); EGFR African American 21.2 (>60); Potassium 5.1 mmol/L (3.5-5.0)
[2019-04-10 14:36] LABS: Urine Appearance Clear; Urine Bilirubin Negative (Negative); Urine Blood Negative (Negative); Urine Color Yellow; Urine Glucose 3+(>=500 mg/dL) (Negative); Urine Ketones Negative (Negative); Urine Nitrite Negative (Negative); Urine Protein Negative (Negative); Urine Specific Gravity 1.011 (1.010-1.030); Urine Urobilinogen Negative (Negative)
--- NOTE | 2019-04-10 22:38 | DS ---
CC: Dr. Reed; Dr. Palencia; Dr. Pickett; Dr. Crisostomo * DISCHARGE SUMMARY: DATE OF ADMISSION: 04/09/19 DATE OF DISCHARGE: 04/10/19 PRIMARY CARE PROVIDER: Dr. Reed. DISPOSITION AT DISCHARGE: Home. CONDITION ON DISCHARGE: Stable. DISCHARGE DIAGNOSES: 1. Syncope, possibly due to dehydration. 2. Acute kidney injury on top of chronic kidney disease, stage 3. SECONDARY DIAGNOSES: 1. History of dementia. 2. Stage 3 chronic kidney disease. 3. Chronic systolic congestive heart failure with EF of 40% to 45%. 4. Coronary artery disease. 5. Hypothyroidism. 6. Hypertension. 7. Paroxysmal atrial fibrillation. 8. Diet-controlled diabetes, type 2. 9. Vitamin B12 deficiency. DIET AT DISCHARGE: Renal with low potassium. MEDICATIONS AT DISCHARGE: Include: 1. Aspirin 81 mg daily. 2. Lipitor 20 mg at bedtime. 3. Vitamin D3 1000 units daily. 4. Synthroid 75 mcg daily. 5. Metoprolol tartrate 50 mg b.i.d. 6. Norvasc 5 mg daily. 7. Lasix 20 mg daily. 8. Sodium bicarbonate 1300 mg 3 times day. The patient will receive 10-day supply. 9. Flomax 0.4 mg daily. New medications: 1. Amlodipine. 2. Sodium bicarbonate. 3. Flomax Furosemide dose that was halved. Prior to that the patient was taking 40 mg daily. The patient's lisinopril was stopped. CONSULTATIONS DURING THE HOSPITAL STAY: Included Dr. Crisostomo from Nephrology. LABORATORY DATA AND STUDIES PERFORMED DURING THE HOSPITAL STAY: Included on , sodium 136, potassium of 5.3, chloride 110, carbon dioxide 16, BUN 119, creatinine 3.42. The patient's hemoglobin A1c is 8.5. CBC on 04/09/19, white blood cell count of 7.1, hemoglobin 12.0, hematocrit 35 and platelets of 147. Urinalysis showed specific gravity of 1.009, trace blood and +1 glucose. Abdomen and bladder ultrasound obtained on 04/09/19 showed no hydronephrosis and left renal cyst with the bladder demonstrating a pre-void volume of 124 mL and the patient not being able to void during the test. Transthoracic echocardiogram showed EF of 45% to 50% with hypokinesis of the mid apical lateral myocardium. There was mild aortic stenosis of the aortic valve area of 1.1 cm square and by peak velocity method was 0.9 cm square. Comparison study of 02/08/19, there was no change. HOSPITALIZATION COURSE: Grupo Walker is a 78-year-old male with history of dementia and chronic kidney disease, stage 3, who presented to the hospital after a syncopal episode after eating breakfast at [employer]. For further details , please see history and physical dictated at admission. Shortly, the patient' s creatinine appeared to increased from his baseline. He has been with a creatinine baseline of 2 for the past 4 years and his creatinine was at 4.6 on 04/02/19, and at admission was 3.8, which was mildly improved, but still high. Dr. Crisostomo from Nephrology was consulted and saw the patient. Also, the patient was noted to be hyperkalemic with potassium of 6 on admission. The patient was placed on sodium carbonate as his carbon dioxide was 16 at admission. The patient also was treated with Kayexalate. His YEVGENIY inhibitor, lisinopril at 40 mg was discontinued and the patient was not advised to continue it at all in the future. For his hypertension, after his lisinopril was discontinued, the patient was placed on Norvasc. We also held the patient's Lasix during the hospital stay and it is going to restarted at 20 mg at discharge. At this point at discharge, the patient looks rather euvolemic and I suspect he was somewhat prerenal at admission and that could be the etiology of the patient 's syncope. The patient also has mild to moderate aortic stenosis, but his calculated aortic valve area is rather small, which could contribute to syncopal episodes as his free load is low. At this point, I talked in detail with the patient's sister, Kassidy, who is his primary home health care worker. Kassidy is aware that his diuretic was halved and that he may start regaining weight or have bilateral leg edema or start having problems with shortness of breath. Kassidy is aware of that and if that happens, the patient's Lasix has to be back increased to 40 mg daily and she needs to call his primary care provider or Dr. Palencia. In regards to the patient's hyperkalemia, he was treated with Kayexalate. He is going to be discharged on diabetic and low potassium diet. His hemoglobin A1c appears to be significantly increased also and for that the patient was referred to his primary care provider for further management. It was difficult to measure postvoid residual as the patient had issues with voiding on command, but I did place the patient on Flomax since the patient's nurse noted that he has had intermittent problems with urination during the hospital stay. Please note that there was no significant bladder residual on bladder ultrasound. The patient is recommended to follow up with Dr. Reed next week and Dr. Crisostomo also next week. Basic metabolic panel was going to be drawn on 04/16/19, to be sent to Dr. Reed and Dr. Crisostomo to followup on the patient's electrolytes and renal function. PHYSICAL EXAM AT THE TIME OF DISCHARGE: Vital Signs: Blood pressure 109/57, heart rate of 70 and regular, respiratory rate 18, oxygen saturation 99% on room air, temperature 97.8. General: The patient is a pleasant 78-year-old male who is no acute distress. The patient is alert and oriented to self and location. He does not know his age and he does not know the date. HEENT: Head atraumatic, normocephalic. Eyes: Pupils equal and reactive to light and accommodation. Oropharynx clear. Mucosa moist. Neck: Supple. No JVD. No bruits bilaterally. Cardiovascular; Regular rate and rhythm. No murmur. Respiratory: Clear to auscultation bilaterally. Abdomen: Soft, nontender. Bowel sounds present in all 4 quadrants. Extremities: There is no edema. Pulses +2 bilaterally. No clubbing or cyanosis. On evaluation of the skin, healed excoriations of bilateral lower extremities and calves likely self- inflicted, not infected. Neuro Evaluation: Speech clear. Cranial nerves II through XII grossly intact. Motor strength is 5/5 bilaterally. Please note this is a short summary of the patient's hospital stay. Please refer to further medical records for details. TIME SPENT: Approximately 40 minutes was spent on the patient's discharge. [id number]/[facility] #: [id number] MTDD
== END 2019-04-10 15:00 | disposition home or self-care (01) ==
LOC: ED 10:55 → MEDTELE 14:24
PROVIDERS: ADMIT Hospitalist; ATTEND Internal Medicine
DX: R55 Syncope and collapse (principal); N17.9 Acute kidney failure, unspecified; I12.9 Hypertensive chronic kidney disease with stage 1 through stage 4 chronic kidney disease, or unspecified chronic kidney disease; E11.22 Type 2 diabetes mellitus with diabetic chronic kidney disease; N18.3 Chronic kidney disease, stage 3 (moderate); I25.10 Atherosclerotic heart disease of native coronary artery without angina pectoris; E03.9 Hypothyroidism, unspecified; I48.0 Paroxysmal atrial fibrillation; E53.8 Deficiency of other specified B group vitamins; Z79.82 Long term (current) use of aspirin; Z79.899 Other long term (current) drug therapy; Z87.891 Personal history of nicotine dependence
CPT/HCPCS: 36415; 71045; 76770; 80048; 80053; 81003; 81015; 82436; 82550; 82570; 83036; 84133; 84156; 84300; 84484; 85025; 93005; 93306; 96372; 99285; A9270-GY; C8929; G0378; J1644

== ENCOUNTER 2019-06-27 09:17 | Observation (INO) | payer MEDICARE ==
--- NOTE | 2019-06-27 10:11 | ED ---
Shortness of Breath - HPI Summary HPI Summary: Patient is a 78 y/o M presenting to the ED for a chief complaint of shortness of breath for the last 3 days. Patient is present with his sister who is providing the history. Patient's sister states that the patient has had shortness of breath to the point of gasping for air and having to hold himself up to breathe. He also has a productive cough. The shortness of breath worsens with exertion. No alleviating factors are reported. Patient denies any fever, chills, erythema of eyes, sore throat, chest pain, abdominal pain, nausea, vomiting, dysuria, hematuria, myalgia, edema, rash, or dizziness. PMHx is significant for dementia. - History of Current Complaint Chief Complaint: EDShortnessOfBreath Hx Obtained From: Family/Mica Miner - Sister Onset/Duration: Sudden Onset, Lasting Days - 3 days, Still Present Timing: Constant Current Severity: Moderate Dyspnea At: Rest Aggravating Factors: Other - Exertion Alleviating Factors: Nothing Associated Signs & Symptoms: Cough (Productive) - Allergy/Home Medications Allergies/Adverse Reactions: Allergies Allergy/AdvReac Type Severity Reaction Status Date / Time No Known Allergies Allergy Verified 07/06/18 09:24 Home Medications: Home Medications Levothyroxine TAB* [Synthroid 75 MCG TAB*] 75 mcg PO QAM 11/18/12 [History Confirmed 06/27/19] Aspirin EC TAB* [Ecotrin EC Low Dose 81 MG*] 81 mg PO DAILY 03/26/13 [History Confirmed 06/27/19] Atorvastatin* [Lipitor 20 MG*] 20 mg PO BEDTIME 12/27/17 [History Confirmed 04/16] Metoprolol Tartrate TAB* [Lopressor TAB*] 50 mg PO BID 12/27/17 [History Confirmed 06/27/19] Cholecalciferol (Vitamin D3) [Vitamin D3] 1,000 unit PO DAILY 04/09/19 [History Confirmed 06/27/19] Furosemide TAB* [Lasix TAB*] 20 mg PO DAILY #30 tab 04/10/19 [Rx Confirmed 06/26] Sodium Bicarbonate (ANTACID)* 1,300 mg PO TID #60 tab 04/10/19 [Rx Confirmed 04/16] Tamsulosin CAP* [Flomax CAP*] 0.4 mg PO DAILY #30 cap 04/10/19 [Rx Confirmed 04/16] amLODIPine TAB* [Norvasc 5 mg TAB*] 5 mg PO DAILY #30 tab 04/10/19 [Rx Confirmed 06/27/19] Betamethasone Dip 0.05% ON(NF) [Betamethasone Dipr 0.05% OINT(NF)] 1 applic TOPICAL DAILY 06/27/19 [History Confirmed 06/27/19] Cyanocobalamin INJ * [Vitamin B12 INJ *] 1,000 mcg IM .[id number] 06/27/19 [ History Confirmed 06/27/19] PMH/Surg Hx/FS Hx/Imm Hx Previously Healthy: Yes Endocrine/Hematology History: Reports: Hx Diabetes, Hx Thyroid Disease - HYPOTHYROIDISM, Hx Anemia Denies: Hx Systemic Lupus Erythematosus Cardiovascular History: Reports: Hx Coronary Artery Disease, Hx Hypercholesterolemia - HLD, Hx Hypertension, Hx Valvular Heart Disease - SEVERE AORTIC REGURITATION, HX MECHANICAL (NOW BOVINE) VALVE, Other Cardiovascular Problems/Disorders - borderline diabetic, on metformin only Denies: Hx Congestive Heart Failure, Hx Pacemaker/ICD Respiratory History: Denies: Hx Asthma Musculoskeletal History: Denies: Hx Rheumatoid Arthritis Sensory History: Reports: Hx Hearing Aid, Hx Hearing Problem Denies: Hx Contacts or Glasses Opthamlomology History: Denies: Hx Contacts or Glasses Neurological History: Reports: Hx Dementia Psychiatric History: Denies: Hx Panic Disorder - Cancer History Hx Chemotherapy: No Hx Radiation Therapy: No - Surgical History Surgical History: Yes Surgery Procedure, Year, and Place: CAROTID ARTERY (NO STENTS) SEPTEMBER 2014;. CABG 2002 WITH MECHANICAL AORTIC VALVE ;. MECHANICAL VALVE REPLACEMENT AT [facility] 10/2012 TO BOVINE VALVE; ( CURRENTLY ONLY HAS A BOVINE VALVE ) NO HEART STENTS CAN FIND THIS SURGERY INFORMATION IN SCANNED IN REPORTS; Hx Anesthesia Reactions: No Infectious Disease History: No Infectious Disease History: Denies: Traveled Outside the [place] in Last 30 Days - Family History Known Family History: Negative: Blood Disorder - Social History Occupation: Retired Lives: With Family Alcohol Use: None Hx Substance Use: No Substance Use Type: Reports: None Hx Tobacco Use: No Smoking Status (MU): Never Smoked Tobacco Review of Systems Negative: Fever, Chills Negative: Erythema Negative: Sore Throat Negative: Chest Pain Positive: Shortness Of Breath, Cough - Productive Negative: Abdominal Pain, Vomiting, Nausea Negative: dysuria, hematuria Negative: Myalgia, Edema Negative: Rash Neurological/Mental Status: Other - Negative dizziness All Other Systems Reviewed And Are Negative: Yes Physical Exam - Summary Physical Exam Summary: Constitutional: Well-developed, Well-nourished, Alert. (-) Distressed. Patient is hard of hearing. Skin: Warm, Dry HENT: Normocephalic; Atraumatic Eyes: Conjunctiva normal Neck: Musculoskeletal ROM normal neck. (-) JVD, (-) Stridor, (-) Tracheal deviation Cardio: Rhythm regular, rate normal, Heart sounds normal; Intact distal pulses; The pedal pulses are 2+ and symmetric. Radial pulses are 2+ and symmetric. Systolic heart murmur 3/5. Pulmonary/Chest wall: Effort normal. (-) Respiratory distress, (-) Wheezes, (-) Rales. Crackles in the right lung base. On 2 L of oxygen, oxygen saturation is 100%. Abd: Soft, (-) tenderness, (-) Distension, (-) Guarding, (-) Rebound Musculoskeletal: 2+ pitting edema of the bilateral LE Lymph: (-) Cervical adenopathy Neuro: Alert, Oriented x3 Psych: Mood and affect Normal Triage Information Reviewed: Yes Vital Signs Reviewed: Yes Procedures - Sedation Patient Received Moderate/Deep Sedation with Procedure: No Diagnostics - Laboratory Result Diagrams: 06/27/19 11:00 06/27/19 11:00 Lab Statement: Any lab studies that have been ordered have been reviewed, and results considered in the medical decision making process. - Radiology Chest X-ray Radiology Interpretation Completed By: Radiologist Summary of Radiographic Findings: Chest X-ray IMPRESSION: 1. LOW LUNG VOLUMES WITH PULMONARY INTERSTITIAL EDEMA. 2. 2 CM NODULE OF THE RIGHT MIDLUNG FIELD, NOT CLEARLY SEEN ON THE PREVIOUS EXAMINATION. RECOMMEND CONSIDERATION OF FURTHER EVALUATION WITH CT OF THE CHEST. Reviewed by Dr. Westfall. - EKG 10:33 Cardiac Rate: NL - 75 BPM EKG Rhythm: Sinus Rhythm ST Segment: Normal Ectopy: None Summary of EKG Findings: EKG at 10:33 shows normal sinus rhythm with 75 BPM, T wave inversions in V5-V6, no STEMI. Reviewed and interpreted by Dr. Westfall. Re-Evaluation - Re-Evaluation First Eval Re-Evaluation Time: 10:47 Change: Unchanged Comment: At 10:47, patients oxygen saturation is 90-91% on room air. Course/Dx - Course Course Of Treatment: Patient is a 78 y/o M presenting to the ED for a chief complaint of shortness of breath for the last 3 days. Patient is present with his sister who is providing the history. Patient's sister states that the patient has had shortness of breath to the point of gasping for air and having to hold himself up to breathe. He also has a productive cough. The shortness of breath worsens with exertion. Patient denies any fever, chills, erythema of eyes , sore throat, chest pain, abdominal pain, nausea, vomiting, dysuria, hematuria , myalgia, edema, rash, or dizziness. PMHx is significant for dementia. On exam , patient is hard of hearing, crackles in the right lung base. On 2 L of oxygen , oxygen saturation is 100%. 2+ pitting edema of the bilateral LE. Systolic heart murmur 3/5. In the ED course, patient was given Lasix 40 mg IV SLOW and NTG 1 inch TOPICAL. At 10:47, patients oxygen saturation is 90-91% on room air. EKG at 10:33 shows normal sinus rhythm with 75 BPM, T wave inversions in V5-V6, no STEMI. Chest X-ray IMPRESSION: 1. LOW LUNG VOLUMES WITH PULMONARY INTERSTITIAL EDEMA. 2. 2 CM NODULE OF THE RIGHT MIDLUNG FIELD, NOT CLEARLY SEEN ON THE PREVIOUS EXAMINATION. RECOMMEND CONSIDERATION OF FURTHER EVALUATION WITH CT OF THE CHEST. Laboratory abnormal findings: RBC 3.31, Hgb 10.2, Hct 31, absolute lymphs 0.6, BUN 61, creatinine 2.44, glucose 267, alkaline phosphatase 150, BNP >1300, troponin I 0.05. At 12:19, Dr. Lara Callaway reviewed the patients case and agrees to admit the patient to [facility] with a diagnosis of hypoxemia and CHF exacerbation. Patient will be admitted with a diagnosis of hypoxemia and CHF exacerbation. - Diagnoses Provider Diagnoses: Hypoxemia, CHF exacerbation - Physician Notifications Discussed Care of Patient With: Lara Callaway - At 12:19, Dr. Lara Callaway reviewed the patients case and agrees to admit the patient to [facility] with a diagnosis of hypoxemia and CHF exacerbation. Time Discussed With Above Provider: 12:19 Instructed by Provider To: Admit As Inpatient Discharge ED - Sign-Out/Discharge Documenting (check all that apply): Patient Departure - Admit - Discharge Plan Condition: Stable Disposition: ADMITTED TO [facility] Referrals: Amos Reed MD [Primary Care Provider] - - Attestation Statements Document Initiated by Scribe: Yes Documenting Scribe: Tashia Raymundo Provider For Whom Scribe is Documenting (Include Credential): Matias Westfall MD Scribe Attestation: Tashia Mansfield, scribed for Matias Westfall MD on 06/27/19 at 1315. Status of Scribe Document: Ready
[2019-06-27 11:39] LABS: ABS Eosinophils 0.1 10^3/ul (0-0.6); ABS Lymphocytes 0.6 10^3/ul (1.0-4.8); ABS Monocytes 0.7 10^3/ul (0-0.8); ABS Neutrophils 5.2 10^3/ul (1.5-7.7); Hematocrit 31 % (42-52); Hemoglobin 10.2 g/dL (14.0-18.0); Lymphocyte % 9.7 %; Mean Corpuscular HGB Conc 33 g/dL (31-36); Mean Corpuscular Hemoglobin 33 pg (27-31); Mean Corpuscular Volume 98 fL (80-94); Mean Platelet Volume 7.7 fL (7.4-10.4); Platelet Count 171 10^3/uL (150-450); Red Blood Count 3.13 10^6 /uL (4.18-5.48); Red Cell Distribution Width 16 % (10-15); White Blood Count 6.6 10^3/uL (3.5-10.8)
[2019-06-27 12:05] LABS: Albumin 3.3 g/dL (3.2-5.2); Anion Gap 9 mmol/L (2-11); CO2 Carbon Dioxide 25 mmol/L (22-32); Calcium 8.5 mg/dL (8.6-10.3); Chloride 102 mmol/L (101-111); Potassium 4.3 mmol/L (3.5-5.0); Sodium 136 mmol/L (135-145); Troponin I 0.05 ng/mL (<0.03)
[2019-06-27] MEDS ORDERED: Nitro 2% OINT* (Nitroglycerin) 1 INCH/PAK PAK TOPICAL ONE (12:09)
[2019-06-27] MEDS ORDERED: Furosemide IV* 10 MG/ML VIAL (40 MG) IV SLOW PU ONE (12:09)
[2019-06-27 12:11] LABS: ALT 29 U/L (7-52); AST 28 U/L (13-39); Albumin/Globulin Ratio 1.2 (1-3); Alkaline Phosphatase 150 U/L (34-104); Blood Urea Nitrogen 61 mg/dL (6-24); EGFR African American 31.2 (>60); EGFR Non-African American 25.8 (>60); Globulin 2.7 g/dL (2-4); Glucose 267 mg/dL (70-100)
[2019-06-27] MEDS ORDERED: Acetaminophen TAB* 325 MG PO PRN (13:47)
[2019-06-27] MEDS ORDERED: Senna TAB 8.6 mg* TAB PO PRN (13:47)
[2019-06-27] MEDS ORDERED: Al Hydrox/Mg Hydrox/Simet LIQ* 30 ML UDC PO PRN (13:47)
[2019-06-27 15:06] LABS: Folate 14.33 ng/mL (>3.99)
--- NOTE | 2019-06-27 15:24 | HP ---
CC: Dr. Reed * HISTORY AND PHYSICAL: DATE OF ADMISSION: 06/27/19 ATTENDING PHYSICIAN WHILE IN THE HOSPITAL: Dr. Lara King * (dictated by KEISHA Arriaga). PRIMARY CARE PROVIDER: Dr. Reed. CHIEF COMPLAINT: Shortness of breath with exertion times approximately 1 week. HISTORY OF PRESENT ILLNESS: Grupo Walker is a 78-year-old white male with past medical history significant for dementia; CKD; heart failure with reduced ejection fraction, with most recent EF of 45% to 50%; coronary artery disease; and paroxysmal atrial fibrillation, not on anticoagulation, who presents to the emergency department today due to progressive shortness of breath with exertion over approximately 1 week. The majority of the history is obtained from the patient's sister, who is his primary quarry plug and feather driller, as the patient is a poor historian due to dementia. The patient's sister, Kassidy, tells me that the patient has been short of breath when he stands up and when he is walking for about 1 week now and it was worse today. She called his primary care doctor and the doctor's office advised the patient to report to the ED. The patient usually prefers to sleep lying flat even without a pillow, and for the last 1 to 2 weeks, he has been sleeping upright in a chair and at times leaning forward to breathe while watching TV. The patient's sister additionally noted lower extremity edema starting yesterday. The patient has not been complaining of this. She has not noted a cough. He has not been complaining of fevers, chills, chest pain, or difficulty breathing. While I was evaluating the patient , he asked if he could urinate into the urinal and it took him over 1 minute to start a stream and he only urinated approximately 20 cc. Of note, the patient is quite hard of hearing and the patient lost his hearing aids and the sister is unable to find them. The patient himself denies chest pain, abdominal pain, fevers, chills, cough. He does not feel short of breath at the time of my evaluation, though he is already on 2 L of oxygen and has received 40 mg of IV Lasix in the emergency department. Additionally, the patient's sister tells me that within the last month he has become itchy on his legs and was frequently scratching them; this explains the healing wounds on his lower extremities. PAST MEDICAL HISTORY: 1. CKD. 2. Heart failure with reduced ejection fraction of 45% to 50% on echocardiogram in March of 2019. 3. Coronary artery disease. 4. Hypothyroidism. 5. Hypertension. 6. Paroxysmal atrial fibrillation, not on anticoagulation. 7. Diet-controlled diabetes. 8. Vitamin B12 deficiency. 9. BPH. 10. Dementia. 11. Hard of hearing. PAST SURGICAL HISTORY: 1. Left carotid endarterectomy. 2. CABG. 3. 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 4. LASIK. HOME MEDICATIONS: 1. Flomax 0.4 mg p.o. daily. 2. Sodium bicarbonate 1300 mg p.o. t.i.d. 3. Metoprolol tartrate 50 mg p.o. b.i.d. 4. Synthroid 75 mcg p.o. daily. 5. Vitamin B12 injection 1000 mcg IM q.3 months. 6. Lasix 20 mg p.o. daily. 7. Vitamin D3 1000 units p.o. daily. 8. Betamethasone ointment 0.05% one application topically daily. 9. Amlodipine 5 mg p.o. daily. 10. Lipitor 20 mg p.o. at bedtime. 11. Aspirin 81 mg p.o. daily. ALLERGIES: No known drug allergies. FAMILY HISTORY: From the EMR, I have gathered that the patient's mother had a history of diabetes and cancer and father of rectal cancer. SOCIAL HISTORY: The patient lives with his sister, Kassidy Mina, who is not his official healthcare proxy, but does help with majority of his healthcare decisions. The patient denies smoking, alcohol use, and drug use. He has no children. 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 REVIEW OF SYSTEMS: An 11-point review of systems is difficult to obtain as the patient at times does not answer questions appropriately, but overall pertinent positives and negatives are above in the HPI and all other systems are negative. PHYSICAL EXAMINATION GENERAL: An overweight, elderly white male, lying upright in hospital bed, appearing comfortable, in no acute distress. VITAL SIGNS: Temperature 98 degrees Fahrenheit, pulse 78, respiratory rate 16, oxygen saturation 98% on 2 L, blood pressure 120/61. HEENT: Eyes: PERRL. Sclerae anicteric. ENT: Mucous membranes moist. LUNGS: Crackles in bilateral lung bases and in the right mid lung field. CARDIO: Regular rate and rhythm without murmurs, rubs, or gallops. ABDOMEN: Soft, nontender, nondistended. UROGENITAL: External genitalia within normal limits. No purulent drainage from the penile meatus observed. Poor urinary stream initiation as described previously. EXTREMITIES: +1 to 2 pitting edema pretibially bilaterally as well as pedally. No clubbing or cyanosis. NEURO: The patient is alert. He is oriented to self. He can tell me he is in [place], but does not know which hospital he is in and does not know the year, he tells me it is 2016. SKIN: Small approximately 2 to 3 mm blisters on the left felder. Excoriations and some scabbing to the left felder. DIAGNOSTIC STUDIES/LAB DATA: White blood cell 6.6, hemoglobin 10.2, hematocrit 31, MCV 98, MCH 33, platelet count 171. Sodium 136, potassium 4.3, chloride 102, carbon dioxide 25, anion gap 9, BUN 61, creatinine 2.44, glucose 267, lactic acid 1.3, calcium 8.5. Total bili 0.9, AST 28, ALT 29, alk phos 150. Troponin 0.05, BNP over 1300. Chest x-ray, radiologist's impression: 1. Low lung volumes with pulmonary interstitial edema. 2. A 2 cm nodule of the right mid lung field, not clearly seen on the previous examination. EKG: Normal sinus rhythm, 75 beats per minute. No ST elevations or depressions. It appears there is T-wave inversion isolated to V6. ASSESSMENT AND PLAN: Grupo Walker is a 78-year-old white male with past medical history significant for heart failure with reduced ejection fraction, coronary artery disease, chronic kidney disease, hypertension, paroxysmal atrial fibrillation, and benign prostatic hypertrophy, who presents to the emergency department today due to progressive shortness of breath on exertion. The patient will be admitted OBV for: 1. Acute hypoxic respiratory failure. It appears this is related to decompensated heart failure. The patient's BNP is elevated and his chest x-ray shows pulmonary interstitial edema. He additionally has peripheral edema. I will be giving him b.i.d. 40 mg IV of Lasix. He already received 1 dose of this in the emergency department. He had an echocardiogram in March, which showed an EF of 45% to 50%. I see no reason to repeat it at this time. I am going to check a magnesium and his potassium tomorrow given the aggressive diuresis. He does not typically require oxygen at baseline. Regarding his heart failure, I will be continuing his home metoprolol tartrate. It appears that the patient does not take an YEVGENIY inhibitor and this may benefit him in the future and prevent further decompensation and this should be considered during this hospitalization. 2. Benign prostatic hypertrophy. The patient has a past medical history of benign prostatic hypertrophy and takes Flomax; however, I observed that he had poor urinary steam initiation during my exam. He did attempt to void during my examination and so I will order a postvoid bladder scan. If he is retaining, then a Molina catheter will be placed. I will be continuing his Flomax. 3. Elevated troponin. The patient has a minimally elevated troponin to 0.05. I have no concern for acute coronary syndrome since the patient is asymptomatic ; however, he is a poor historian, but there are no significant ischemic changes on his EKG and he has had an elevated troponin to around this level every time that he has come to the emergency department within the last 2 years. I suspect this is related to his renal disease and he also has some ischemic demand in the setting of his decompensated heart failure. 4. Coronary artery disease. I will be continuing the patient's home metoprolol , aspirin, statin. I have no concern for acute coronary syndrome as previously mentioned. 5. Anemia. The patient has a history of vitamin B12 deficiency. His anemia appears to be around his baseline, but 3 months ago his hemoglobin was approximately 2 points higher. I will check a B12 and a folate. 6. Paroxysmal atrial fibrillation. The patient does not take anticoagulation at home. I will continue his metoprolol. He is currently rate controlled and in normal sinus rhythm on EKG. 7. Diabetes mellitus type 2. The patient is diet controlled at home. He is hyperglycemic in the emergency department. I will order fingersticks daily, but I will hold off on a lispro sliding scale at this time and I will be testing a hemoglobin A1c. 8. Hypothyroidism. I will continue the patient's home Synthroid. 9. Chronic kidney disease. The patient is at his baseline creatinine. 10. Hypertension. I will be continuing the patient's home metoprolol and amlodipine. 11. FEN: The patient will have a carbohydrate consistent and heart-healthy diet. Electrolytes are with no need for replacement at this time and no need for IV fluids. 12. DVT prophylaxis: The patient has a VTE risk score of 4 and I will order Lovenox daily. 13. Code status: The patient is DNR/DNI. I have updated his MOLST. TIME SPENT: Approximately 55 minutes was spent on this admission, approximately half this time was spent at bedside evaluating the patient and discussing the plan of care. This case has been reviewed by my attending, Dr. Lara King, and she agrees with this plan of care. KEISHA ARRIAGA [id number]/CPS #: [id number] MIKE
[2019-06-27] MEDS: Sodium Bicarbonate (ANTACID)* 650 MG TAB PO SCH ×2 (16:28→21:04)
[2019-06-27] MEDS: Enoxaparin(*) 30 MG/0.3 ML SYR SUBCUT SCH (16:28)
[2019-06-27] MEDS: Furosemide IV* 10 MG/ML VIAL (40 MG) IV SLOW PU SCH (16:28)
[2019-06-27] MEDS: Metoprolol Tartrate TAB* 50 mg PO SCH (21:04)
[2019-06-27] MEDS: Atorvastatin* 20 MG TAB PO SCH (21:04)
[2019-06-28] MEDS: Levothyroxine TAB* 75 MCG TAB PO SCH (06:04)
[2019-06-28 06:18] LABS: ABS Basophils 0.1 10^3/ul (0-0.2); ABS Eosinophils 0.1 10^3/ul (0-0.6); ABS Lymphocytes 0.7 10^3/ul (1.0-4.8); ABS Monocytes 0.8 10^3/ul (0-0.8); ABS Neutrophils 5.1 10^3/ul (1.5-7.7); Eosinophil % 1.5 %; Hematocrit 32 % (42-52); Hemoglobin 10.6 g/dL (14.0-18.0); Lymphocyte % 10.8 %; Mean Corpuscular HGB Conc 33 g/dL (31-36); Mean Corpuscular Hemoglobin 32 pg (27-31); Mean Corpuscular Volume 98 fL (80-94); Mean Platelet Volume 7.7 fL (7.4-10.4); Platelet Count 181 10^3/uL (150-450); Red Blood Count 3.29 10^6 /uL (4.18-5.48); Red Cell Distribution Width 16 % (10-15); White Blood Count 6.8 10^3/uL (3.5-10.8)
[2019-06-28 06:38] LABS: BUN/Creatinine Ratio 25.3 (8-20); Calcium 8.9 mg/dL (8.6-10.3); EGFR African American 32.9 (>60); EGFR Non-African American 27.2 (>60); Magnesium 1.9 mg/dL (1.9-2.7); Potassium 4.4 mmol/L (3.5-5.0)
[2019-06-28] MEDS ORDERED: amLODIPine TAB* 5 MG PO SCH (09:00)
[2019-06-28] MEDS: Metoprolol Tartrate TAB* 50 mg PO SCH ×2 (09:10→20:19)
[2019-06-28] MEDS: Tamsulosin CAP* 0.4 MG PO SCH (09:10)
[2019-06-28] MEDS: Sodium Bicarbonate (ANTACID)* 650 MG TAB PO SCH ×3 (09:10→20:19)
[2019-06-28] MEDS: Furosemide IV* 10 MG/ML VIAL (40 MG) IV SLOW PU SCH ×2 (09:10→17:01)
[2019-06-28] MEDS: Cholecalciferol TAB* 1000 UNITS PO SCH (09:10)
[2019-06-28] MEDS: Aspirin EC TAB* 81 MG TAB.EC PO SCH (09:10)
--- NOTE | 2019-06-28 12:32 | PN ---
Subjective Date of Service: 06/28/19 Interval History: Pt has no complaints. He desated to 80's when walking on RA today. Objective Active Medications: Acetaminophen (Tylenol Tab*) 650 mg PO Q4H PRN PRN Reason: MILD PAIN or TEMP > 100.4 Last Admin: 06/27/19 21:04 Dose: 650 mg Al Hydrox/Mg Hydrox/Simethicone (Maalox Plus*) 30 ml PO Q6H PRN PRN Reason: INDIGESTION Amlodipine Besylate (Norvasc Tab*) 5 mg PO DAILY [facility] Last Admin: 06/28/19 09:11 Dose: 5 mg Aspirin (Aspirin Ec Tab*) 81 mg PO DAILY [facility] Last Admin: 06/28/19 09:10 Dose: 81 mg Atorvastatin Calcium (Lipitor*) 20 mg PO BEDTIME [facility] Last Admin: 06/27/19 21:04 Dose: 20 mg Cholecalciferol (Vitamin D Tab*) 1,000 units PO DAILY [facility] Last Admin: 06/28/19 09:10 Dose: 1,000 units Enoxaparin Sodium (Lovenox(*)) 30 mg SUBCUT Q24H [facility] Last Admin: 06/27/19 16:28 Dose: 30 mg Furosemide (Lasix Iv*) 40 mg IV SLOW PU 0800,1700 [facility] Last Admin: 06/28/19 09:10 Dose: 40 mg Levothyroxine Sodium (Synthroid Tab*) 75 mcg PO QAM@0600 [facility] Last Admin: 06/28/19 06:04 Dose: 75 mcg Metoprolol Tartrate (Lopressor Tab*) 50 mg PO BID [facility] Last Admin: 06/28/19 09:10 Dose: 50 mg Senna (Senokot 8.6 Mg Tab*) 1 tab PO BID PRN PRN Reason: CONSTIPATION Sodium Bicarbonate (Sodium Bicarbonate (Antacid)*) 1,300 mg PO TID [facility] Last Admin: 06/28/19 09:10 Dose: 1,300 mg Tamsulosin HCl (Flomax Cap*) 0.4 mg PO DAILY [facility] Last Admin: 06/28/19 09:10 Dose: 0.4 mg Vital Signs - 8 hr 06/28/19 08:16 Temperature 98.3 F Pulse Rate 73 Respiratory 16 Rate Blood Pressure 114/50 (mmHg) O2 Sat by Pulse 94 Oximetry Oxygen Devices in Use Now: None Appearance: 78 yo m in nAD, oriented to self only, eating lunch, pleasant and cooperative Eyes: No Scleral Icterus, PERRLA Ears/Nose/Mouth/Throat: NL Teeth, Lips, Gums, Mucous Membranes Moist Neck: NL Appearance and Movements; NL JVP, Trachea Midline Respiratory: Symmetrical Chest Expansion and Respiratory Effort, - - crackles at b/l bases Cardiovascular: NL Sounds; No Murmurs; No JVD, RRR Abdominal: NL Sounds; No Tenderness; No Distention, No Hepatosplenomegaly Lymphatic: No Cervical Adenopathy Extremities: No Clubbing, Cyanosis, - - trace pedal edema b/l Skin: No Rash or Ulcers Neurological: NL Muscle Strength and Tone Result Diagrams: 06/28/19 05:55 06/28/19 05:55 Microbiology and Other Data: Microbiology 06/27/19 11:00 Aerobic Blood Culture - Preliminary Blood Venous No Growth Day 1 Anaerobic Blood Culture - Preliminary No Growth Day 1 Assess/Plan/Problems-Billing Assessment:
[2019-06-28] MEDS ORDERED: Furosemide IV* 10 MG/ML VIAL (40 MG) IV ONE (14:12)
--- NOTE | 2019-06-28 14:17 | PN ---
Subjective Date of Service: 06/28/19 Interval History: During his eval during lunch pt was comfortable , siting and eating his lunch with no complaints Objective Active Medications: Acetaminophen (Tylenol Tab*) 650 mg PO Q4H PRN PRN Reason: MILD PAIN or TEMP > 100.4 Last Admin: 06/27/19 21:04 Dose: 650 mg Al Hydrox/Mg Hydrox/Simethicone (Maalox Plus*) 30 ml PO Q6H PRN PRN Reason: INDIGESTION Amlodipine Besylate (Norvasc Tab*) 5 mg PO DAILY [facility] Last Admin: 06/28/19 09:11 Dose: 5 mg Aspirin (Aspirin Ec Tab*) 81 mg PO DAILY [facility] Last Admin: 06/28/19 09:10 Dose: 81 mg Atorvastatin Calcium (Lipitor*) 20 mg PO BEDTIME [facility] Last Admin: 06/27/19 21:04 Dose: 20 mg Cholecalciferol (Vitamin D Tab*) 1,000 units PO DAILY [facility] Last Admin: 06/28/19 09:10 Dose: 1,000 units Enoxaparin Sodium (Lovenox(*)) 30 mg SUBCUT Q24H [facility] Last Admin: 06/27/19 16:28 Dose: 30 mg Furosemide (Lasix Iv*) 40 mg IV SLOW PU 0800,1700 [facility] Last Admin: 06/28/19 09:10 Dose: 40 mg Furosemide (Lasix Iv*) 40 mg IV ONCE ONE Stop: 06/28/19 14:13 Levothyroxine Sodium (Synthroid Tab*) 75 mcg PO QAM@0600 [facility] Last Admin: 06/28/19 06:04 Dose: 75 mcg Metoprolol Tartrate (Lopressor Tab*) 50 mg PO BID [facility] Last Admin: 06/28/19 09:10 Dose: 50 mg Senna (Senokot 8.6 Mg Tab*) 1 tab PO BID PRN PRN Reason: CONSTIPATION Sodium Bicarbonate (Sodium Bicarbonate (Antacid)*) 1,300 mg PO TID [facility] Last Admin: 06/28/19 09:10 Dose: 1,300 mg Tamsulosin HCl (Flomax Cap*) 0.4 mg PO DAILY [facility] Last Admin: 06/28/19 09:10 Dose: 0.4 mg Vital Signs - 8 hr 06/28/19 06/28/19 06/28/19 08:16 11:51 12:38 Temperature 98.3 F 98.2 F Pulse Rate 73 65 Respiratory 16 20 Rate Blood Pressure 114/50 116/46 (mmHg) O2 Sat by Pulse 94 99 85 Oximetry Oxygen Devices in Use Now: None Appearance: 78 yo m in nAD, AAOx1 Eyes: No Scleral Icterus, PERRLA Ears/Nose/Mouth/Throat: NL Teeth, Lips, Gums, Mucous Membranes Moist Neck: NL Appearance and Movements; NL JVP, Trachea Midline Respiratory: Symmetrical Chest Expansion and Respiratory Effort, - - faint bibasiliar crackles Cardiovascular: NL Sounds; No Murmurs; No JVD, RRR Abdominal: NL Sounds; No Tenderness; No Distention Extremities: No Clubbing, Cyanosis, - - trace pedal edema b/l Skin: No Rash or Ulcers, No Nodules or Sclerosis Neurological: NL Muscle Strength and Tone Result Diagrams: 06/28/19 05:55 06/28/19 05:55 Microbiology and Other Data: Microbiology 06/27/19 11:00 Aerobic Blood Culture - Preliminary Blood Venous No Growth Day 1 Anaerobic Blood Culture - Preliminary No Growth Day 1 Assess/Plan/Problems-Billing Assessment: Mr. Walker is a 78 year old male with history of chronic systolic HF, dementia, DM, HTN, HLP, CAD/CABG, Afib that presented to ED for SOB - Patient Problems (1) Acute on chronic systolic congestive heart failure Comment: Pt continues to be hypoxemic with ambulation today-dropped his 02 sat to mid 80's Will cont lasix to 40 mg iv bid today Prior echo (04/16)with poor EF 45% with dilated LA and cardiomyopathy, bioprosthetic aortic valve noted. (2) CAD (coronary artery disease) Comment: - Mild troponinemia, likely demand in setting CHF, will repeat for AM - continue ASA and statin (3) Diabetes mellitus, type 2 Comment: - on diet at home - Continue fingersticks (4) Hypertension Comment: - controlled - Continue furosemide,amlodipine and metoprolol. (5) Hypothyroidism Comment: - Continue levothyroxine at current dose. (6) Stage 3 chronic kidney disease Comment: - Remains at baseline (7) Anemia Comment: chronic, at baseline, no acute bleeding noted (8) DVT prophylaxis Comment: - lovenox Status and Disposition: OBV
[2019-06-28] MEDS ORDERED: Dextrose 50% Syringe 50 ML* 25 GM/50 ML SYRINGE IV PUSH PRN (14:24)
[2019-06-28] MEDS: Enoxaparin(*) 30 MG/0.3 ML SYR SUBCUT SCH (14:34)
[2019-06-28] MEDS: Insulin LISPRO* 1 UNITS UNIT SUBCUT SCH ×2 (17:01→20:16)
[2019-06-28] MEDS: Atorvastatin* 20 MG TAB PO SCH (20:19)
[2019-06-29 06:05] LABS: ABS Basophils 0.1 10^3/ul (0-0.2); ABS Eosinophils 0.1 10^3/ul (0-0.6); ABS Lymphocytes 1.3 10^3/ul (1.0-4.8); ABS Monocytes 0.9 10^3/ul (0-0.8); ABS Neutrophils 4.4 10^3/ul (1.5-7.7); Eosinophil % 1.8 %; Hematocrit 34 % (42-52); Hemoglobin 11.4 g/dL (14.0-18.0); Lymphocyte % 19.7 %; Mean Corpuscular HGB Conc 33 g/dL (31-36); Mean Corpuscular Hemoglobin 33 pg (27-31); Mean Corpuscular Volume 98 fL (80-94); Mean Platelet Volume 8.1 fL (7.4-10.4); Platelet Count 189 10^3/uL (150-450); Red Blood Count 3.49 10^6 /uL (4.18-5.48); Red Cell Distribution Width 16 % (10-15); White Blood Count 6.8 10^3/uL (3.5-10.8)
[2019-06-29] MEDS: Levothyroxine TAB* 75 MCG TAB PO SCH (06:12)
[2019-06-29 06:20] LABS: BUN/Creatinine Ratio 22.8 (8-20); Calcium 8.9 mg/dL (8.6-10.3); EGFR African American 30.9 (>60); EGFR Non-African American 25.6 (>60); Potassium 4.5 mmol/L (3.5-5.0)
[2019-06-29] MEDS: Furosemide IV* 10 MG/ML VIAL (40 MG) IV SLOW PU SCH ×2 (08:46→08:56)
[2019-06-29] MEDS: Insulin LISPRO* 1 UNITS UNIT SUBCUT SCH ×2 (08:46→12:29)
[2019-06-29] MEDS: Aspirin EC TAB* 81 MG TAB.EC PO SCH (08:47)
[2019-06-29] MEDS: Cholecalciferol TAB* 1000 UNITS PO SCH (08:47)
[2019-06-29] MEDS: Sodium Bicarbonate (ANTACID)* 650 MG TAB PO SCH ×2 (08:47→13:17)
[2019-06-29] MEDS: Tamsulosin CAP* 0.4 MG PO SCH (08:47)
[2019-06-29] MEDS ORDERED: Furosemide TAB* 40 MG PO SCH (09:00)
[2019-06-29] MEDS: Metoprolol Tartrate TAB* 50 mg PO SCH (09:33)
[2019-06-29 12:45] VITALS: BP 98/52
[2019-06-29] MEDS: Enoxaparin(*) 30 MG/0.3 ML SYR SUBCUT SCH (13:17)
--- NOTE | 2019-06-29 15:12 | DS ---
CC: Dr. Reed * DISCHARGE SUMMARY: DATE OF ADMISSION: 06/27/19 DATE OF DISCHARGE: 06/29/19 PRIMARY CARE PROVIDER: Dr. Reed. DISPOSITION AT DISCHARGE: Home. CONDITION AT DISCHARGE: Stable. DISCHARGE DIAGNOSES: 1. Dyspnea and hypoxemia with acute exacerbation of chronic systolic congestive heart failure. 2. Bioprosthetic aortic valve stenosis. SECONDARY DIAGNOSES: 1. Chronic kidney disease, stage 3. 2. Chronic systolic congestive heart failure. 3. Coronary artery disease. 4. Hypothyroidism. 5. Hypertension. 6. Paroxysmal atrial fibrillation. 7. Now diet-controlled diabetes type 2. 8. Vitamin B12 deficiency. 9. History of carotid endarterectomy in the past. 10. Status post remote coronary artery bypass grafting with mechanical aortic valve replacement with thrombosed valve that required bioprosthetic valve replacement. MEDICATIONS AT DISCHARGE: Include increased Lasix from 20 to 40 mg daily and discontinued Norvasc. The remaining medications are unchanged, include: 1. Aspirin 81 mg daily. 2. Lipitor 20 mg at bedtime. 3. Betamethasone topical ointment daily. 4. Vitamin D3 1000 units daily. 5. Vitamin B12 injections 1000 mcg monthly. 6. Synthroid 75 mcg daily. 7. Metoprolol tartrate 50 mg b.i.d. 8. Furosemide 40 mg daily. 9. Flomax 0.4 mg daily. Please note that the patient's hemoglobin A1c was 9.2. The patient's sugars ranged between 280 to 151 during the hospital stay with 1 exception where it was 376. The patient was advised to adhere to a diabetic diet and follow up with Dr. Reed in regards to further management of his diabetes. FOLLOWUP AT DISCHARGE: The patient is recommended to follow up with his primary care provider Dr. Reed on 07/02/19 at 11:20 a.m. LABORATORY DATA AND STUDIES PERFORMED DURING THE HOSPITAL STAY: On 06/29/19, sodium of 135, potassium 4.5, chloride 98, carbon dioxide 26, BUN 56, creatinine 2.46. Hemoglobin A1c as mentioned above was 9.2. CBC: White blood cell count 6.8, hemoglobin of 11.4, hematocrit of 34, and platelets of 189. Portable chest x-ray, impression: "Low lung volumes with pulmonary interstitial edema. A 2 cm nodule in the right mid lung field, not clearly seen on the previous examination. Recommend continuation of further evaluation with CT of the chest." The patient is being discharged with oxygen at 2 L while ambulating since he desaturated to 85% on room air while walking on 06/28/19. The patient's troponin was 0.05. HOSPITALIZATION COURSE: Grupo Walker is a 78-year-old male with a history of significant dementia, who lives under the care of his sister Kassidy. He usually is fully ambulatory. He has a history of mechanical aortic valve that was placed with bioprosthetic aortic valve after it thrombosed. He also has a history of coronary artery disease and EF of 45% with chronic systolic congestive heart failure. He presented to the hospital on 06/27/19 with shortness of breath with exertion. He was diagnosed with congestive heart failure and diuresed. Despite aggressive diuresis, he continues to be have exertional dyspnea. It is possible that his bioprosthetic aortic valve stenosis may contribute to that. According to echocardiogram in March of 2019, the patient's EF was 45% to 50% with calcified mitral valve and bioprosthetic aortic valve with moderate regurgitation and mild stenosis and calculated aortic valve area of 0.9 cm. At this point, the patient is qualified for oxygen and he is going to be prescribed that at home. He also had a significant venous stasis edema and it was recommended to his sister Kassidy to continue elastic bandages with wraps on a daily basis and to take them off for the night. The patient also is recommended to keep his feet elevated. Please note that the patient's hemoglobin A1c was 9.2. The patient's sugar levels were in the 200 range. The patient is asked to adhere to further diabetic diet and Kassidy was educated about it. It is also likely that he will require further pharmacologic treatment and I deferred that to Dr. Reed for further treatment of the patient's diabetes. The patient was noted to have possibility of 2 cm lung nodule. It is recommended for the patient to follow up with outpatient CT for further evaluation of the nodule. The patient is already scheduled with Dr. Reed for followup appointment on 07/02/19. Physical examination at the time of discharge, blood pressure of 98/52, heart rate of 70 and regular, respiratory rate 17, oxygen saturation 97% on room air, temperature 97.4. General: The patient is a very pleasant 78-year-old male who is in no acute distress. The patient is alert and oriented to self but pleasant and cooperative with evaluation. HEENT: Head: Atraumatic, normocephalic. Eyes: Pupils are equal, reactive to light and accommodation. Oropharynx is clear. Mucosa moist. Neck: Supple. No JVD. No bruits bilaterally. Cardiovascular: Regular rate and rhythm with 1/6 systolic ejection fraction murmur with auscultation of right upper sternal border. Respiratory: Fine crackles at right lower base, otherwise clear. Abdomen: Soft, nontender. Bowel sounds present in all 4 quadrants. Extremities: There is +1 pitting pedal edema bilaterally. There are venous stasis skin changes and excoriations that are covered with eschar in bilateral lower extremities. There is no clubbing, no cyanosis. Pulses are +2 bilaterally. On evaluation of skin, please see venous stasis changes as mentioned above, otherwise unremarkable. Neuro evaluation: Speech clear. Please note that the does have dementia, the patient is oriented x1. Cranial nerves II through XII grossly intact. Motor strength is 5/5 bilaterally. Please note that the patient's Norvasc was discontinued due to low systolic pressures. His Lasix was increased to 40 mg daily. The patient needs to follow up with his primary care provider in regards to his diabetic treatment as well as possibility of CT of his chest to follow up on incidentally found 2 cm nodule documented on chest x-ray during the hospital stay. Please note that this is a short summary of the patient's hospitalization. Please refer to further medical records for details. [id number] #: [id number] MTDD
== END 2019-06-29 13:50 | disposition home or self-care (01) ==
LOC: ED 09:17 → MEDTELE 13:47
PROVIDERS: ADMIT Internal Medicine; ATTEND Internal Medicine
DX: R06.00 Dyspnea, unspecified (principal); T82.857A Stenosis of other cardiac prosthetic devices, implants and grafts, initial encounter; I13.0 Hypertensive heart and chronic kidney disease with heart failure and stage 1 through stage 4 chronic kidney disease, or unspecified chronic kidney disease; I50.22 Chronic systolic (congestive) heart failure; N18.3 Chronic kidney disease, stage 3 (moderate); E11.22 Type 2 diabetes mellitus with diabetic chronic kidney disease; I35.0 Nonrheumatic aortic (valve) stenosis; I25.10 Atherosclerotic heart disease of native coronary artery without angina pectoris; E03.9 Hypothyroidism, unspecified; E53.8 Deficiency of other specified B group vitamins; N40.0 Benign prostatic hyperplasia without lower urinary tract symptoms; E78.00 Pure hypercholesterolemia, unspecified; E78.5 Hyperlipidemia, unspecified; I48.0 Paroxysmal atrial fibrillation; Z95.4 Presence of other heart-valve replacement; Z95.5 Presence of coronary angioplasty implant and graft; Z79.82 Long term (current) use of aspirin; Z79.899 Other long term (current) drug therapy; Z79.890 Hormone replacement therapy
CPT/HCPCS: 36415; 71045; 80048; 80053; 82607; 82746; 83036; 83605; 83735; 83880; 84484; 85025; 87040; 93005; 96372; 96374; 96376; 99285; A9270-GY; G0378; J1650; J1940

== ENCOUNTER 2019-08-07 09:37 | Inpatient (IN) ==
[2019-08-07 10:21] LABS: ABS Eosinophils 0.1 10^3/ul (0-0.6); ABS Lymphocytes 0.8 10^3/ul (1.0-4.8); ABS Monocytes 0.9 10^3/ul (0-0.8); Eosinophil % 1.4 %; Hematocrit 37 % (42-52); Hemoglobin 12.4 g/dL (14.0-18.0); Lymphocyte % 9.8 %; Mean Corpuscular HGB Conc 33 g/dL (31-36); Mean Corpuscular Hemoglobin 31 pg (27-31); Mean Corpuscular Volume 94 fL (80-94); Mean Platelet Volume 7.6 fL (7.4-10.4); Platelet Count 222 10^3/uL (150-450); Red Blood Count 3.96 10^6 /uL (4.18-5.48); Red Cell Distribution Width 16 % (10-15); White Blood Count 7.8 10^3/uL (3.5-10.8)
[2019-08-07 10:41] LABS: ALT 38 U/L (7-52); AST 36 U/L (13-39); Albumin 3.8 g/dL (3.2-5.2); Alkaline Phosphatase 236 U/L (34-104); Anion Gap 10 mmol/L (2-11); BUN/Creatinine Ratio 29.5 (8-20); Blood Urea Nitrogen 64 mg/dL (6-24); CO2 Carbon Dioxide 26 mmol/L (22-32); Calcium 9.4 mg/dL (8.6-10.3); Chloride 98 mmol/L (101-111); Creatine Kinase 174 U/L (10-223); EGFR African American 35.8 (>60); EGFR Non-African American 29.6 (>60); Globulin 3.7 g/dL (2-4); Glucose 192 mg/dL (70-100); Potassium 4.6 mmol/L (3.5-5.0); Sodium 134 mmol/L (135-145); Total Protein 7.5 g/dL (6.4-8.9)
[2019-08-07 10:50] LABS: Troponin I 0.07 ng/mL (<0.03)
[2019-08-07 11:00] LABS: Acetaminophen < 15 mcg/mL; Alcohol, S < 10 mg/dL (<10); Salicylate < 2.50 mg/dL (<30)
[2019-08-07 11:12] LABS: TSH (Thyroid Stimulating Horm) 10.56 mcIU/mL (0.34-5.60)
[2019-08-07 12:10] LABS: Urine Appearance Cloudy; Urine Bilirubin Negative (Negative); Urine Blood Negative (Negative); Urine Color Yellow; Urine Glucose Negative (Negative); Urine Ketones Negative (Negative); Urine Nitrite Negative (Negative); Urine Protein 1+(30 mg/dL) (Negative); Urine Specific Gravity 1.014 (1.010-1.030); Urine Urobilinogen Negative (Negative)
[2019-08-07 12:22] LABS: Urine Bacteria Absent (Absent); Urine Red Blood Cell Absent (Absent); Urine White Blood Cell Trace(0-5/hpf) (Absent)
[2019-08-07 12:30] LABS: Urine Benzodiazepine Screen None Detected (None Detect); Urine Opiates Screen None Detected (None Detect)
[2019-08-07] MEDS: Heparin 5000 UNITS/ML VIAL(*) 1 ml vial SUBCUT SCH ×2 (15:47→21:46)
[2019-08-07] MEDS: NS 0.9% 1000 ml BAG 1,000 ML IV SCH ×2 (15:48→23:15)
[2019-08-07] MEDS: Insulin LISPRO 100 units/ml(*) SUBCUT SCH (17:44)
[2019-08-08] MEDS ORDERED: Ondansetron 4 mg VIAL 2 MG/ML 2 ml VIAL ONE (02:16)
[2019-08-08] MEDS: Ondansetron 4 mg VIAL 2 MG/ML 2 ml VIAL IV PRN ×2 (02:18→10:33)
[2019-08-08] MEDS: Heparin 5000 UNITS/ML VIAL(*) 1 ml vial SUBCUT SCH ×3 (05:11→20:55)
[2019-08-08] MEDS: Insulin LISPRO 100 units/ml(*) SUBCUT SCH ×3 (07:37→17:31)
[2019-08-08] MEDS: NS 0.9% 1000 ml BAG 1,000 ML IV SCH (07:52)
[2019-08-09] MEDS: Heparin 5000 UNITS/ML VIAL(*) 1 ml vial SUBCUT SCH ×3 (04:34→22:22)
[2019-08-09] MEDS: Insulin LISPRO 100 units/ml(*) SUBCUT SCH ×3 (08:31→16:54)
[2019-08-10 04:07] LABS: ABS Basophils 0.1 10^3/ul (0-0.2); ABS Eosinophils 0.1 10^3/ul (0-0.6); ABS Lymphocytes 0.8 10^3/ul (1.0-4.8); Eosinophil % 1.1 %; Hematocrit 33 % (42-52); Hemoglobin 11.1 g/dL (14.0-18.0); Lymphocyte % 9.5 %; Mean Corpuscular HGB Conc 33 g/dL (31-36); Mean Corpuscular Hemoglobin 31 pg (27-31); Mean Corpuscular Volume 94 fL (80-94); Mean Platelet Volume 7.7 fL (7.4-10.4); Platelet Count 186 10^3/uL (150-450); Red Blood Count 3.56 10^6 /uL (4.18-5.48); Red Cell Distribution Width 16 % (10-15); White Blood Count 8.6 10^3/uL (3.5-10.8)
[2019-08-10 04:20] LABS: BUN/Creatinine Ratio 30.1 (8-20); Calcium 8.9 mg/dL (8.6-10.3); EGFR African American 24.4 (>60); EGFR Non-African American 20.2 (>60)
[2019-08-10] MEDS ORDERED: Morphine 4 MG/ML VIAL (1 ml) IV PRN (04:27)
[2019-08-10] MEDS ORDERED: NS 0.9% 1000 ml BAG 1,000 ML IV ONE (04:27)
[2019-08-10] MEDS: Morphine 2 MG/ML SYRINGE IV PRN (04:34)
[2019-08-10 04:39] LABS: Potassium 5.5 mmol/L (3.5-5.0)
[2019-08-10] MEDS: Heparin 5000 UNITS/ML VIAL(*) 1 ml vial SUBCUT SCH ×3 (06:19→21:56)
[2019-08-10] MEDS ORDERED: Sodium Polystyrene ORAL.SUSP 15 GM/60 ML BTL PO ONE (06:22)
[2019-08-10 06:32] LABS: BUN/Creatinine Ratio 32.4 (8-20); Calcium 8.8 mg/dL (8.6-10.3); EGFR African American 26.2 (>60); EGFR Non-African American 21.7 (>60)
[2019-08-10 06:33] LABS: Potassium 5.4 mmol/L (3.5-5.0)
[2019-08-10] MEDS: Insulin LISPRO 100 units/ml(*) SUBCUT SCH ×3 (10:25→17:30)
[2019-08-10] MEDS ORDERED: Magnesium Hydroxide LIQ 30 ML UDC PO PRN (12:25)
[2019-08-10] MEDS ORDERED: Furosemide 20 mg/2 ml IV VIAL IV ONE (13:57)
[2019-08-11] MEDS: Heparin 5000 UNITS/ML VIAL(*) 1 ml vial SUBCUT SCH ×3 (06:55→22:36)
[2019-08-11 07:02] LABS: Urine Appearance Clear; Urine Bilirubin Negative (Negative); Urine Blood Negative (Negative); Urine Color Yellow; Urine Glucose Negative (Negative); Urine Ketones Negative (Negative); Urine Nitrite Negative (Negative); Urine Protein Negative (Negative); Urine Specific Gravity 1.013 (1.010-1.030); Urine Urobilinogen Negative (Negative)
[2019-08-11] MEDS: Insulin LISPRO 100 units/ml(*) SUBCUT SCH ×3 (07:36→17:21)
[2019-08-11] MEDS: Furosemide 20 mg/2 ml IV VIAL IV SCH (08:03)
[2019-08-11 15:09] LABS: ABS Basophils 0.1 10^3/ul (0-0.2); ABS Eosinophils 0.2 10^3/ul (0-0.6); ABS Lymphocytes 0.7 10^3/ul (1.0-4.8); ABS Monocytes 0.8 10^3/ul (0-0.8); Eosinophil % 2.8 %; Hematocrit 32 % (42-52); Hemoglobin 10.9 g/dL (14.0-18.0); Lymphocyte % 11.9 %; Mean Corpuscular HGB Conc 34 g/dL (31-36); Mean Corpuscular Hemoglobin 32 pg (27-31); Mean Corpuscular Volume 94 fL (80-94); Mean Platelet Volume 7.8 fL (7.4-10.4); Platelet Count 165 10^3/uL (150-450); Red Blood Count 3.45 10^6 /uL (4.18-5.48); Red Cell Distribution Width 16 % (10-15); White Blood Count 5.7 10^3/uL (3.5-10.8)
[2019-08-11 15:20] LABS: Calcium 8.8 mg/dL (8.6-10.3); EGFR African American 27.8 (>60); Potassium 4.5 mmol/L (3.5-5.0)
[2019-08-12] MEDS: Morphine 2 MG/ML SYRINGE IV PRN ×2 (05:07→11:06)
[2019-08-12] MEDS: Heparin 5000 UNITS/ML VIAL(*) 1 ml vial SUBCUT SCH ×3 (06:12→23:18)
[2019-08-12] MEDS: Insulin LISPRO 100 units/ml(*) SUBCUT SCH ×3 (08:40→17:33)
[2019-08-12] MEDS: Furosemide 20 mg/2 ml IV VIAL IV SCH (08:44)
[2019-08-12] MEDS ORDERED: Magnesium Hydroxide LIQ 30 ML UDC PO PRN (13:43)
[2019-08-12] MEDS: Polyethylene Glycol 3350 17 GM PACKET PO PRN (15:21)
[2019-08-12] MEDS: Magnesium Hydroxide LIQ 30 ML UDC PO SCH (23:24)
[2019-08-13] MEDS: Morphine 2 MG/ML SYRINGE IV PRN ×2 (00:45→06:10)
[2019-08-13] MEDS: Heparin 5000 UNITS/ML VIAL(*) 1 ml vial SUBCUT SCH ×3 (06:09→21:09)
[2019-08-13] MEDS: Insulin LISPRO 100 units/ml(*) SUBCUT SCH ×3 (07:48→18:01)
[2019-08-13] MEDS: Magnesium Hydroxide LIQ 30 ML UDC PO SCH ×2 (09:34→21:06)
[2019-08-13 10:17] LABS: ABS Basophils 0.1 10^3/ul (0-0.2); ABS Eosinophils 0.2 10^3/ul (0-0.6); ABS Lymphocytes 0.7 10^3/ul (1.0-4.8); ABS Monocytes 0.9 10^3/ul (0-0.8); Eosinophil % 2.6 %; Hematocrit 33 % (42-52); Hemoglobin 11.1 g/dL (14.0-18.0); Lymphocyte % 11.7 %; Mean Corpuscular HGB Conc 33 g/dL (31-36); Mean Corpuscular Hemoglobin 31 pg (27-31); Mean Corpuscular Volume 94 fL (80-94); Mean Platelet Volume 7.6 fL (7.4-10.4); Nucleated Red Blood Cells % 0.1; Platelet Count 154 10^3/uL (150-450); Red Blood Count 3.54 10^6 /uL (4.18-5.48); Red Cell Distribution Width 16 % (10-15); White Blood Count 6.2 10^3/uL (3.5-10.8)
[2019-08-13 10:50] LABS: BUN/Creatinine Ratio 34.9 (8-20); Calcium 8.9 mg/dL (8.6-10.3); EGFR African American 32.6 (>60); Potassium 4.8 mmol/L (3.5-5.0)
[2019-08-13] MEDS: Polyethylene Glycol 3350 17 GM PACKET PO PRN (12:23)
[2019-08-13] MEDS ORDERED: Magnesium CITRATE LIQ 300 ML BTL PO ONE (15:00)
[2019-08-13 15:16] LABS: Magnesium 2.2 mg/dL (1.9-2.7)
[2019-08-14] MEDS: Morphine 2 MG/ML SYRINGE IV PRN ×3 (00:07→23:35)
[2019-08-14] MEDS: Heparin 5000 UNITS/ML VIAL(*) 1 ml vial SUBCUT SCH ×3 (05:59→22:57)
[2019-08-14 08:13] LABS: BUN/Creatinine Ratio 33.7 (8-20); Calcium 8.9 mg/dL (8.6-10.3); EGFR African American 31.4 (>60); EGFR Non-African American 25.9 (>60); Potassium 4.9 mmol/L (3.5-5.0)
[2019-08-14] MEDS: Insulin LISPRO 100 units/ml(*) SUBCUT SCH ×3 (08:20→17:50)
[2019-08-14] MEDS: Magnesium Hydroxide LIQ 30 ML UDC PO SCH ×2 (08:22→22:44)
[2019-08-14] MEDS: Furosemide 40 mg/4 ml IV VIAL IV SCH (08:23)
[2019-08-15] MEDS: Morphine 2 MG/ML SYRINGE IV PRN (03:13)
[2019-08-15] MEDS: Heparin 5000 UNITS/ML VIAL(*) 1 ml vial SUBCUT SCH ×3 (06:32→23:12)
[2019-08-15] MEDS: Insulin LISPRO 100 units/ml(*) SUBCUT SCH ×3 (08:30→17:11)
[2019-08-15] MEDS: Magnesium Hydroxide LIQ 30 ML UDC PO SCH ×2 (08:57→23:17)
[2019-08-15] MEDS: Furosemide 40 mg/4 ml IV VIAL IV SCH (08:57)
[2019-08-15] MEDS ORDERED: Furosemide 20 mg/2 ml IV VIAL IV ONE (16:53)
[2019-08-15] MEDS: Insulin GLARGINE 100 un/ml (*) 10 ml VIAL SUBCUT SCH (23:12)
[2019-08-16] MEDS: Morphine 2 MG/ML SYRINGE IV PRN ×4 (05:45→23:14)
[2019-08-16] MEDS: Magnesium Hydroxide LIQ 30 ML UDC PO SCH ×2 (08:32→23:13)
[2019-08-16] MEDS: Heparin 5000 UNITS/ML VIAL(*) 1 ml vial SUBCUT SCH ×3 (08:33→23:00)
[2019-08-16] MEDS: Furosemide 40 mg/4 ml IV VIAL IV SCH (08:36)
[2019-08-16] MEDS: Insulin LISPRO 100 units/ml(*) SUBCUT SCH ×3 (08:56→16:21)
[2019-08-16 10:34] LABS: BUN/Creatinine Ratio 34.1 (8-20); Calcium 8.5 mg/dL (8.6-10.3); EGFR African American 30.1 (>60); EGFR Non-African American 24.9 (>60); Magnesium 2.9 mg/dL (1.9-2.7); Potassium 4.4 mmol/L (3.5-5.0)
[2019-08-16 11:16] LABS: Total Bilirubin 1.5 mg/dL (0.2-1.0)
[2019-08-16] MEDS: Insulin GLARGINE 100 un/ml (*) 10 ml VIAL SUBCUT SCH (23:00)
[2019-08-17] MEDS: Morphine 2 MG/ML SYRINGE IV PRN (03:54)
[2019-08-17] MEDS: Heparin 5000 UNITS/ML VIAL(*) 1 ml vial SUBCUT SCH ×3 (05:54→21:33)
[2019-08-17] MEDS: Insulin LISPRO 100 units/ml(*) SUBCUT SCH ×3 (07:40→21:30)
[2019-08-17] MEDS: Magnesium Hydroxide LIQ 30 ML UDC PO SCH ×2 (07:54→21:30)
[2019-08-17 11:00] LABS: ABS Basophils 0.1 10^3/ul (0-0.2); ABS Eosinophils 0.1 10^3/ul (0-0.6); ABS Lymphocytes 0.6 10^3/ul (1.0-4.8); ABS Monocytes 0.8 10^3/ul (0-0.8); Eosinophil % 1.4 %; Hematocrit 31 % (42-52); Hemoglobin 10.1 g/dL (14.0-18.0); Lymphocyte % 8.8 %; Mean Corpuscular HGB Conc 33 g/dL (31-36); Mean Corpuscular Hemoglobin 31 pg (27-31); Mean Corpuscular Volume 93 fL (80-94); Mean Platelet Volume 7.8 fL (7.4-10.4); Platelet Count 134 10^3/uL (150-450); Red Blood Count 3.31 10^6 /uL (4.18-5.48); Red Cell Distribution Width 16 % (10-15); White Blood Count 6.5 10^3/uL (3.5-10.8)
[2019-08-17 11:17] LABS: BUN/Creatinine Ratio 34.2 (8-20); Calcium 8.6 mg/dL (8.6-10.3); EGFR African American 31.4 (>60); EGFR Non-African American 25.9 (>60); Potassium 4.6 mmol/L (3.5-5.0)
[2019-08-17] MEDS: Insulin GLARGINE 100 un/ml (*) 10 ml VIAL SUBCUT SCH (21:33)
[2019-08-18] MEDS ORDERED: Morphine 4 MG/ML VIAL (1 ml) IV PRN (03:50)
[2019-08-18] MEDS: Morphine 2 MG/ML SYRINGE IV PRN ×2 (03:58→17:36)
[2019-08-18] MEDS: Heparin 5000 UNITS/ML VIAL(*) 1 ml vial SUBCUT SCH ×3 (06:27→23:04)
[2019-08-18] MEDS: Insulin LISPRO 100 units/ml(*) SUBCUT SCH ×3 (09:09→17:35)
[2019-08-18] MEDS: Magnesium Hydroxide LIQ 30 ML UDC PO SCH ×2 (09:10→20:34)
[2019-08-18] MEDS: Insulin GLARGINE 100 un/ml (*) 10 ml VIAL SUBCUT SCH (20:31)
[2019-08-19] MEDS: Morphine 2 MG/ML SYRINGE IV PRN ×2 (01:55→22:30)
[2019-08-19] MEDS: Heparin 5000 UNITS/ML VIAL(*) 1 ml vial SUBCUT SCH ×3 (06:00→22:30)
[2019-08-19] MEDS: Insulin LISPRO 100 units/ml(*) SUBCUT SCH ×3 (08:36→17:22)
[2019-08-19] MEDS: Magnesium Hydroxide LIQ 30 ML UDC PO SCH (08:39)
[2019-08-19] MEDS: Insulin GLARGINE 100 un/ml (*) 10 ml VIAL SUBCUT SCH ×2 (08:46→22:29)
[2019-08-19] MEDS ORDERED: LORazepam 2 mg VIAL 1 ml IV PUSH ONE (13:36)
[2019-08-19] MEDS ORDERED: Lorazepam PYXIS KEY PRN (13:36)
[2019-08-20] MEDS: Magnesium Hydroxide LIQ 30 ML UDC PO SCH (00:22)
[2019-08-20] MEDS: Heparin 5000 UNITS/ML VIAL(*) 1 ml vial SUBCUT SCH ×3 (05:15→20:23)
[2019-08-20] MEDS: Insulin LISPRO 100 units/ml(*) SUBCUT SCH ×3 (08:34→17:25)
[2019-08-20] MEDS: Insulin GLARGINE 100 un/ml (*) 10 ml VIAL SUBCUT SCH ×2 (08:37→20:26)
[2019-08-20] MEDS: Nystatin TOP POWDER 15 GM BTL TOPICAL SCH ×2 (08:38→21:06)
[2019-08-21] MEDS: Heparin 5000 UNITS/ML VIAL(*) 1 ml vial SUBCUT SCH ×3 (05:12→21:29)
[2019-08-21] MEDS: Insulin LISPRO 100 units/ml(*) SUBCUT SCH ×3 (07:56→16:59)
[2019-08-21] MEDS: Insulin GLARGINE 100 un/ml (*) 10 ml VIAL SUBCUT SCH ×2 (08:26→21:29)
[2019-08-21] MEDS: Nystatin TOP POWDER 15 GM BTL TOPICAL SCH ×2 (10:29→21:31)
[2019-08-22] MEDS: Heparin 5000 UNITS/ML VIAL(*) 1 ml vial SUBCUT SCH ×3 (04:27→22:02)
[2019-08-22 08:12] LABS: ABS Basophils 0.1 10^3/ul (0-0.2); ABS Lymphocytes 0.2 10^3/ul (1.0-4.8); ABS Monocytes 0.4 10^3/ul (0-0.8); Hematocrit 33 % (42-52); Hemoglobin 10.7 g/dL (14.0-18.0); Lymphocyte % 1.6 %; Mean Corpuscular HGB Conc 33 g/dL (31-36); Mean Corpuscular Hemoglobin 30 pg (27-31); Mean Corpuscular Volume 91 fL (80-94); Mean Platelet Volume 7.9 fL (7.4-10.4); Platelet Count 161 10^3/uL (150-450); Red Blood Count 3.58 10^6 /uL (4.18-5.48); Red Cell Distribution Width 16 % (10-15); White Blood Count 12.4 10^3/uL (3.5-10.8)
[2019-08-22 08:28] LABS: BUN/Creatinine Ratio 26.8 (8-20); Calcium 8.7 mg/dL (8.6-10.3); EGFR African American 33.3 (>60); EGFR Non-African American 27.5 (>60); Potassium 4.8 mmol/L (3.5-5.0)
[2019-08-22 08:55] LABS: Albumin 3.3 g/dL (3.2-5.2); Albumin/Globulin Ratio 0.9 (1-3); C Reactive Protein 99.92 mg/L (<8.01); Globulin 3.5 g/dL (2-4); Total Bilirubin 1.7 mg/dL (0.2-1.0); Total Protein 6.8 g/dL (6.4-8.9)
[2019-08-22] MEDS ORDERED: Vancomycin per Pharmacy 1 EA NOTE FOLLOW UP PRN (08:56)
[2019-08-22] MEDS ORDERED: Vancomycin(*) 1,250 MG in NS 0.9% 250 ml 250 ML IVPB ONE (09:00)
[2019-08-22] MEDS ORDERED: CEFEPIME IVPB SCH (09:00)
[2019-08-22] MEDS ORDERED: NS 0.9% IVPB SCH (09:00)
[2019-08-22] MEDS ORDERED: Vancomycin(*) 1,500 MG in NS 0.9% 250 ml 250 ML IVPB ONE (09:00)
[2019-08-22] MEDS ORDERED: NS 0.9% 1000 ml BAG 1,000 ML IV ONE (09:13)
[2019-08-22] MEDS ORDERED: NS 0.9% 1000 ml BAG 1,000 ML IV SCH (09:15)
[2019-08-22] MEDS: Cefepime 1 GM in Dextrose(*) 1 GM/50 ML BAG IV SCH ×2 (09:30→21:59)
[2019-08-22] MEDS: Insulin LISPRO 100 units/ml(*) SUBCUT SCH ×3 (09:32→17:51)
[2019-08-22] MEDS: Insulin GLARGINE 100 un/ml (*) 10 ml VIAL SUBCUT SCH ×2 (09:38→21:59)
[2019-08-22] MEDS: Nystatin TOP POWDER 15 GM BTL TOPICAL SCH ×2 (10:09→22:00)
[2019-08-22] MEDS ORDERED: LORazepam 2 mg VIAL 1 ml IV PUSH ONE (10:55)
[2019-08-22] MEDS ORDERED: Lorazepam PYXIS KEY PRN (10:55)
[2019-08-22] MEDS ORDERED: Vancomycin(*) 500 MG in NS 0.9% 250 ml 250 ML IVPB SCH (22:00)
[2019-08-22 22:23] LABS: Urine Appearance Cloudy; Urine Bilirubin Negative (Negative); Urine Blood 2+ (Negative); Urine Color Amber; Urine Glucose Negative (Negative); Urine Ketones Negative (Negative); Urine Nitrite Negative (Negative); Urine Protein 2+(100 mg/dL) (Negative); Urine Specific Gravity 1.018 (1.010-1.030); Urine Urobilinogen Negative (Negative)
[2019-08-22 22:37] LABS: Urine Bacteria 1+ (Absent); Urine Red Blood Cell Trace(0-2/hpf) (Absent); Urine Squamous Epithelial Cell Present (Absent); Urine White Blood Cell Trace(0-5/hpf) (Absent)
[2019-08-23] MEDS ORDERED: Furosemide 20 mg/2 ml IV VIAL IV ONE (00:28)
[2019-08-23 05:08] LABS: EGFR African American 27.6 (>60); EGFR Non-African American 22.8 (>60)
[2019-08-23] MEDS: Heparin 5000 UNITS/ML VIAL(*) 1 ml vial SUBCUT SCH ×3 (06:12→22:05)
[2019-08-23] MEDS: Cefepime 1 GM in Dextrose(*) 1 GM/50 ML BAG IV SCH (09:29)
[2019-08-23] MEDS: Insulin LISPRO 100 units/ml(*) SUBCUT SCH ×3 (09:29→17:28)
[2019-08-23] MEDS: Insulin GLARGINE 100 un/ml (*) 10 ml VIAL SUBCUT SCH ×2 (09:30→22:07)
[2019-08-23] MEDS: Nystatin TOP POWDER 15 GM BTL TOPICAL SCH ×2 (09:38→21:39)
[2019-08-23] MEDS ORDERED: NS 0.9% 500 ml BAG 500 ML IV ONE ×2 (11:04→15:34)
[2019-08-23] MEDS: ceFAZolin 1 GM ADVAN(*) 1 GM in NS 0.9% 50 ML 50 ML IVPB SCH ×2 (11:38→22:14)
[2019-08-23] MEDS: Ondansetron ODT 4 mg TAB 4 MG TAB PO PRN (21:57)
[2019-08-23 23:21] LABS: ABS Lymphocytes 0.6 10^3/ul (1.0-4.8); ABS Monocytes 1.2 10^3/ul (0-0.8); Eosinophil % 0.1 %; Hematocrit 29 % (42-52); Hemoglobin 9.3 g/dL (14.0-18.0); Lymphocyte % 4.1 %; Mean Corpuscular HGB Conc 32 g/dL (31-36); Mean Corpuscular Hemoglobin 29 pg (27-31); Mean Corpuscular Volume 92 fL (80-94); Mean Platelet Volume 7.7 fL (7.4-10.4); Nucleated Red Blood Cells % 0.2; Platelet Count 112 10^3/uL (150-450); Red Blood Count 3.18 10^6 /uL (4.18-5.48); Red Cell Distribution Width 16 % (10-15); White Blood Count 15.8 10^3/uL (3.5-10.8)
[2019-08-23 23:37] LABS: ALT 49 U/L (7-52); AST 49 U/L (13-39); Albumin 2.7 g/dL (3.2-5.2); Albumin/Globulin Ratio 0.9 (1-3); Alkaline Phosphatase 131 U/L (34-104); Amylase < 10 U/L (29-103); Anion Gap 8 mmol/L (2-11); BUN/Creatinine Ratio 26.4 (8-20); Blood Urea Nitrogen 77 mg/dL (6-24); CO2 Carbon Dioxide 20 mmol/L (22-32); Calcium 7.7 mg/dL (8.6-10.3); Chloride 102 mmol/L (101-111); EGFR African American 25.4 (>60); Globulin 3.1 g/dL (2-4); Glucose 152 mg/dL (70-100); Indirect Bilirubin 0.5 mg/dL (0.3-1.0); Sodium 130 mmol/L (135-145); Total Protein 5.8 g/dL (6.4-8.9)
[2019-08-24] MEDS: Heparin 5000 UNITS/ML VIAL(*) 1 ml vial SUBCUT SCH ×3 (04:58→22:27)
[2019-08-24 06:42] LABS: ABS Basophils 0.1 10^3/ul (0-0.2); ABS Eosinophils 0.1 10^3/ul (0-0.6); ABS Lymphocytes 0.9 10^3/ul (1.0-4.8); ABS Monocytes 1.2 10^3/ul (0-0.8); Eosinophil % 0.3 %; Hematocrit 30 % (42-52); Hemoglobin 9.8 g/dL (14.0-18.0); Lymphocyte % 5.6 %; Mean Corpuscular HGB Conc 32 g/dL (31-36); Mean Corpuscular Hemoglobin 30 pg (27-31); Mean Corpuscular Volume 91 fL (80-94); Mean Platelet Volume 8.5 fL (7.4-10.4); Platelet Count 129 10^3/uL (150-450); Red Blood Count 3.32 10^6 /uL (4.18-5.48); Red Cell Distribution Width 16 % (10-15); White Blood Count 15.9 10^3/uL (3.5-10.8)
[2019-08-24 06:58] LABS: BUN/Creatinine Ratio 26.3 (8-20); EGFR African American 25.3 (>60); EGFR Non-African American 20.9 (>60)
[2019-08-24 07:00] LABS: Potassium 5.3 mmol/L (3.5-5.0)
[2019-08-24] MEDS: Insulin LISPRO 100 units/ml(*) SUBCUT SCH ×3 (07:50→16:39)
[2019-08-24] MEDS ORDERED: Sodium Polystyrene ORAL.SUSP 15 GM/60 ML BTL PO ONE (08:30)
[2019-08-24] MEDS ORDERED: fentaNYL 100 mcg/2 ml 50 MCG/ML VIAL ONE (08:46)
[2019-08-24] MEDS ORDERED: Midazolam 5 mg/5 ml VIAL 1 mg/ml 5 ml VIAL (5 mg) ONE (08:46)
[2019-08-24] MEDS ORDERED: Naloxone 0.4 mg VIAL 0.4 mg/ml 1 ml VIAL ONE (08:47)
[2019-08-24] MEDS ORDERED: Flumazenil 0.5 mg/5 ml 0.1 MG/ML 5 ml VIAL ONE (08:47)
[2019-08-24] MEDS ORDERED: Vancomycin Trough Check NOTE FOLLOW UP ONE (09:30)
[2019-08-24] MEDS: ceFAZolin 1 GM ADVAN(*) 1 GM in NS 0.9% 50 ML 50 ML IVPB SCH ×2 (10:46→22:34)
[2019-08-24] MEDS: Insulin GLARGINE 100 un/ml (*) 10 ml VIAL SUBCUT SCH ×2 (10:46→22:49)
[2019-08-24] MEDS: Nystatin TOP POWDER 15 GM BTL TOPICAL SCH ×2 (10:46→22:28)
[2019-08-25] MEDS: Heparin 5000 UNITS/ML VIAL(*) 1 ml vial SUBCUT SCH ×3 (05:51→20:48)
[2019-08-25 07:39] LABS: BUN/Creatinine Ratio 27.3 (8-20); Blood Urea Nitrogen 82 mg/dL (6-24); CO2 Carbon Dioxide 20 mmol/L (22-32); Calcium 8.3 mg/dL (8.6-10.3); Chloride 102 mmol/L (101-111); EGFR African American 24.6 (>60); EGFR Non-African American 20.3 (>60); Glucose 97 mg/dL (70-100); Sodium 131 mmol/L (135-145)
[2019-08-25 07:46] LABS: ABS Lymphocytes 0.9 10^3/ul (1.0-4.8); ABS Monocytes 1.2 10^3/ul (0-0.8); Eosinophil % 0.2 %; Hematocrit 32 % (42-52); Hemoglobin 10.4 g/dL (14.0-18.0); Mean Corpuscular HGB Conc 32 g/dL (31-36); Mean Corpuscular Hemoglobin 30 pg (27-31); Mean Corpuscular Volume 93 fL (80-94); Mean Platelet Volume 9.5 fL (7.4-10.4); Nucleated Red Blood Cells % 0.1; Platelet Count 122 10^3/uL (150-450); Red Blood Count 3.49 10^6 /uL (4.18-5.48); Red Cell Distribution Width 16 % (10-15); White Blood Count 14.9 10^3/uL (3.5-10.8)
[2019-08-25 07:54] LABS: Anion Gap 9 mmol/L (2-11)
[2019-08-25] MEDS: Insulin LISPRO 100 units/ml(*) SUBCUT SCH ×3 (08:00→17:13)
[2019-08-25] MEDS ORDERED: Sodium Polystyrene ORAL.SUSP 15 GM/60 ML BTL PO ONE (09:09)
[2019-08-25] MEDS: Insulin GLARGINE 100 un/ml (*) 10 ml VIAL SUBCUT SCH ×2 (09:30→20:48)
[2019-08-25] MEDS: ceFAZolin 1 GM ADVAN(*) 1 GM in NS 0.9% 50 ML 50 ML IVPB SCH ×3 (09:56→15:18)
[2019-08-25] MEDS: Nystatin TOP POWDER 15 GM BTL TOPICAL SCH ×2 (14:01→20:48)
[2019-08-25] MEDS ORDERED: HYDROmorphone 0.5 MG/0.5 ML SYRINGE IV SLOW PU PRN (14:54)
[2019-08-25 16:04] LABS: Blood Urea Nitrogen 85 mg/dL (6-24); CO2 Carbon Dioxide 19 mmol/L (22-32); Calcium 7.9 mg/dL (8.6-10.3); Chloride 103 mmol/L (101-111); EGFR African American 25.3 (>60); EGFR Non-African American 20.9 (>60); Glucose 68 mg/dL (70-100); Sodium 134 mmol/L (135-145)
[2019-08-25 16:16] LABS: Anion Gap 12 mmol/L (2-11)
[2019-08-25] MEDS ORDERED: Furosemide 100 mg/10 ml IV VIAL IV ONE (16:45)
[2019-08-25] MEDS: HYDROmorphone 0.5 MG/0.5 ML SYRINGE IV SLOW PU PRN (20:46)
[2019-08-26] MEDS ORDERED: HYDROmorphone 0.5 MG/0.5 ML SYRINGE IV SLOW PU ONE (00:57)
[2019-08-26] MEDS: HYDROmorphone 0.5 MG/0.5 ML SYRINGE IV SLOW PU PRN ×4 (01:31→19:36)
[2019-08-26] MEDS: ceFAZolin 1 GM ADVAN(*) 1 GM in NS 0.9% 50 ML 50 ML IVPB SCH ×2 (02:57→16:39)
[2019-08-26] MEDS ORDERED: LORazepam 2 mg VIAL 1 ml IV PUSH ONE (03:26)
[2019-08-26] MEDS ORDERED: Lorazepam PYXIS KEY PRN (03:26)
[2019-08-26] MEDS: Heparin 5000 UNITS/ML VIAL(*) 1 ml vial SUBCUT SCH ×3 (05:07→22:46)
[2019-08-26 06:21] LABS: Hematocrit 33 % (42-52); Hemoglobin 10.5 g/dL (14.0-18.0); Mean Corpuscular HGB Conc 32 g/dL (31-36); Mean Corpuscular Hemoglobin 30 pg (27-31); Mean Corpuscular Volume 93 fL (80-94); Mean Platelet Volume 8.7 fL (7.4-10.4); Platelet Count 125 10^3/uL (150-450); Red Blood Count 3.53 10^6 /uL (4.18-5.48); Red Cell Distribution Width 16 % (10-15)
[2019-08-26 06:23] LABS: ABS Lymphocytes 0.7 10^3/ul (1.0-4.8); ABS Monocytes 1.1 10^3/ul (0-0.8); Eosinophil % 0.2 %; Lymphocyte % 5.5 %; Nucleated Red Blood Cells % 0.2
[2019-08-26 06:37] LABS: Calcium 7.9 mg/dL (8.6-10.3); EGFR African American 25.6 (>60); EGFR Non-African American 21.2 (>60); Potassium 4.5 mmol/L (3.5-5.0)
[2019-08-26] MEDS: Dextrose 50% Syringe 50 ml 25 GM/50 ML SYRINGE IV PUSH PRN ×2 (07:10→12:30)
[2019-08-26] MEDS: Ondansetron ODT 4 mg TAB 4 MG TAB PO PRN (07:12)
[2019-08-26] MEDS: Insulin LISPRO 100 units/ml(*) SUBCUT SCH ×3 (08:18→17:30)
[2019-08-26] MEDS ORDERED: Furosemide 40 mg/4 ml IV VIAL IV ONE (09:13)
[2019-08-26] MEDS: Nystatin TOP POWDER 15 GM BTL TOPICAL SCH (11:32)
[2019-08-26] MEDS: Insulin GLARGINE 100 un/ml (*) 10 ml VIAL SUBCUT SCH (11:56)
[2019-08-26] MEDS ORDERED: Insulin GLARGINE 100 un/ml (*) 10 ml VIAL SUBCUT SCH (21:00)
[2019-08-27] MEDS: Nystatin TOP POWDER 15 GM BTL TOPICAL SCH ×3 (00:46→22:18)
[2019-08-27] MEDS: HYDROmorphone 0.5 MG/0.5 ML SYRINGE IV SLOW PU PRN ×2 (00:47→22:22)
[2019-08-27] MEDS: ceFAZolin 1 GM ADVAN(*) 1 GM in NS 0.9% 50 ML 50 ML IVPB SCH ×2 (03:07→15:31)
[2019-08-27] MEDS: Heparin 5000 UNITS/ML VIAL(*) 1 ml vial SUBCUT SCH ×3 (06:07→22:30)
[2019-08-27] MEDS ORDERED: Furosemide 40 mg/4 ml IV VIAL IV ONE (07:54)
[2019-08-27 08:11] LABS: ABS Basophils 0.1 10^3/ul (0-0.2); ABS Lymphocytes 0.6 10^3/ul (1.0-4.8); ABS Monocytes 0.9 10^3/ul (0-0.8); Eosinophil % 0.3 %; Hematocrit 31 % (42-52); Hemoglobin 10.1 g/dL (14.0-18.0); Lymphocyte % 6.8 %; Mean Corpuscular HGB Conc 33 g/dL (31-36); Mean Corpuscular Hemoglobin 30 pg (27-31); Mean Corpuscular Volume 92 fL (80-94); Nucleated Red Blood Cells % 0.1; Platelet Count 126 10^3/uL (150-450); Red Blood Count 3.34 10^6 /uL (4.18-5.48); Red Cell Distribution Width 16 % (10-15)
[2019-08-27 08:28] LABS: Albumin/Globulin Ratio 0.9 (1-3); BUN/Creatinine Ratio 29.6 (8-20); Calcium 8.6 mg/dL (8.6-10.3); EGFR African American 26.7 (>60); Globulin 3.4 g/dL (2-4); Total Bilirubin 1.3 mg/dL (0.2-1.0); Total Protein 6.4 g/dL (6.4-8.9)
[2019-08-27] MEDS: Insulin LISPRO 100 units/ml(*) SUBCUT SCH ×3 (09:46→17:32)
[2019-08-28] MEDS: ceFAZolin 1 GM ADVAN(*) 1 GM in NS 0.9% 50 ML 50 ML IVPB SCH ×2 (02:51→15:45)
[2019-08-28] MEDS: Heparin 5000 UNITS/ML VIAL(*) 1 ml vial SUBCUT SCH ×3 (06:13→23:59)
[2019-08-28 06:42] LABS: BUN/Creatinine Ratio 30.8 (8-20); Calcium 8.9 mg/dL (8.6-10.3); EGFR African American 26.8 (>60); EGFR Non-African American 22.1 (>60)
[2019-08-28 06:44] LABS: Potassium 5.6 mmol/L (3.5-5.0)
[2019-08-28] MEDS ORDERED: Sodium Polystyrene ORAL.SUSP 15 GM/60 ML BTL PO ONE (07:12)
[2019-08-28] MEDS ORDERED: Furosemide 40 mg/4 ml IV VIAL IV SLOW PU ONE (07:12)
[2019-08-28] MEDS: Insulin LISPRO 100 units/ml(*) SUBCUT SCH ×3 (09:18→17:52)
[2019-08-28] MEDS: Nystatin TOP POWDER 15 GM BTL TOPICAL SCH ×2 (09:21→23:59)
[2019-08-28] MEDS ORDERED: Lorazepam PYXIS KEY PRN (13:44)
[2019-08-28] MEDS ORDERED: LORazepam 2 mg VIAL 1 ml IV PUSH ONE (13:45)
[2019-08-28 17:30] LABS: BUN/Creatinine Ratio 33.2 (8-20); Calcium 6.5 mg/dL (8.6-10.3); EGFR African American 37.6 (>60); Potassium 3.4 mmol/L (3.5-5.0)
[2019-08-28] MEDS: Insulin GLARGINE 100 un/ml (*) 10 ml VIAL SUBCUT SCH (23:57)
[2019-08-29] MEDS: Ondansetron ODT 4 mg TAB 4 MG TAB PO PRN (00:24)
[2019-08-29] MEDS: ceFAZolin 1 GM ADVAN(*) 1 GM in NS 0.9% 50 ML 50 ML IVPB SCH (03:15)
[2019-08-29] MEDS: Heparin 5000 UNITS/ML VIAL(*) 1 ml vial SUBCUT SCH (05:22)
[2019-08-29 08:20] LABS: Calcium 8.3 mg/dL (8.6-10.3); Potassium 4.8 mmol/L (3.5-5.0)
[2019-08-29 08:26] LABS: BUN/Creatinine Ratio 32.2 (8-20); EGFR African American 28.9 (>60); EGFR Non-African American 23.9 (>60)
[2019-08-29] MEDS ORDERED: Sodium Polystyrene ORAL.SUSP 15 GM/60 ML BTL PO SCH (09:00)
[2019-08-29] MEDS: Insulin GLARGINE 100 un/ml (*) 10 ml VIAL SUBCUT SCH (10:24)
[2019-08-29] MEDS: Insulin LISPRO 100 units/ml(*) SUBCUT SCH (10:24)
[2019-08-29] MEDS: Nystatin TOP POWDER 15 GM BTL TOPICAL SCH (10:30)
[2019-08-29] MEDS ORDERED: LORazepam 1 mg TAB (*) PO ONE (11:05)
[2019-08-29] MEDS ORDERED: LORazepam 1 mg TAB (*) ONE (11:13)
[2019-08-29 11:40] VITALS: BP 121/59
== END 2019-08-29 11:45 | DRG 291 ==
LOC: ED 09:37 → OBSVTOIN 13:50 → INTOOBSV 13:50 → MED 14:26 → INTOOBSV 15:14 → OBSVTOIN 15:14 → MED 15:14
PROVIDERS: ADMIT Internal Medicine; ATTEND Internal Medicine